=== PATIENT | male | born 1955 | race Two or more races ===

== ENCOUNTER 2019-10-21 07:43 | Inpatient (IN) | payer MEDICAID ==
[~2019-10-21] VITALS: Ht 152.4 cm; Wt 64.5 kg
[2019-10-21 10:08] LABS: Basophils # (auto) 0 10 ^3/uL (0-0.2); Basophils % (auto) 0.1 % (0.0-2.0); Eosinophils # (auto) 0 10 ^3/uL (0-0.8); Hematocrit 45.4 % (41.0-53.0); Hemoglobin 16.1 g/dL (13.5-17.5); Lymphocytes # (auto) 1.1 10 ^3/uL (0.4-5.4); Lymphocytes % (auto) 7.6 % (10.0-50.0); Mean Corpuscular Hgb Conc. 35.4 g/dL (32.0-36.0); Mean Corpuscular Volume 93.4 fL (80.0-100.0); Monocytes # (auto) 0.4 10 ^3/uL (0-1.3); Neutrophils # (auto) 12.4 10 ^3/uL (1.6-8.6); Neutrophils % (auto) 89.3 % (37.0-80.0); Platelet Count (auto) 199 10^3/uL (140-450); Red Blood Cells 4.86 10^6/uL (4.5-5.90); Red Cell Distribution Width 12.9 % (11.8-14.3); White Blood Cell 13.9 10^3/uL (4.4-10.8)
[2019-10-21] MEDS ORDERED: ZINC SULFATE 220mg CAP or TAB PO ONE (10:30)
[2019-10-21] MEDS ORDERED: DexAMETHasone SOD PHOS 10MG/1ML VIAL INJ IV ONE (10:30)
[2019-10-21] MEDS ORDERED: CHOLECALCIFEROL (VITD3) 2,000 UNIT CAP PO ONE (10:30)
[2019-10-21] MEDS ORDERED: cefTRIAXone 1GM/50ML D5W 50 ML IV ONE (10:30)
[2019-10-21] MEDS ORDERED: DOXYCYCLINE 100MG/250ML 250 ML IV ONE (10:30)
[2019-10-21] MEDS ORDERED: ASCORBIC ACID 500 MG TAB PO ONE (10:30)
[2019-10-21 10:37] LABS: Anion Gap 8 (5-15); Blood Urea Nitrogen 11 mg/dL (7-18); Calcium 9.1 mg/dL (8.5-10.1); Carbon Dioxide 25 mmol/L (21-32); Chloride 99 mmol/L (98-107); Glucose 175 mg/dL (74-106); Potassium 3.6 mmol/L (3.5-5.1); Sodium 132 mmol/L (136-145)
[2019-10-21 10:49] LABS: Alanine Aminotransferase 130 U/L (16-61); Alkaline Phosphatase 79 U/L (45-117); Aspartate Aminotransferase 143 U/L (15-37); BUN/Creatinine Ratio 11.7; GFR African American 105 mL/min; GFR Non-African American 86 mL/min; Total Protein 8.4 g/dL (6.4-8.2)
[2019-10-21 11:10] LABS: INR 1.07 (0.9-1.15)
[2019-10-21 11:13] LABS: Magnesium 2.3 mg/dL (1.6-2.6)
[2019-10-21] MEDS ORDERED: SODIUM CHLORIDE 0.9% 1,000 ML IV SCH (13:50)
[2019-10-21] MEDS ORDERED: ACETAMINOPHEN 500 MG TAB PO PRN ×2 (14:00)
[2019-10-21] MEDS ORDERED: NITROGLYCERIN 0.4 MG SL TAB SL PRN (14:00)
[2019-10-21] MEDS ORDERED: DEXTROSE (50%) 50ML SYRG IV PRN (14:00)
[2019-10-21] MEDS ORDERED: traMADol HCL 50 MG TAB PO PRN (14:00)
[2019-10-21] MEDS ORDERED: LACTULOSE 20Gm/30ML SOLN PO PRN (14:00)
[2019-10-21] MEDS: ALBUTEROL SULF HFA 90MCG INH 200DOSE IN SCH (14:00)
[2019-10-21] MEDS: CLINDAMYCIN 600MG IV 50 ML IV SCH ×2 (14:00→22:01)
[2019-10-21] MEDS ORDERED: MORPHINE SULF INJ 2 MG/ML SYRINGE 1ML IV PRN (14:00)
[2019-10-21] MEDS ORDERED: PROMETHAZINE HCL 25 MG/ML 1ML IV PRN (14:00)
[2019-10-21 14:36] VITALS: BP 122/70
[2019-10-21] MEDS ORDERED: LOSA-39 PO (15:24)
[2019-10-21] MEDS ORDERED: TAMS0.4C36 PO (15:24)
[2019-10-21] MEDS ORDERED: AMLO5TAB15 PO (15:24)
[2019-10-21] MEDS ORDERED: GABA300C10 PO (15:24)
[2019-10-21 15:50] VITALS: BP 122/67
[2019-10-21 16:39] VITALS: BP 122/67
[2019-10-21] MEDS: ACCU-CHEK COMFORT CURVE STRIP VI SCH ×2 (16:40→21:47)
[2019-10-21] MEDS: InsuLIN REG 1unit/0.01ml Soln (100units/ml) SC SCH ×2 (16:45→21:48)
[2019-10-21 22:09] VITALS: BP 129/70
[2019-10-22 05:09] VITALS: BP 130/72
[2019-10-22] MEDS: ACCU-CHEK COMFORT CURVE STRIP VI SCH ×4 (05:50→23:26)
[2019-10-22] MEDS: InsuLIN REG 1unit/0.01ml Soln (100units/ml) SC SCH ×4 (05:51→23:27)
[2019-10-22] MEDS: CLINDAMYCIN 600MG IV 50 ML IV SCH (05:54)
[2019-10-22] MEDS: ALBUTEROL SULF HFA 90MCG INH 200DOSE IN SCH ×3 (06:47→22:07)
[2019-10-22 06:53] LABS: Potassium 3.7 mmol/L (3.5-5.1)
[2019-10-22 07:01] LABS: Albumin 2.5 g/dL (3.4-5.0); BUN/Creatinine Ratio 18.4; Bilirubin, Total 0.5 mg/dL (0.2-1.0); Calcium 8.8 mg/dL (8.5-10.1); Total Protein 7.4 g/dL (6.4-8.2)
[2019-10-22 07:07] LABS: Basophils # (auto) 0 10 ^3/uL (0-0.2); Basophils % (auto) 0.1 % (0.0-2.0); Eosinophils # (auto) 0 10 ^3/uL (0-0.8); Hematocrit 43.9 % (41.0-53.0); Hemoglobin 15.4 g/dL (13.5-17.5); Lymphocytes # (auto) 0.7 10 ^3/uL (0.4-5.4); Mean Corpuscular Hemoglobin 32.5 pg (28.0-32.0); Mean Corpuscular Hgb Conc. 35.2 g/dL (32.0-36.0); Mean Corpuscular Volume 92.4 fL (80.0-100.0); Monocytes # (auto) 0.5 10 ^3/uL (0-1.3); Monocytes % (auto) 2.9 % (0.0-12.0); Neutrophils # (auto) 16.9 10 ^3/uL (1.6-8.6); Nucleated Red Blood Cells % 0.1 %; Platelet Count (auto) 235 10^3/uL (140-450); Red Blood Cells 4.75 10^6/uL (4.5-5.90); Red Cell Distribution Width 12.6 % (11.8-14.3); White Blood Cell 18.1 10^3/uL (4.4-10.8)
[2019-10-22 09:00] VITALS: BP 114/63
[2019-10-22] MEDS ORDERED: ENOXAPARIN SOD 40 MG/0.4 ML SYRINGE SC SCH (10:00)
[2019-10-22] MEDS: CHOLECALCIFEROL (VITD3) 2,000 UNIT CAP PO SCH (10:20)
[2019-10-22] MEDS: levoFLOXacin 500MG 100 ML IV SCH (10:20)
[2019-10-22] MEDS: DexAMETHasone SOD PHOS 10MG/1ML VIAL INJ IV SCH (10:20)
[2019-10-22] MEDS: ZINC SULFATE 220mg CAP or TAB PO SCH (10:20)
[2019-10-22] MEDS: ASCORBIC ACID 1,000 MG TAB PO SCH (10:20)
[2019-10-22] MEDS ORDERED: DEXTROSE (50%) 50ML SYRG IV PRN (10:45)
[2019-10-22] MEDS ORDERED: VANCOMYCIN 1GM/250ML 250 ML IV ONE (12:45)
[2019-10-22] MEDS ORDERED: VANCOMYCIN PER PHARMACY 0 MG IV SCH (12:45)
[2019-10-22 13:00] VITALS: BP_SYST 130; BP_SYST 141; BP_DIAS 67; BP_DIAS 74
[2019-10-22 17:00] VITALS: BP 130/67
[2019-10-22] MEDS: FAMOTIDINE 20 MG TAB PO SCH (21:42)
[2019-10-22] MEDS: TEMAZEPAM 15 MG CAP PO PRN (21:42)
[2019-10-22] MEDS: ENOXAPARIN SOD 60 MG/0.6 ML SYRINGE SC SCH (21:43)
[2019-10-22 22:00] VITALS: BP 131/70
[2019-10-23] MEDS: VANCOMYCIN 750mg/250ml 250 ML IV SCH ×2 (01:46→14:30)
[2019-10-23] MEDS: ACCU-CHEK COMFORT CURVE STRIP VI SCH ×4 (05:29→23:28)
[2019-10-23] MEDS: InsuLIN REG 1unit/0.01ml Soln (100units/ml) SC SCH ×4 (05:29→23:26)
[2019-10-23 05:49] VITALS: BP 135/69
[2019-10-23] MEDS: ALBUTEROL SULF HFA 90MCG INH 200DOSE IN SCH ×3 (06:19→21:31)
[2019-10-23 06:38] LABS: Basophils # (auto) 0 10 ^3/uL (0-0.2); Basophils % (auto) 0.1 % (0.0-2.0); Eosinophils # (auto) 0 10 ^3/uL (0-0.8); Hematocrit 45.4 % (41.0-53.0); Hemoglobin 15.5 g/dL (13.5-17.5); Lymphocytes # (auto) 1.5 10 ^3/uL (0.4-5.4); Lymphocytes % (auto) 6.9 % (10.0-50.0); Mean Corpuscular Hemoglobin 31.8 pg (28.0-32.0); Mean Corpuscular Hgb Conc. 34.2 g/dL (32.0-36.0); Monocytes # (auto) 1.3 10 ^3/uL (0-1.3); Monocytes % (auto) 5.8 % (0.0-12.0); Neutrophils # (auto) 19.5 10 ^3/uL (1.6-8.6); Neutrophils % (auto) 87.2 % (37.0-80.0); Nucleated Red Blood Cells % 0.1 %; Platelet Count (auto) 327 10^3/uL (140-450); Red Blood Cells 4.88 10^6/uL (4.5-5.90); Red Cell Distribution Width 12.7 % (11.8-14.3); White Blood Cell 22.3 10^3/uL (4.4-10.8)
[2019-10-23 07:00] LABS: Potassium 3.4 mmol/L (3.5-5.1)
[2019-10-23 07:11] LABS: Albumin 2.7 g/dL (3.4-5.0); BUN/Creatinine Ratio 17.9; Bilirubin, Total 0.5 mg/dL (0.2-1.0); CRP High Sensitivity 7.09 mg/dL (< 0.3); Total Protein 7.9 g/dL (6.4-8.2)
[2019-10-23 09:00] VITALS: BP 125/70
[2019-10-23] MEDS: DexAMETHasone SOD PHOS 10MG/1ML VIAL INJ IV SCH (09:57)
[2019-10-23] MEDS: FAMOTIDINE 20 MG TAB PO SCH ×2 (09:58→22:13)
[2019-10-23] MEDS: ZINC SULFATE 220mg CAP or TAB PO SCH (09:58)
[2019-10-23] MEDS: ASCORBIC ACID 1,000 MG TAB PO SCH (09:58)
[2019-10-23] MEDS: levoFLOXacin 500MG 100 ML IV SCH (09:58)
[2019-10-23] MEDS: CHOLECALCIFEROL (VITD3) 2,000 UNIT CAP PO SCH (09:58)
[2019-10-23] MEDS: ENOXAPARIN SOD 60 MG/0.6 ML SYRINGE SC SCH ×2 (09:59→22:13)
[2019-10-23 13:00] VITALS: BP 130/65
[2019-10-23 17:27] VITALS: BP 123/75
[2019-10-23 22:00] VITALS: BP 134/80
[2019-10-23] MEDS: TEMAZEPAM 15 MG CAP PO PRN (23:29)
[2019-10-24] MEDS: VANCOMYCIN 750mg/250ml 250 ML IV SCH ×3 (02:29→17:16)
[2019-10-24 05:00] VITALS: BP 136/74
[2019-10-24] MEDS: ALBUTEROL SULF HFA 90MCG INH 200DOSE IN SCH ×3 (06:22→22:16)
[2019-10-24 06:42] LABS: Basophils # (auto) 0 10 ^3/uL (0-0.2); Basophils % (auto) 0.2 % (0.0-2.0); Eosinophils # (auto) 0 10 ^3/uL (0-0.8); Lymphocytes # (auto) 1.2 10 ^3/uL (0.4-5.4); Lymphocytes % (auto) 8.6 % (10.0-50.0); Mean Corpuscular Hgb Conc. 34.1 g/dL (32.0-36.0); Mean Corpuscular Volume 93.8 fL (80.0-100.0); Monocytes # (auto) 0.7 10 ^3/uL (0-1.3); Monocytes % (auto) 4.7 % (0.0-12.0); Neutrophils # (auto) 12.5 10 ^3/uL (1.6-8.6); Neutrophils % (auto) 86.5 % (37.0-80.0); Platelet Count (auto) 357 10^3/uL (140-450); Red Blood Cells 5.02 10^6/uL (4.5-5.90); Red Cell Distribution Width 12.9 % (11.8-14.3); White Blood Cell 14.4 10^3/uL (4.4-10.8)
[2019-10-24] MEDS: ACCU-CHEK COMFORT CURVE STRIP VI SCH ×4 (06:46→23:28)
[2019-10-24] MEDS: InsuLIN REG 1unit/0.01ml Soln (100units/ml) SC SCH ×4 (06:48→23:36)
[2019-10-24 09:00] VITALS: BP 133/70
[2019-10-24 10:45] VITALS: BP 133/70
[2019-10-24] MEDS ORDERED: guaiFENesin-DM 100/10mg/5ml SYR PO PRN (11:00)
[2019-10-24] MEDS: FAMOTIDINE 20 MG TAB PO SCH ×2 (11:01→23:27)
[2019-10-24] MEDS: DexAMETHasone SOD PHOS 10MG/1ML VIAL INJ IV SCH (11:01)
[2019-10-24] MEDS: ENOXAPARIN SOD 60 MG/0.6 ML SYRINGE SC SCH ×2 (11:02→23:27)
[2019-10-24] MEDS: CHOLECALCIFEROL (VITD3) 2,000 UNIT CAP PO SCH (11:02)
[2019-10-24] MEDS: ZINC SULFATE 220mg CAP or TAB PO SCH (11:02)
[2019-10-24] MEDS: ASCORBIC ACID 1,000 MG TAB PO SCH (11:02)
[2019-10-24] MEDS: levoFLOXacin 500MG 100 ML IV SCH (12:40)
[2019-10-24 13:00] VITALS: BP 150/74
[2019-10-24] MEDS: THIAMINE HCL 100 MG TAB PO SCH ×2 (16:41→23:27)
[2019-10-24 17:00] VITALS: BP 142/80
[2019-10-24 22:00] VITALS: BP 149/80
[2019-10-24] MEDS: TEMAZEPAM 15 MG CAP PO PRN (23:28)
[2019-10-25] MEDS: VANCOMYCIN 750mg/250ml 250 ML IV SCH ×2 (02:24→09:54)
[2019-10-25 05:00] VITALS: BP 146/80
[2019-10-25 05:56] LABS: Basophils # (auto) 0 10 ^3/uL (0-0.2); Basophils % (auto) 0.2 % (0.0-2.0); Eosinophils # (auto) 0 10 ^3/uL (0-0.8); Eosinophils % (auto) 0.2 % (0.0-7.0); Hematocrit 41.4 % (41.0-53.0); Hemoglobin 14.1 g/dL (13.5-17.5); Lymphocytes # (auto) 1.4 10 ^3/uL (0.4-5.4); Lymphocytes % (auto) 14.7 % (10.0-50.0); Mean Corpuscular Volume 94.1 fL (80.0-100.0); Monocytes # (auto) 0.7 10 ^3/uL (0-1.3); Monocytes % (auto) 7.1 % (0.0-12.0); Neutrophils # (auto) 7.3 10 ^3/uL (1.6-8.6); Neutrophils % (auto) 77.8 % (37.0-80.0); Platelet Count (auto) 316 10^3/uL (140-450); White Blood Cell 9.4 10^3/uL (4.4-10.8)
[2019-10-25 06:18] LABS: Potassium 3.6 mmol/L (3.5-5.1)
[2019-10-25] MEDS: ALBUTEROL SULF HFA 90MCG INH 200DOSE IN SCH ×3 (06:31→22:09)
[2019-10-25 06:33] LABS: BUN/Creatinine Ratio 23.7; CRP High Sensitivity 2.37 mg/dL (< 0.3); Calcium 8.3 mg/dL (8.5-10.1)
[2019-10-25] MEDS: ACCU-CHEK COMFORT CURVE STRIP VI SCH ×3 (06:45→18:07)
[2019-10-25] MEDS: InsuLIN REG 1unit/0.01ml Soln (100units/ml) SC SCH ×3 (06:53→18:07)
[2019-10-25 09:00] VITALS: BP 138/80
[2019-10-25] MEDS: DexAMETHasone SOD PHOS 10MG/1ML VIAL INJ IV SCH (09:54)
[2019-10-25] MEDS: THIAMINE HCL 100 MG TAB PO SCH ×2 (09:54→20:40)
[2019-10-25] MEDS: ASCORBIC ACID 1,000 MG TAB PO SCH (09:55)
[2019-10-25] MEDS: CHOLECALCIFEROL (VITD3) 2,000 UNIT CAP PO SCH (09:55)
[2019-10-25] MEDS: FAMOTIDINE 20 MG TAB PO SCH ×2 (09:55→20:40)
[2019-10-25] MEDS: ZINC SULFATE 220mg CAP or TAB PO SCH (09:55)
[2019-10-25] MEDS: ENOXAPARIN SOD 60 MG/0.6 ML SYRINGE SC SCH ×2 (09:56→20:40)
[2019-10-25] MEDS: levoFLOXacin 500MG 100 ML IV SCH (11:15)
[2019-10-25 13:00] VITALS: BP 143/80
[2019-10-25] MEDS ORDERED: ALBUAER3 IN (16:19)
[2019-10-25] MEDS ORDERED: PRED20TA2 PO (16:19)
[2019-10-25] MEDS ORDERED: FAMO-12 PO (16:19)
[2019-10-25] MEDS ORDERED: DOXY-346 PO (16:19)
[2019-10-25 17:00] VITALS: BP 114/76
[2019-10-25] MEDS: VANCOMYCIN 1GM/250ML 250 ML IV SCH (18:06)
[2019-10-25 22:00] VITALS: BP 127/72
[2019-10-26] MEDS: InsuLIN REG 1unit/0.01ml Soln (100units/ml) SC SCH ×3 (00:46→11:19)
[2019-10-26] MEDS: ACCU-CHEK COMFORT CURVE STRIP VI SCH ×3 (00:46→11:18)
[2019-10-26] MEDS: TEMAZEPAM 15 MG CAP PO PRN (02:00)
[2019-10-26] MEDS: VANCOMYCIN 1GM/250ML 250 ML IV SCH ×2 (02:07→09:33)
[2019-10-26 04:41] VITALS: BP 115/70
[2019-10-26] MEDS: ALBUTEROL SULF HFA 90MCG INH 200DOSE IN SCH ×2 (06:20→14:20)
[2019-10-26 09:12] VITALS: BP 121/77
[2019-10-26] MEDS: FAMOTIDINE 20 MG TAB PO SCH (09:34)
[2019-10-26] MEDS: ZINC SULFATE 220mg CAP or TAB PO SCH (09:34)
[2019-10-26] MEDS: DexAMETHasone SOD PHOS 10MG/1ML VIAL INJ IV SCH (09:34)
[2019-10-26] MEDS: CHOLECALCIFEROL (VITD3) 2,000 UNIT CAP PO SCH (09:34)
[2019-10-26] MEDS: ASCORBIC ACID 1,000 MG TAB PO SCH (09:34)
[2019-10-26] MEDS: THIAMINE HCL 100 MG TAB PO SCH (09:34)
[2019-10-26] MEDS: ENOXAPARIN SOD 60 MG/0.6 ML SYRINGE SC SCH (09:35)
[2019-10-26] MEDS: levoFLOXacin 500MG 100 ML IV SCH (11:11)
[2019-10-26 12:53] VITALS: BP 131/79
== END 2019-10-26 15:45 | disposition home or self-care (01) | DRG 137 ==
LOC: ER 07:43 → TELE 07:44 → TELE-EAST 14:55
PROVIDERS: ADMIT Internal Medicine; ATTEND Hospitalist
DX: U07.1 COVID-19 (principal); J96.01 Acute respiratory failure with hypoxia; J12.89 Other viral pneumonia; E66.9 Obesity, unspecified; E11.9 Type 2 diabetes mellitus without complications; I10 Essential (primary) hypertension; D72.829 Elevated white blood cell count, unspecified; B95.7 Other staphylococcus as the cause of diseases classified elsewhere; R78.81 Bacteremia; Z82.49 Family history of ischemic heart disease and other diseases of the circulatory system; Z83.3 Family history of diabetes mellitus; Z68.29 Body mass index [BMI] 29.0-29.9, adult; F41.9 Anxiety disorder, unspecified
CPT/HCPCS: 36415; 36600; 71045; 80048; 80053; 80202; 82728; 82805; 82962; 83036; 83605; 83615; 83735; 83880; 84484; 85025; 85379; 85610; 85730; 86141; 87040; 87077; 87186; 94640; G0378; J0696; J1100; J1815; J1956; J3490

== ENCOUNTER → 2022-06-26 | Outpatient (CLI) | payer MEDICAID ==
[~2022-06-26] VITALS: Ht 154.9 cm; Wt 65.8 kg
[~2022-06-26] MED LIST: ADENOSINE 55 MG in GIVE UN-DILUTED 0 ML IV ONE; ADENOSINE 90 MG/30 ML INJ IV ONE; ALBUAER3 IN; AMLO-489 PO; DOXY-346 PO; FAMO-12 PO; GABA300C10 PO; LOSA-39 PO; PRED20TA2 PO; TAMS0.4C36 PO
== END | disposition home or self-care (01) ==
LOC: Rad HDHVI 14:12
PROVIDERS: ATTEND Internal Medicine Cardiovascular Disease
DX: I20.0 Unstable angina (principal); I10 Essential (primary) hypertension; E78.00 Pure hypercholesterolemia, unspecified; E11.40 Type 2 diabetes mellitus with diabetic neuropathy, unspecified; E11.21 Type 2 diabetes mellitus with diabetic nephropathy; J44.9 Chronic obstructive pulmonary disease, unspecified; I99.9 Unspecified disorder of circulatory system; Z82.49 Family history of ischemic heart disease and other diseases of the circulatory system
CPT/HCPCS: 78452; 93005; 96374; 96375; A9500; J0153

== ENCOUNTER → 2022-06-28 | Outpatient (CLI) | payer MEDICAID ==
[~2022-06-28] MED LIST changes: -ADENOSINE 55 MG in GIVE UN-DILUTED 0 ML IV ONE; -ADENOSINE 90 MG/30 ML INJ IV ONE
== END | disposition home or self-care (01) ==
LOC: Rad HDHVI 10:02
PROVIDERS: ATTEND Internal Medicine Cardiovascular Disease
DX: I10 Essential (primary) hypertension (principal)
CPT/HCPCS: 93306

== ENCOUNTER 2023-07-23 09:34 | Emergency (ER) | payer MEDICAID ==
[~2023-07-23] VITALS: Ht 175.3 cm; Wt 62.8 kg
[~2023-07-23 09:34] MED LIST changes: -AMLO-489 PO; +AMLO1TAB22 PO; +GABA-1250 PO; -GABA300C10 PO; -LOSA-39 PO; +LOSA-535 PO
[2023-07-23] MEDS ORDERED: BENZ100C97 PO (11:29)
[2023-07-23] MEDS ORDERED: LORA10CA PO (11:29)
[2023-07-23 12:44] VITALS: BP 186/81; PULSE 78; RESP 18; TEMP 98; O2SAT 99
== END 2023-07-23 12:50 | disposition home or self-care (01) ==
LOC: ER 09:34
DX: J39.8 Other specified diseases of upper respiratory tract (principal); F41.9 Anxiety disorder, unspecified; E11.9 Type 2 diabetes mellitus without complications; I10 Essential (primary) hypertension
CPT/HCPCS: 71046

== ENCOUNTER 2023-10-08 11:51 | Inpatient (IN) | payer MEDICAID ==
[~2023-10-08] VITALS: Ht 147.3 cm; Wt 61.0 kg
[~2023-10-08 11:51] MED LIST changes: +BENZ100C97 PO; +LORA10CA PO
[2023-10-08] MEDS ORDERED: SUCRALFATE 1 GM TAB PO ONE (12:30)
[2023-10-08] MEDS ORDERED: PANTOPRAZOLE 40 MG TAB PO ONE (12:30)
[2023-10-08 12:32] LABS: Basophils # (auto) 0.1 10 ^3/uL (0-0.2); Basophils % (auto) 0.8 % (0.0-2.0); Eosinophils % (auto) 11.7 % (0.0-7.0); Hematocrit 45.1 % (41.0-53.0); Lymphocytes % (auto) 34.3 % (10.0-50.0); Mean Corpuscular Hgb Conc. 35.3 g/dL (32.0-36.0); Mean Corpuscular Volume 93.3 fL (80.0-100.0); Monocytes # (auto) 0.8 10 ^3/uL (0-1.3); Neutrophils # (auto) 3.8 10 ^3/uL (1.6-8.6); Neutrophils % (auto) 44.2 % (37.0-80.0); Red Blood Cells 4.84 10^6/uL (4.5-5.90); Red Cell Distribution Width 13.3 % (11.8-14.3); White Blood Cell 8.7 10^3/uL (4.4-10.8)
[2023-10-08 12:48] LABS: Alanine Aminotransferase 60 U/L (7-40); Albumin 4.7 g/dL (3.2-4.8); Alkaline Phosphatase 122 U/L (46-116); Anion Gap 6 (5-15); Aspartate Aminotransferase 23 U/L (13-40); BUN/Creatinine Ratio 10.5 (10.0-20.0); Blood Urea Nitrogen 9 mg/dL (9-23); Calcium 10.1 mg/dL (8.7-10.4); Carbon Dioxide 27 mmol/L (20-30); Chloride 102 mmol/L (98-107); Glucose 318 mg/dL (74-106); Potassium 4.1 mmol/L (3.5-5.1); Sodium 135 mmol/L (136-145)
[2023-10-08 12:49] LABS: Bilirubin, Total 0.6 mg/dL (0.2-1.0); Total Protein 7.7 g/dL (5.7-8.2)
[2023-10-08] MEDS: NITROGLYCERIN 0.4 MG SL TAB SL ONE (13:43)
[2023-10-08] MEDS: SODIUM CHLORIDE 0.9% 500 ML IV ONE (13:46)
[2023-10-08] MEDS: ASPirin 325 MG TAB PO ONE (13:55)
[2023-10-08] MEDS ORDERED: NITROGLYCERIN 0.4 MG SL TAB SL PRN (14:15)
[2023-10-08] MEDS ORDERED: MORPHINE SULFATE INJ 2 MG/ml SYRG IV PRN ×2 (14:15)
[2023-10-08] MEDS ORDERED: ONDANSETRON HCL 4 MG/2 ML VIAL IV PRN (14:15)
[2023-10-08] MEDS ORDERED: DEXTROSE (50%) 50ML SYRG IV PRN (14:15)
[2023-10-08] MEDS ORDERED: ALBUTEROL SULF 2.5 MG/0.5ML(0.5%) NEB SOLN NEB PRN (14:30)
[2023-10-08] MEDS ORDERED: cloNIDine HCL 0.1 MG TAB PO PRN (14:30)
[2023-10-08] MEDS ORDERED: IPRATROPIUM BROM 0.5 MG/2.5ML INH SOL NEB PRN (14:30)
[2023-10-08] MEDS: LOSARTAN POTASSIUM 50 MG TAB PO ONE (14:52)
[2023-10-08] MEDS: FUROSEMIDE 20 MG/2 ML VIAL IV ONE (15:04)
[2023-10-08] MEDS: InsuLIN REG 1unit/0.01ml Soln (100units/ml) SC SCH ×2 (17:09→21:47)
[2023-10-08] MEDS: ACCU-CHEK COMFORT CURVE STRIP VI SCH (17:11)
[2023-10-08 18:47] VITALS: O2SAT 96
[2023-10-08 19:10] VITALS: BP 131/83; PULSE 81; RESP 14; TEMP 98.1; O2SAT 96
[2023-10-08 20:28] VITALS: BP 142/96; PULSE 68; RESP 17; TEMP 98.2; O2SAT 96
[2023-10-08 20:32] VITALS: PULSE 97; RESP 18; O2SAT 94
[2023-10-08] MEDS ORDERED: METF-372 PO (20:50)
[2023-10-08 21:24] LABS: Urine Bacteria None Seen /hpf (None Seen)
[2023-10-08 21:31] LABS: Urine Blood Negative /uL (Negative); Urine Clarity Clear (Clear); Urine Color Light-Yellow (Yellow); Urine Protein, UAD Negative (Negative); Urine Specific Gravity 1.007 (1.001-1.035); Urine Urobilinogen Normal (Negative); Urine WBC 1 /hpf (0 - 3)
[2023-10-08 21:39] LABS: Amphetamine Screen, Urine Neg (NEGATIVE); Barbiturate Scree,Urine Neg (NEGATIVE); Benzodiazephine Screen, Urine Neg (NEGATIVE); Cocaine Screen, Urine Neg (NEGATIVE); Opiate Scree,Urine Neg (NEGATIVE)
[2023-10-08 21:40] LABS: Cannabinoid Screen, Urine Neg (NEGATIVE); Phencyclidine Screen, Urine Neg (NEGATIVE)
[2023-10-08] MEDS: ATORVASTATIN 20 MG TAB PO SCH (21:43)
[2023-10-08] MEDS: SODIUM CHLOR 0.9% PF (SALINE LOCK) 10ML VIAL/SYR IV SCH (21:48)
[2023-10-08] MEDS: HYDROcodone-ACET 5/325MG TAB PO PRN (23:37)
[2023-10-09] VITALS (7 sets, daily range): BP systolic 122–146; BP diastolic 71–91; PULSE 74–108; RESP 16–18; TEMP 97.6–98.9; O2SAT 94–97
[2023-10-09 06:41] LABS: Alanine Aminotransferase 55 U/L (7-40); Albumin 4.2 g/dL (3.2-4.8); Alkaline Phosphatase 97 U/L (46-116); Anion Gap 10 (5-15); Aspartate Aminotransferase 29 U/L (13-40); BUN/Creatinine Ratio 12.3 (10.0-20.0); Bilirubin, Total 0.6 mg/dL (0.2-1.0); Blood Urea Nitrogen 10 mg/dL (9-23); Calcium 9.4 mg/dL (8.7-10.4); Carbon Dioxide 24 mmol/L (20-30); Chloride 102 mmol/L (98-107); Cholesterol 127 mg/dL (< 200); Glucose 240 mg/dL (74-106); HDL Cholesterol 35 mg/dL (40-59); LDL Cholesterol 72 mg/dL (< 100); Potassium 3.6 mmol/L (3.5-5.1); Sodium 136 mmol/L (136-145); Total Protein 6.8 g/dL (5.7-8.2); Triglycerides 224 mg/dL (< 150)
[2023-10-09 07:02] LABS: Lipase 35 U/L (12-53)
[2023-10-09] MEDS: LOSARTAN POTASSIUM 50 MG TAB PO SCH (09:18)
[2023-10-09] MEDS: ASPirin 81 mg TAB PO SCH (09:18)
[2023-10-09] MEDS: FUROSEMIDE 20 MG/2 ML VIAL IV SCH (09:19)
[2023-10-09] MEDS: POTASSIUM CHL 20 Meq TABLET PO ONE (13:09)
[2023-10-09] MEDS: AZITHROMYCIN 250 MG TAB PO ONE (13:09)
[2023-10-09] MEDS: EMPAGLIFLOZIN 10 MG TAB PO SCH (13:09)
[2023-10-09] MEDS: hydroCHLOROthiazide 25 MG TAB PO ONE (13:10)
[2023-10-09] MEDS ORDERED: AZIT-43 PO (15:15)
[2023-10-09] MEDS ORDERED: EMPA1TAB3 PO (15:15)
[2023-10-09] MEDS ORDERED: ASPI-325 PO (15:15)
[2023-10-09] MEDS ORDERED: LOSA-535 PO (15:15)
[2023-10-09] MEDS ORDERED: METF-372 PO (15:15)
[2023-10-09] MEDS ORDERED: ATOR40TA52 PO (15:15)
[2023-10-09] MEDS ORDERED: HYDR25TA5 PO (15:15)
[2023-10-09] MEDS ORDERED: ALBUAER3 IN (15:15)
[2023-10-09] MEDS ORDERED: INSU70IN3 SC (15:15)
[2023-10-09] MEDS ORDERED: TAMS0.4C36 PO (15:15)
[2023-10-10] MEDS ORDERED: hydroCHLOROthiazide 25 MG TAB PO SCH (10:00)
[2023-10-10] MEDS ORDERED: AZITHROMYCIN 250 MG TAB PO SCH (10:00)
== END 2023-10-09 17:52 | disposition home or self-care (01) | DRG 142 ==
LOC: ER 11:51 → TELE 14:16 → TELE-WESTW 20:28
PROVIDERS: ADMIT Internal Medicine; ATTEND Internal Medicine
DX: J84.114 Acute interstitial pneumonitis (principal); I50.31 Acute diastolic (congestive) heart failure; I11.0 Hypertensive heart disease with heart failure; J44.0 Chronic obstructive pulmonary disease with (acute) lower respiratory infection; I16.0 Hypertensive urgency; E11.9 Type 2 diabetes mellitus without complications; K21.9 Gastro-esophageal reflux disease without esophagitis; F41.9 Anxiety disorder, unspecified; E78.5 Hyperlipidemia, unspecified; Z82.49 Family history of ischemic heart disease and other diseases of the circulatory system; Z87.891 Personal history of nicotine dependence; Z90.49 Acquired absence of other specified parts of digestive tract; Z79.84 Long term (current) use of oral hypoglycemic drugs
CPT/HCPCS: 36415; 71045; 71250; 80053; 80061; 80307; 81001; 82306; 82962; 83036; 83690; 83880; 84443; 84484; 85025; 85379; 86431; 93005; 93306; 96361; 96374; G0378; J1815

== ENCOUNTER 2024-01-08 14:39 | Inpatient (IN) | payer MEDICAID ==
[~2024-01-08] VITALS: Ht 152.4 cm; Wt 113.5 kg
[~2024-01-08 14:39] MED LIST changes: -AMLO1TAB22 PO; +ASPI-325 PO; +ATOR40TA52 PO; +AZIT-43 PO; -BENZ100C97 PO; -DOXY-346 PO; +EMPA1TAB3 PO; -FAMO-12 PO; -GABA-1250 PO; +HYDR25TA5 PO; +INSU70IN3 SC; -LORA10CA PO; +METF-372 PO; -PRED20TA2 PO; -TAMS0.4C36 PO; +TAMS0.4C39 PO
[2024-01-08 15:05] LABS: Basophils # (auto) 0 10 ^3/uL (0-0.2); Basophils % (auto) 0.2 % (0.0-2.0); Eosinophils # (auto) 0 10 ^3/uL (0-0.8); Eosinophils % (auto) 0.1 % (0.0-7.0); Hematocrit 48.6 % (41.0-53.0); Hemoglobin 16.8 g/dL (13.5-17.5); Lymphocytes # (auto) 1.3 10 ^3/uL (0.4-5.4); Mean Corpuscular Hemoglobin 32.7 pg (28.0-32.0); Mean Corpuscular Hgb Conc. 34.5 g/dL (32.0-36.0); Mean Corpuscular Volume 94.9 fL (80.0-100.0); Monocytes # (auto) 0.5 10 ^3/uL (0-1.3); Monocytes % (auto) 3.3 % (0.0-12.0); Neutrophils # (auto) 12.3 10 ^3/uL (1.6-8.6); Neutrophils % (auto) 87.4 % (37.0-80.0); Nucleated Red Blood Cells % 0.2 %; Platelet Count (auto) 234 10^3/uL (140-450); Red Blood Cells 5.12 10^6/uL (4.5-5.90); White Blood Cell 14.1 10^3/uL (4.4-10.8)
[2024-01-08 15:14] LABS: Chloride 105 mmol/L (98-107); Sodium 138 mmol/L (136-145)
[2024-01-08 15:15] LABS: Anion Gap 14 (5-15); Carbon Dioxide 19 mmol/L (20-31)
[2024-01-08 15:16] LABS: Calcium 10.3 mg/dL (8.7-10.4)
[2024-01-08 15:20] LABS: Glucose 357 mg/dL (74-106)
[2024-01-08 15:21] LABS: BUN/Creatinine Ratio 12.7 (10.0-20.0); Blood Urea Nitrogen 14 mg/dL (9-23)
--- NOTE | 2024-01-08 15:37 | DVH ---
EXAM: XY CHEST PORTABLE TECHNIQUE: Single frontal chest radiograph CLINICAL HISTORY: SOB COMPARISON: XY CHEST PORTABLE on DOS: 10/08/23, CHEST XRAY 1 VIEW on DOS: 10/23/19, CHEST PORTABLE on DO S: 10/22/19 Findings/Impression: Frontal chest radiograph demonstrates no acute osseous or superficial soft tissue abnormalities. The trachea is midline. The cardiac silhouette and mediastinum are within normal limits. No pneumothorax, pleural effusions, or consolidations.
--- NOTE | 2024-01-08 15:46 | ED.PDOC ---
History of Present Illness HPI Comments 68 y.o male presents to the ED for a chief complaint of phlegm sputum secondary to throat pain and back pain that started 4 days ago. Patient reports moderate amount of phlegm sputum with no blood or vomiting noted, Patient complains of new onset generalized weakness as well. No chest pain, SOB, fever or chills reported at this time. Patient has a medical history of HTN and DM. Chief Complaint: Sore Throat Time Seen by MD: 15:14 Primary Care Provider: GIOVANNA Reviewed Notes: Nurses Notes, Medications, Allergies Allergies: Coded Allergies: NO KNOWN ALLERGIES (Unverified , 05/18/12) Home Meds Active Scripts Insulin NPH Isophane & Reg (Hu (Novolin 70/30 (70-30) 100 Unit/ml) 1 Inj Inj, 20 INJ SC BIDWM for 30 Days, #30 INJ 1 Refill Prov:ALYSSA ANAND MD 10/09/23 Hctz (Hydrochlorothiazide) 25 Mg Tab, 12.5 MG PO DAILY for 30 Days, #30 TAB Prov:ALYSSA ANAND MD 10/09/23 Empagliflozin (Jardiance) 25 Mg Tab, 25 MG PO QAM for 30 Days, #30 TAB Prov:ALYSSA ANAND MD 10/09/23 Azithromycin (Azithromycin) 250 Mg Tab, 250 MG PO DAILY for 4 Days, #4 TAB Prov:ALYSSA ANAND MD 10/09/23 Atorvastatin Calcium (ATORVASTATIN CALCIUM) 40 Mg Tab, 1 TAB PO HS, #30 TAB 0 Refills Prov:ALYSSA ANAND MD 10/09/23 Aspirin (Aspirin Low Dose) 81 Mg Tab, 81 MG PO DAILY for 30 Days, #30 TAB Prov:ALYSAS ANAND MD 10/09/23 Metformin Hydrochloride (Metformin Hcl) 1,000 Mg Tab, 1000 MG PO DAILY for 30 Days, #30 TAB Prov:ALYSSA ANAND MD 10/09/23 Albuterol Sulfate (VENTOLIN MDI) 90 Mcg Ih, 90 MCG IN TID for 30 Days, #30 INH Prov:ALYSSA ANAND MD 10/09/23 Tamsulosin Hcl (Tamsulosin Hcl) 0.4 Mg Cap, 0.4 MG PO QPM for 30 Days, #90 MG Prov:ALYSSA ANAND MD 10/09/23 Losartan Potassium (Losartan Potassium) 100 Mg Tab, 100 MG PO DAILY for 30 Days, #90 MG Prov:ALYSSA ANAND MD 10/09/23 Information Source: Patient Mode of Arrival: Ambulatory Severity: Moderate Timing: Days (4) Duration: Since onset Past Medical History PAST MEDICAL HISTORY: Anxiety, DM, HTN Surgical History: Denies all surgeries Family History Family History: Reviewed,noncontributory to illness, No family hx of Cancer, No family hx of DM, No family hx of Heart olivia, No family hx of HTN, No family hx ofKidney olivia, No family hx of Liver olivia, No family hx of Lung olivia, No family hx of Stroke Social History Smoker: Non-Smoker Alcohol: Denies ETOH Use Drugs: Denies Drug Use Lives In: Home Constitutional: reports: weakness; denies: chills, diaphoresis, fatigue, fever, malaise, sweats, others EENTM: denies: blurred vision, double vision, ear bleeding, ear discharge, ear drainage, ear pain, ear ringing, eye pain, eye redness, hearing loss, mouth pain, mouth swelling, nasal discharge, nose bleeding, nose congestion, nose pain, photophobia, tearing, throat pain, throat swelling, voice changes, others Respiratory: denies: cough, hemoptysis, orthopnea, SOB at rest, shortness of breath, SOB with excertion, stridor, wheezing, others Cardiovascular: denies: chest pain, dizzy spells, diaphoresis, Dyspnea on exertion, edema, irregular heart beat, left arm pain, lightheadedness, palpitations, PND, syncope, others Gastrointestinal: denies: abdomen distended, abdominal pain, blood streaked bowels, constipated, diarrhea, dysphagia, difficulty swallowing, hematemesis, melena, nausea, poor appetite, poor fluid intake, rectal bleeding, rectal pain, vomiting, others Genitourinary: denies: burning, dysuria, flank pain, frequency, hematuria, incontinence, penile discharge, penile sore, pain, testicle pain, testicle swelling, urgency, others Neurological: reports: dizziness, headache; denies: fainting, left sided numbness, left sided weakness, numbness, paresthesia, pre-existing deficit, right sided numbness, right sided weakness, seizure, speech problems, tingling, tremors, weakness, others Musculoskeletal: denies: back pain, gout, joint pain, joint swelling, muscle pain, muscle stiffness, neck pain, others Integumetry: denies: bruises, change in color, change in hair/nails, dryness, laceration, lesions, lumps, rash, wounds, others Allergic/Immunocompromised: denies: Difficulty Healing, Frequent Infections, Hives, Itching, others Hematologic/Lymphatic: denies: anemia, blood clots, easy bleeding, easy bruising, swollen glands, others Endocrine: denies: excessive hunger, excessive sweating, excessive thirst, excessive urination, flushing, intolerance to cold, intolerance to heat, unexplained weight gain, unexplained weight loss, others Psychiatric: denies: anxiety, bipolar disorder, depression, hopeless, panic disorder, schizophrenia, sleepless, suicidal, others All Other Systems: Reviewed and Negative Physical Exam General Appearance: Moderate Distress HEENT: Normal ENT Inspection, Pharynx Normal, TMs Normal Neck: Full Range of Motion, Non-Tender, Normal, Normal Inspection Respiratory: Other (Coarse breath sounds) Cardiovascular: No Edema, No JVD, No Murmur, No Gallop, Normal Peripheral Pulses, Regular Rate/Rhythm Breast Exam: Deferred Gastrointestinal: No Organomegaly, Non Tender, No Pulsatile Mass, Normal Bowel Sounds, Soft Genitalia: Deferred Pelvic: Deferred Rectal: Deferred Extremities: No calf tenderness, Normal capillary refill, Normal inspection, Normal range of motion, Non-tender, No pedal edema Musculoskeletal : Apperance: Normal Neurologic: Alert, funeral workers II-XII nml as Tested, No Motor Deficits, Normal Affect, Normal Mood, No Sensory Deficits Cerebellar Function: Normal Reflexes: Normal Skin: Dry, Normal Color, Warm Peripheral Pulses: 3+ Radial (R), 3+ Radial (L) Lymphatic: No Adenopathy Was a procedure done? Was a procedure done?: No Differential Dx Considerations may include: viral syndrome, strep throat, URI, dehydration X-Ray, Labs, Meds, VS Vital Signs Date Time Temp Pulse Resp B/P (MAP) Pulse Ox O2 Delivery O2 Flow Rate FiO2 01/08/24 15:12 98.2 100 16 148/84 (105) 97 Lab Test 01/08/24 15:46 01/08/24 15:03 01/08/24 15:01 01/08/24 14:59 Range/Units Troponin I High Sensitivity Pending Urine Color Pending Urine Clarity Pending Urine pH Pending Urine Specific [place] Pending Urine Protein Pending Urine Ketones Pending Urine Blood Pending Urine Nitrite Pending Urine Bilirubin Pending Urine Urobilinogen Pending Urine Leukocyte Esterase Pending Urine RBC Pending Urine WBC Pending Urine Squamous Epithelial Cells Pending Urine Bacteria Pending Urine Glucose Pending POC Glucose 320 H 315 H 70-106 mg/dl Test 01/08/24 14:45 Range/Units White Blood Count 14.1 H 4.4-10.8 10^3/uL Red Blood Count 5.12 4.5-5.90 10^6/uL Hemoglobin 16.8 13.5-17.5 g/dL Hematocrit 48.6 41.0-53.0 % Mean Corpuscular Volume 94.9 80.0-100.0 fL Mean Corpuscular Hemoglobin 32.7 H 28.0-32.0 pg Mean Corpuscular Hemoglobin Concent 34.5 32.0-36.0 g/dL Red Cell Distribution Width 13.0 11.8-14.3 % Platelet Count 234 140-450 10^3/uL Mean Platelet Volume 10.6 6.9-10.8 fL Neutrophils (%) (Auto) 87.4 H 37.0-80.0 % Lymphocytes (%) (Auto) 9.0 L 10.0-50.0 % Monocytes (%) (Auto) 3.3 0.0-12.0 % Eosinophils (%) (Auto) 0.1 0.0-7.0 % Basophils (%) (Auto) 0.2 0.0-2.0 % Neutrophils # (Auto) 12.3 H 1.6-8.6 10 ^3/uL Lymphocytes # (Auto) 1.3 0.4-5.4 10 ^3/uL Monocytes # (Auto) 0.5 0-1.3 10 ^3/uL Eosinophils # (Auto) 0 0-0.8 10 ^3/uL Basophils # (Auto) 0 0-0.2 10 ^3/uL Nucleated Red Blood Cells 0.2 % Sodium Level 138 136-145 mmol/L Potassium Level 4.0 3.5-5.1 mmol/L Chloride Level 105 98-107 mmol/L Carbon Dioxide Level 19 L 20-31 mmol/L Anion Gap 14 5-15 Blood Urea Nitrogen 14 9-23 mg/dL Creatinine 1.10 0.700-1.30 mg/dL Glomerular Filtration Rate Calc 74 >90 mL/min BUN/Creatinine Ratio 12.7 10.0-20.0 Serum Glucose 357 H 74-106 mg/dL Calcium Level 10.3 8.7-10.4 mg/dL Troponin I High Sensitivity < 3 L </=54 ng/L B-Type Natriuretic Peptide 25.86 0-100 pg/mL Patient alert. Complaining of increasing phlegm with shortness of breath. Cardiac marker within normal limits. BNP within normal limits. WBC elevated pain Possible pneumonia. Establish intravenous access. Chest x-ray reviewed shows early inflammation. Was given Rocephin. Was given azithromycin. Explained to the patient. X-Ray, Labs, Meds, VS Comment EXAM: XY CHEST PORTABLE TECHNIQUE: Single frontal chest radiograph CLINICAL HISTORY: SOB COMPARISON: XY CHEST PORTABLE on DOS: 10/08/23, CHEST XRAY 1 VIEW on DOS: 10/23/19, CHEST PORTABLE on DOS: 10/22/19 Findings/Impression: Frontal chest radiograph demonstrates no acute osseous or superficial soft tissue abnormalities. The trachea is midline. The cardiac silhouette and mediastinum are within normal limits. No pneumothorax, pleural effusions, or consolidations. Time of 1ST Reevaluation: 15:43 Reevaluation 1ST: Unchanged Patient Education/Counseling: Diagnosis, Treatment, Prognosis Family Education/Counseling: Diagnosis, Treatment, Prognosis Departure 1 Departure Time of Disposition: 16:16 Impression: Primary Impression: Pneumonia Qualified Codes: J18.9 - Pneumonia, unspecified organism Disposition: ADMITTED INPATIENT Admit to: Med Surg Condition: Guarded Critical Care Note Critical Care Time?: No Stability Stability form required: No I personally scribed for SOFYA JONES MD ([email or web address]) on 01/08/24 at 15:46. Electronically submitted by Kya Murillo ([facility]). I personally scribed for SOFYA JONES MD ([email or web address]) on 01/08/24 at 16:25. Electronically submitted by Kya Murillo ([facility]). SOFYA JONES MD Jan 08, 2024 15:46
[2024-01-08 16:02] LABS: Urine Bacteria None Seen /hpf (None Seen)
[2024-01-08 16:51] LABS: Urine Blood Negative /uL (Negative); Urine Clarity Clear (Clear); Urine Color Light-Yellow (Yellow); Urine Protein, UAD TRACE (Negative); Urine Specific Gravity 1.034 (1.001-1.035); Urine Urobilinogen Normal (Negative); Urine WBC <1 /hpf (0 - 3)
[2024-01-08] MEDS: cefTRIAXone 1GM/50ML D5W 50 ML IV ONE (17:10)
[2024-01-08 17:14] VITALS: PULSE 105; RESP 16; O2SAT 98
[2024-01-08] MEDS: AZITHROMYCIN 500MG/ 250ML 250 ML IV ONE (17:24)
[2024-01-08] MEDS ORDERED: ONDANSETRON HCL 4 MG/2 ML VIAL IV PRN (19:00)
[2024-01-08] MEDS ORDERED: DEXTROSE (50%) 50ML SYRG IV PRN (19:00)
[2024-01-08] MEDS ORDERED: ACETAMINOPHEN 325 MG TAB PO PRN (19:00)
[2024-01-08] MEDS ORDERED: guaiFENesin-DM 100/10mg/5ml SYR PO PRN (19:15)
[2024-01-08] MEDS ORDERED: THROAT LOZENGES(CEPASTAT) MT PRN (19:15)
[2024-01-08 19:21] VITALS: BP 151/93; PULSE 105; RESP 18; O2SAT 98
--- NOTE | 2024-01-08 19:35 | DVHHP2 ---
History of Present Illness Reason for Visit: Cough with phlegm History of Present Illness 68-year-old male presented to the ED with a chief complaint of sputum, mucus, throat pain, back pain with generalized weakness. No blood in sputum noted. Per patient phlegm is yellow, no chest pain, shortness of breath, fever or chills reported. No sick contacts reported. COVID and flu a and B pending. Chest x-ray shows no acute findings. The patient is afebrile, however patient is tachycardic, hypertensive, blood sugars in the 300 range, WBCs 14.1, absolute neutrophils 12.3,. Patient denies headache, dizziness, diaphoresis, shortness of breath, abdominal pain, no nausea, vomiting, fever, or chills endorsed by the patient. Patient was admitted for further evaluation medical management. Past Medical History Hypertension, diabetes, anxiety Past Surgical History Patient denies Family History Reviewed noncontributory to the management of this case Smoke: No ALCOHOL: none Drugs: None Lives: with Family Review of Systems Constitutional: Yes: Malaise; No: Fever, Chills, Sweats, Weakness, Other Eyes: No: Pain, Vision change, Conjunctivae inflammation, Eyelid inflammation, Other, Redness ENT: No: Ear pain, Ear discharge, Nose pain, Nose discharge, Nose congestion, Mouth pain, Mouth swelling, Throat pain, Throat swelling, Other Respiratory: Cough, Sputum; No: Dry, Shortness of breath, SOB with excertion, Wheezing, Hemoptysis, Pleuritic Pain, Wheezing, Other Cardiovascular: No: Chest Pain, Palpitations, Orthopnea, Paroxysmal Noc. Dyspnea, Edema, Lt Headedness, Other Gastrointestinal: No: Nausea, Vomiting, Abdominal Pain, Diarrhea, Constipation, Melena, Hematochezia, Other Genitourinary: No Dysuria, No Frequency, No Incontinence, No Hematuria, No Retention, No Other Musculoskeletal: No: other, neck pain, shoulder pain, arm pain, back pain, hand pain, leg pain, foot pain Skin: No: Rash, Lesions, Jaundice, Bruising, Other Neurological: No: Weakness, Numbness, Incoordination, Change in speech, Confusion, Seizures, Other Allergies: Coded Allergies: NO KNOWN ALLERGIES (Unverified , 05/18/12) Medications Current Medications Medications Dose Ordered Sig/Lauren Route Start Time Stop Time Status Last Admin Dose Admin Acetaminophen 650 mg Q6HP PRN PO 01/08/24 19:00 UNV Ondansetron HCl 4 mg Q4HP PRN IV 01/08/24 19:00 UNV Azithromycin 250 ml @ 125 mls/hr DAILY IV 01/09/24 10:00 UNV Ceftriaxone Sodium 50 ml @ 100 mls/hr DAILY@09 IV 01/09/24 09:00 UNV Exam Vital Signs Vital Signs Date Time Temp Pulse Resp B/P (MAP) Pulse Ox O2 Delivery O2 Flow Rate FiO2 01/08/24 17:14 105 16 98 Room Air* 0 21 01/08/24 17:14 97.9 151/93 (112) 97.9 General Appearance: Alert, Oriented X3, Cooperative, No acute distress HEENT: Atraumatic, PERRLA, EOMI, Mucous membr. moist/pink Respiratory: Clear to auscultation, Normal air movement Cardiovascular: Regular rate, Normal S1, Normal S2, No murmurs Abdominal: Normal bowel sounds, Soft, No tenderness, No hepatospenomegaly Extremities: No clubbing, No cyanosis, No edema, Normal pulses, No tenderness/swelling Skin: No rashes, No breakdown Neuro: Normal gait, Normal speech, Strength at 5/5 X4 ext, Normal tone, Sensation intact, Cranial nerves 3-12 NL, Reflexes 2+ Psych/Mental Status: Mental status NL, Mood NL Labs/Xrays labs, imaging and ED notes reviewed Labs Test 01/08/24 15:46 01/08/24 15:03 01/08/24 15:01 01/08/24 14:45 Range/Units Troponin I High Sensitivity < 3 L </=54 ng/L Urine Color Light-yellow Yellow Urine Clarity Clear Clear Urine pH 5.0 5.0-9.0 Urine Specific [place] 1.034 1.001-1.035 Urine Protein Trace H Negative Urine Ketones Negative Negative Urine Blood Negative Negative /uL Urine Nitrite Negative Negative Urine Bilirubin Negative Negative Urine Urobilinogen Normal Negative mg/dL Urine Leukocyte Esterase Negative Negative /uL Urine RBC 1 0 - 3 /hpf Urine WBC <1 0 - 3 /hpf Urine Squamous Epithelial Cells None seen <5 /hpf Urine Bacteria None seen None Seen /hpf Urine Glucose 4+ H Normal mg/dL POC Glucose 320 H 70-106 mg/dl White Blood Count 14.1 H 4.4-10.8 10^3/uL Red Blood Count 5.12 4.5-5.90 10^6/uL Hemoglobin 16.8 13.5-17.5 g/dL Hematocrit 48.6 41.0-53.0 % Mean Corpuscular Volume 94.9 80.0-100.0 fL Mean Corpuscular Hemoglobin 32.7 H 28.0-32.0 pg Mean Corpuscular Hemoglobin Concent 34.5 32.0-36.0 g/dL Red Cell Distribution Width 13.0 11.8-14.3 % Platelet Count 234 140-450 10^3/uL Mean Platelet Volume 10.6 6.9-10.8 fL Neutrophils (%) (Auto) 87.4 H 37.0-80.0 % Lymphocytes (%) (Auto) 9.0 L 10.0-50.0 % Monocytes (%) (Auto) 3.3 0.0-12.0 % Eosinophils (%) (Auto) 0.1 0.0-7.0 % Basophils (%) (Auto) 0.2 0.0-2.0 % Neutrophils # (Auto) 12.3 H 1.6-8.6 10 ^3/uL Lymphocytes # (Auto) 1.3 0.4-5.4 10 ^3/uL Monocytes # (Auto) 0.5 0-1.3 10 ^3/uL Eosinophils # (Auto) 0 0-0.8 10 ^3/uL Basophils # (Auto) 0 0-0.2 10 ^3/uL Nucleated Red Blood Cells 0.2 % Sodium Level 138 136-145 mmol/L Potassium Level 4.0 3.5-5.1 mmol/L Chloride Level 105 98-107 mmol/L Carbon Dioxide Level 19 L 20-31 mmol/L Anion Gap 14 5-15 Blood Urea Nitrogen 14 9-23 mg/dL Creatinine 1.10 0.700-1.30 mg/dL Glomerular Filtration Rate Calc 74 >90 mL/min BUN/Creatinine Ratio 12.7 10.0-20.0 Serum Glucose 357 H 74-106 mg/dL Calcium Level 10.3 8.7-10.4 mg/dL B-Type Natriuretic Peptide 25.86 0-100 pg/mL Assessment/Plan Assessment/Plan Rule out pneumonia Admit to medical/surgical Chest x-ray shows no acute process Started on prophylactic antibiotics due to patient's white blood count, tachycardia and hypertension Supplemental oxygen p.r.n. Encourage incentive spirometry Bronchitis Robitussin p.r.n. cough Encourage Fluids Uncontrolled diabetes mellitus type 2 Accu-Cheks a.c. HS Moderate insulin sliding scale coverage FEN/PPX No GI or VTE prophylaxis indicated Consistent carb diet Plan discussed with: Patient My Orders Orders - LY SAGASTUME PROJECT COORDINATOR RN Procedure Category Date Status Time Admit ADMIT 01/08/24 Transmitted 19:00 Code Status CODE 01/08/24 Transmitted 19:00 Vital Signs FLOR 01/08/24 In Process 19:00 Review Orders With FLOR 01/08/24 In Process Adm. 19:00 Up Ad Cheri FLOR 01/08/24 In Process 19:00 Consistent DIET 01/09/24 Transmitted Carb(Ccho)Diabetes Breakfast Acetaminophen Tablet PHA 01/08/24 Logged (Tylenol Tablet) 19:00 Notify Of Changes FLOR 01/08/24 In Process From Base 19:00 Advance Directive FLOR 01/08/24 In Process 19:00 Basic Metabolic Panel LAB 01/09/24 Verified 04:00 Complete Blood Count LAB 01/09/24 Verified 04:00 Patient Condition ORDERS 01/08/24 Transmitted 19:00 Allergies FLOR 01/08/24 In Process 19:00 Ondansetron Hcl PHA 01/08/24 Logged (Zofran) 19:00 Glucose Blood PHA 01/08/24 Transmitted (Accu-Chek Comfort 22:00 Bedtime Insulin Scale PHA 01/08/24 Transmitted 22:00 Moderate Insulin Ss PHA 01/09/24 Transmitted 07:00 Dextrose 50% Syringe PHA 01/08/24 Transmitted 19:00 Albuterol Medneb PHA 01/08/24 Transmitted (Ventolin Medneb) 22:00 Ipratropium Medneb PHA 01/08/24 Transmitted (Atrovent Medneb) 22:00 Melatonin (Melatonin) PHA 01/08/24 Transmitted 19:00 Covid19 Antigen Toshia LAB 01/08/24 Transmitted Rapid Influenza A&B LAB 01/08/24 Logged 19:00 Azithromycin 500mg/ PHA 01/09/24 Logged 250ml (Zithromax 50 10:00 Ceftriaxone 1gm/50ml PHA 01/09/24 Logged D5w (Rocephin) 09:00 Date of Service: Jan 08, 2024 Billing Provider: LY SAGASTUME Common Visit Codes: [id number] INP/OBS CARE (HIGH) LY SAGASTUME Jan 08, 2024 19:35
[2024-01-08 21:52] VITALS: PULSE 99; RESP 17; O2SAT 99
[2024-01-08] MEDS: ALBUTEROL SULF 2.5 MG/0.5ML(0.5%) NEB SOLN NEB SCH (21:54)
[2024-01-08] MEDS: IPRATROPIUM BROM 0.5 MG/2.5ML INH SOL NEB SCH (21:54)
[2024-01-08 21:58] VITALS: PULSE 86; RESP 18; O2SAT 100
[2024-01-08] MEDS: InsuLIN REG 1unit/0.01ml Soln (100units/ml) SC SCH (22:00)
[2024-01-08] MEDS: ACCU-CHEK COMFORT CURVE STRIP VI SCH (22:18)
[2024-01-08] MEDS: ATORVASTATIN 20 MG TAB PO SCH (22:23)
[2024-01-08 23:02] LABS: COVID19 ANTIGEN SOFIA FIA NEGATIVE (NEGATIVE); Rapid Influenza A Negative (Negative); Rapid Influenza B Negative (Negative)
[2024-01-09] VITALS (19 sets, daily range): BP systolic 119–140; BP diastolic 61–77; PULSE 76–126; RESP 16–20; TEMP 96.9–98.4; O2SAT 91–100
[2024-01-09] MEDS: InsuLIN REG 1unit/0.01ml Soln (100units/ml) SC SCH (06:46)
[2024-01-09 06:54] LABS: Basophils # (auto) 0.1 10 ^3/uL (0-0.2); Basophils % (auto) 0.7 % (0.0-2.0); Eosinophils % (auto) 7.7 % (0.0-7.0); Hematocrit 46.4 % (41.0-53.0); Hemoglobin 16.3 g/dL (13.5-17.5); Lymphocytes # (auto) 3.3 10 ^3/uL (0.4-5.4); Lymphocytes % (auto) 26.4 % (10.0-50.0); Mean Corpuscular Hemoglobin 33.3 pg (28.0-32.0); Monocytes # (auto) 0.9 10 ^3/uL (0-1.3); Monocytes % (auto) 7.6 % (0.0-12.0); Neutrophils # (auto) 7.2 10 ^3/uL (1.6-8.6); Neutrophils % (auto) 57.6 % (37.0-80.0); Nucleated Red Blood Cells % 0.1 %; Platelet Count (auto) 205 10^3/uL (140-450); Red Blood Cells 4.88 10^6/uL (4.5-5.90); Red Cell Distribution Width 12.8 % (11.8-14.3); White Blood Cell 12.6 10^3/uL (4.4-10.8)
[2024-01-09 07:05] LABS: Anion Gap 11 (5-15); Carbon Dioxide 23 mmol/L (20-31); Chloride 106 mmol/L (98-107); Potassium 3.3 mmol/L (3.5-5.1); Sodium 140 mmol/L (136-145)
[2024-01-09 07:11] LABS: BUN/Creatinine Ratio 14.6 (10.0-20.0); Blood Urea Nitrogen 15 mg/dL (9-23)
[2024-01-09 07:13] LABS: Glucose 236 mg/dL (74-106)
--- NOTE | 2024-01-09 09:35 | DVHPNRES ---
Progress Note Date Seen: Jan 09, 2024 Resident Creating Document: YUMIKO JALLOH RESIDENT Medical Necessity Reason Pt with a Central, PICC or Fol: No Subjective Review of Systems Patient is 68 years old male with past medical history not limited to diabetes mellitus type 2, hypertension, anxiety, BPH, ? COPD complaint of cough for last 4 days. As per patient patient has been coughing for last 4 days with yellowish sputum, occasionally black, patient also endorsed some shortness of breath and sore throat for the same duration. Patient denied any chest pain, palpitation, constipation, diarrhea, dysuria, headache or dizziness. Patient was recently hospitalized in September with the same complaint and was diagnosed with pneumonitis. Lab workup revealed leukocytosis. Previous LVEF- 55%. CT angiogram revealed-No pulmonary embolism. No acute thoracic finding. Low lung volumes with patchy ground glass opacity likely represent subsegmental atelectasis or interstitial disease. PMH-diabetes mellitus type 2, hypertension, anxiety, BPH, ? COPD PSH- cholecystectomy Allergy-NKDA Personal History/ Social History- denies smoking, alcoholism or drug abuse Patient was seen today at the bedside. Patient coughing Cardiovascular- deny acute chest pain or shortness of breath or cough or palpitation Respiratory- denies cough or short of breath or wheezing Gastrointestinal- denies any rectal bleeding, nausea or vomiting Musculoskeletal-denies acute joint swelling or tenderness or redness Neurological- denies acute dysarthria, dysphagia, change in vision Psychiatry- denies depression or SI or HI Skin- denies acute rash or purpura Patient was seen today for clinical evaluation. Labs and chart reviewed. Patient complained of cough with yellowish sputum. Patient breathing well in room air. CT angiogram revealed-No pulmonary embolism. No acute thoracic finding. Low lung volumes with patchy ground glass opacity likely represent subsegmental atelectasis or interstitial disease. Objective vital signs Vital Sign Date Time Temp Pulse Resp B/P (MAP) Pulse Ox O2 Delivery O2 Flow Rate FiO2 01/09/24 08:49 96.9 88 17 140/74 (96) 100 96.9 01/09/24 07:22 Room Air 0.0 01/09/24 07:22 21 Total Intake and Output 01/08/24 01/08/24 01/09/24 15:00 23:00 07:00 Intake Total 300 ml 0 ml Balance 300 ml 0 ml medications Current Medications Medications Dose Ordered Sig/Lauren Route Start Time Stop Time Status Last Admin Dose Admin Acetaminophen 650 mg Q6HP PRN PO 01/08/24 19:00 Ondansetron HCl 4 mg Q4HP PRN IV 01/08/24 19:00 Diagnostic Test (Pha) 1 strip ACHS 01/08/24 22:00 01/09/24 07:00 1 STRIP Insulin Human Regular HS SC 01/08/24 22:00 Insulin Human Regular AC SC 01/09/24 07:00 01/09/24 06:46 9 UNITS Dextrose 50 ml UD PRN IV 01/08/24 19:00 Albuterol 2.5 mg Q4HR NEB 01/08/24 22:00 01/09/24 07:22 2.5 MG Ipratropium Tiger 0.5 mg Q4HR NEB 01/08/24 22:00 01/09/24 07:22 0.5 MG Melatonin 5 mg HS PRN PO 01/08/24 19:00 Azithromycin 250 ml @ 125 mls/hr DAILY IV 01/09/24 10:00 Ceftriaxone Sodium 50 ml @ 100 mls/hr DAILY@09 IV 01/09/24 09:00 Guaifenesin/ Dextromethorphan 10 ml Q4HP PRN PO 01/08/24 19:15 Throat Lozenges 1 alesia Q2HP PRN MT 01/08/24 19:15 Aspirin 81 mg DAILY PO 01/09/24 10:00 Hydrochlorothiazide 12.5 mg DAILY PO 01/09/24 10:00 Atorvastatin Calcium 40 mg HS PO 01/08/24 22:00 01/08/24 22:23 40 MG Empaglifozin 10 mg DAILY PO 01/09/24 10:00 Losartan Potassium 100 mg DAILY PO 01/09/24 10:00 Examination General examination- awake, alert, oriented, cooperative HEENT- PEERLA, no acute nasal discharge Cardiovascular- S1-S2 audible, rate and rhythm regular, no murmur Respiratory- CTAB, no wheeze or rhonchi Gastrointestinal-nontender, bowel sound+. Nondistended Musculoskeletal-no acute joint swelling or tenderness or redness# Lower extremity- no leg edema Neurological- cranial nerves intact, no acute dysarthria or dysphagia Psychiatry- denies depression or SI or HI Skin- no acute rash or purpura laboratory and microbiology Laboratory Tests 01/09/24 05:37 Test 01/09/24 05:37 Range/Units Serum Glucose 236 #H 74-106 mg/dL Problem List/Assessment/Plan Problem List/Assessment/Plan #Acute Cough with yellow sputum pneumonia or bronchitis/pulmonary embolism -pulmonary embolism ruled out -CT angio revealed No pulmonary embolism. No acute thoracic finding. Low lung volumes with patchy ground glass opacity likely represent subsegmental atelectasis or interstitial disease. -continue ceftriaxone 1 g IV daily Continue azithromycin 500 mg daily #Suspected acute pneumonitis or bronchitis -pulmonary embolism ruled out -CT angio revealed No pulmonary embolism. No acute thoracic finding. Low lung volumes with patchy ground glass opacity likely represent subsegmental atelectasis or interstitial disease. -continue ceftriaxone 1 g IV daily Continue azithromycin 500 mg daily #Sore throat likely due to pharyngitis -continue with the current management #Hypokalemia potassium 3.3, replenished -asymptomatic -monitor BMP # Hypertension -continue losartan 100 mg daily -continue hydrochlorothiazide 12.5 mg p.o. daily #Hiabetes mellitus type 2 -continue insulin sliding scale #Hyperlipidemia -continue atorvastatin 40 mg p.o. q.h.s. # Anxiety -continue monitoring # BPH -continue Tamsulosin 0.4 mg p.o. q.h.s. Echo on 10/09/2023 revealed-Normal left ventricular systolic function estimated ejection fraction 55%. There is a grade diastolic dysfunction. Goals of care/advance care planning; FULL CODE; discussed with the patient PUD prophylaxis: Pantoprazole 40 mg q.d. DVT prophylaxis: Patient ambulating Plan discussed with Dr. Mackenzie, nursing staff, patient Total time spent on patient evaluation, chart review, assessment and plan, discussion discussion >20 minutes Plan discussed with: Patient Plan discussed with: Patient, Spouse, Other (RN) Date of Service: Jan 09, 2024 Billing Provider: MARJ MACKENZIE MD Common Visit Codes: [id number] INP/OBS CARE(HIGH) YUMIKO JALLOH RESIDENT Jan 09, 2024 09:35 MARJ MACKENZIE MD Jan 09, 2024 22:23
[2024-01-09] MEDS: cefTRIAXone 1GM/50ML D5W 50 ML IV SCH (09:39)
[2024-01-09] MEDS: AZITHROMYCIN 500MG/ 250ML 250 ML IV SCH (09:39)
[2024-01-09] MEDS: LOSARTAN POTASSIUM 50 MG TAB PO SCH (09:40)
[2024-01-09] MEDS: ASPirin-EC 81 mg tab PO SCH (09:40)
[2024-01-09] MEDS: POTASSIUM CHL 20 Meq TABLET PO STA (09:41)
[2024-01-09] MEDS: hydroCHLOROthiazide 25 MG TAB PO SCH (09:42)
[2024-01-09] MEDS ORDERED: EMPAGLIFLOZIN 10 MG TAB PO SCH (10:00)
--- NOTE | 2024-01-09 12:20 | DVH ---
CTA Chest with intravenous contrast INDICATION: R/O PE and overview of lung parenchyma COMPARISON: None TECHNIQUE: Multidetector spiral CTA of the chest was performed of the chest with intravenous contrast . PULMONARY ANGIOGRAPHY PROTOCOL was utilized using a bolus-tracking technique centered on the main p ulmonary artery. Axial, coronal and sagittal multiplanar and MIP reformats were performed. Radiation dose : Chest: CTDI volume is 41.78 mGy. Dose-length product is 583.22 mGy*cm The dose indicators for CT are the volume computed Tomography (CT) dose Index (CTDIvol) and the dose Length product (DLP), and are measured in units of mGy and mGy-cm, respectively. These indicators are not patient dose, but values generated from the CT scanner acquisition factors. The report includes radiation exposure data for exposures received during this examination. Findings: Pulmonary artery: No pulmonary embolism Lower neck: Normal thyroid. Lungs: Low lung volumes with patchy ground glass opacity in both lungs. Heart/Vascular Structures: Normal heart size. No pericardial effusion. Lymph Nodes: No adenopathy Pleura: No pleural effusion or significant pneumothorax. Musculoskeletal: No acute osseous abnormality. Soft tissues: Normal. Upper abdomen: Limited portions of the upper abdomen are unremarkable. IMPRESSION: 1. No pulmonary embolism. 2. No acute thoracic finding. Low lung volumes with patchy ground glass opacity likely represent subs egmental atelectasis or interstitial disease. HS:Y
[2024-01-09] MEDS: IOHEXOL 350 MG/ML 100ML IJ ONE (15:52)
[2024-01-09] MEDS: TAMSULOSIN HYDROCHLORIDE 0.4 MG CAP PO SCH (17:08)
[2024-01-09] MEDS: MELATONIN 5 MG TAB PO PRN (21:30)
[2024-01-10] VITALS (22 sets, daily range): BP systolic 107–121; BP diastolic 68–79; PULSE 78–117; RESP 15–20; TEMP 97.5–98.2; O2SAT 91–99
[2024-01-10] MEDS: PANTOPRAZOLE 40 MG TAB PO SCH (05:46)
[2024-01-10 06:13] LABS: Basophils # (auto) 0.1 10 ^3/uL (0-0.2); Basophils % (auto) 0.9 % (0.0-2.0); Eosinophils # (auto) 1.4 10 ^3/uL (0-0.8); Eosinophils % (auto) 12.4 % (0.0-7.0); Hematocrit 44.5 % (41.0-53.0); Hemoglobin 15.8 g/dL (13.5-17.5); Lymphocytes # (auto) 3.3 10 ^3/uL (0.4-5.4); Lymphocytes % (auto) 29.3 % (10.0-50.0); Mean Corpuscular Hemoglobin 33.3 pg (28.0-32.0); Mean Corpuscular Hgb Conc. 35.4 g/dL (32.0-36.0); Mean Corpuscular Volume 94.1 fL (80.0-100.0); Monocytes # (auto) 0.9 10 ^3/uL (0-1.3); Monocytes % (auto) 7.9 % (0.0-12.0); Neutrophils # (auto) 5.5 10 ^3/uL (1.6-8.6); Neutrophils % (auto) 49.5 % (37.0-80.0); Nucleated Red Blood Cells % 0.4 %; Platelet Count (auto) 190 10^3/uL (140-450); Red Blood Cells 4.73 10^6/uL (4.5-5.90); Red Cell Distribution Width 13.1 % (11.8-14.3); White Blood Cell 11.2 10^3/uL (4.4-10.8)
[2024-01-10 06:22] LABS: Anion Gap 8 (5-15); Carbon Dioxide 25 mmol/L (20-31); Chloride 105 mmol/L (98-107); Potassium 3.5 mmol/L (3.5-5.1); Sodium 138 mmol/L (136-145)
[2024-01-10 06:24] LABS: Calcium 9.8 mg/dL (8.7-10.4)
[2024-01-10 06:28] LABS: Glucose 233 mg/dL (74-106)
[2024-01-10 06:29] LABS: BUN/Creatinine Ratio 17.3 (10.0-20.0); Blood Urea Nitrogen 17 mg/dL (9-23)
[2024-01-10] MEDS ORDERED: guaiFENesin-DM 100/10mg/5ml SYR PO PRN (09:45)
[2024-01-10] MEDS: SODIUM CHLORIDE 0.9% 1,000 ML IV SCH (14:15)
--- NOTE | 2024-01-10 14:16 | DVHPNRES ---
Progress Note Date Seen: Jan 10, 2024 Resident Creating Document: DEBRA STEPHENSON RESIDENT Has the PT tested + for MRSA If YES, has PT been informed?: No Medical Necessity Reason Pt with a Central, PICC or Fol: No Subjective Review of Systems Patient is 68 years old male with past medical history not limited to diabetes mellitus type 2, hypertension, anxiety, BPH, ? COPD complaint of cough for last 4 days. As per patient patient has been coughing for last 4 days with yellowish sputum, occasionally black, patient also endorsed some shortness of breath and sore throat for the same duration. Patient denied any chest pain, palpitation, constipation, diarrhea, dysuria, headache or dizziness. Patient was recently hospitalized in September with the same complaint and was diagnosed with pneumonitis. Lab workup revealed leukocytosis. Previous LVEF- 55%. CT angiogram revealed-No pulmonary embolism. No acute thoracic finding. Low lung volumes with patchy ground glass opacity likely represent subsegmental atelectasis or interstitial disease. Patient seen and examined at bedside. Patient still reports chronic cough and sputum production that he is unable to clear from his throat. Patient also reported throat soreness, upon physical examination throat looks mildly erythematous without any evidence of exudates at this time. The patient also still reports back pain that seems not to be muscular and is kind of pleuritic related to some positioning at bed. CT angio of the chest was performed yesterday which ruled out pulmonary embolism and show patchy ground-glass opacities consistent with possible interstitial pulmonary lung disease. The patient also reported episodes of diarrhea overnight with mild epigastric pain. We will continue IV ceftriaxone azithromycin. We will continue guaifenesin dextromethorphan for cough and reevaluate the patient tomorrow. If diarrhea subsides then we will DC the patient. ROS Constitutional: Denies weight loss, fever and chills. HEENT: Denies changes in vision and hearing. Respiratory: Denies shortness of breath. Reports cough with sputum production unable to be cleared up. Cardiovascular: Denies chest discomfort or palpitations GI: Reports mild epigastric discomfort associated with diarrhea. Denies nausea, vomiting. : Denies dysuria and urinary frequency. Musculoskeletal: Denies myalgias and joint pain Skin: Denies rash and pruritus. Neurological: Denies dizziness, headache, vision or hearing problems Objective vital signs Vital Sign Date Time Temp Pulse Resp B/P (MAP) Pulse Ox O2 Delivery O2 Flow Rate FiO2 01/10/24 13:00 97.7 85 16 120/68 (85) 94 97.7 01/10/24 10:29 Room Air* 0 21 Total Intake and Output 01/09/24 01/09/24 01/10/24 14:59 22:59 06:59 Intake Total 300 ml 300 ml 400 ml Output Total 600 ml Balance 300 ml 300 ml -200 ml medications Current Medications Medications Dose Ordered Sig/Lauren Route Start Time Stop Time Status Last Admin Dose Admin Acetaminophen 650 mg Q6HP PRN PO 01/08/24 19:00 Ondansetron HCl 4 mg Q4HP PRN IV 01/08/24 19:00 Diagnostic Test (Pha) 1 strip ACHS 01/08/24 22:00 01/10/24 11:30 1 STRIP Insulin Human Regular HS SC 01/08/24 22:00 01/09/24 21:29 4 UNITS Insulin Human Regular AC SC 01/09/24 07:00 01/10/24 12:51 9 UNITS Dextrose 50 ml UD PRN IV 01/08/24 19:00 Albuterol 2.5 mg Q4HR NEB 01/08/24 22:00 01/10/24 10:27 2.5 MG Ipratropium [place] 0.5 mg Q4HR NEB 01/08/24 22:00 01/10/24 10:27 0.5 MG Melatonin 5 mg HS PRN PO 01/08/24 19:00 01/09/24 21:30 5 MG Azithromycin 250 ml @ 125 mls/hr DAILY IV 01/09/24 10:00 01/10/24 11:13 125 MLS/HR Ceftriaxone Sodium 50 ml @ 100 mls/hr DAILY@09 IV 01/09/24 09:00 01/10/24 10:10 100 MLS/HR Throat Lozenges 1 alesia Q2HP PRN MT 01/08/24 19:15 Aspirin 81 mg DAILY PO 01/09/24 10:00 01/10/24 10:11 81 MG Hydrochlorothiazide 12.5 mg DAILY PO 01/09/24 10:00 01/10/24 10:12 12.5 MG Atorvastatin Calcium 40 mg HS PO 01/08/24 22:00 01/09/24 21:25 40 MG Losartan Potassium 100 mg DAILY PO 01/09/24 10:00 01/10/24 10:24 100 MG Tamsulosin HCl 0.4 mg QPM PO 01/09/24 18:00 01/09/24 17:08 0.4 MG Pantoprazole Sodium 40 mg DAILY@0600 PO 01/10/24 06:00 01/10/24 05:46 40 MG Guaifenesin/ Dextromethorphan 10 ml BID PRN PO 01/10/24 09:45 Examination Physical Examination General: Patient alert and oriented in person, place and time. Patient following commands. HEENT: Normocephalic, atraumatic, moist mucous membranes Respiratory/pulmonary: Clear lungs bilaterally, no associated crackles or wheezes. Cardiovascular: Normal heart sounds S1 and S2 with no associated murmurs Abdomen: Abdomen nondistended, there is mild abd pain at the epigastric region. no palpable masses. Extremities: There is no peripheral edema present at the lower extremities. Peripheral Pulses: 3+ Radial (R). 3+ Radial (L). 3+ Dorsalis pedis (R). 3+ Dorsalis pedis(L) Skin: No rashes or pruritus, there is no sacral edema present at this time. Neurological: Intact cranial nerves with no focal neurologic deficits laboratory and microbiology Laboratory Tests 01/10/24 05:20 Test 01/10/24 05:20 Range/Units Serum Glucose 233 H 74-106 mg/dL Microbiology Date/Time Source Procedure Growth Status 01/09/24 09:37 Sputum Gram Stain Pending Resulted 01/09/24 09:37 Sputum Respiratory Culture - Preliminary Resulted Problem List/Assessment/Plan Problem List/Assessment/Plan Assessment/Plan Acute respiratory failure likely due to pneumonia and chronic bronchitis Ruled out pulmonary embolism -CT angio revealed No pulmonary embolism. No acute thoracic finding. Low lung volumes with patchy ground glass opacity likely represent subsegmental atelectasis or interstitial disease. -continue ceftriaxone 1 g IV daily -Continue azithromycin 500 mg daily -Start guaifenesin dextromethorphan BID Suspected acute pneumonitis or bronchitis -pulmonary embolism ruled out -CT angio revealed No pulmonary embolism. No acute thoracic finding. Low lung volumes with patchy ground glass opacity likely represent subsegmental atelectasis or interstitial disease. -continue ceftriaxone 1 g IV daily -Continue azithromycin 500 mg daily Sore throat likely due to pharyngitis -Mild throat erythema without evidence of exudates/bact infection -continue with the current management Acute diarrhea -Patient reported 3 episodes of watery diarrhea overnight, likely abs induced -Will start fluids at low dose 60cc/hr Hypokalemia -potassium today was 3.5 -asymptomatic -monitor BMP Primary Hypertension -continue losartan 100 mg daily -continue hydrochlorothiazide 12.5 mg p.o. daily Diabetes mellitus type 2 -continue insulin sliding scale -Monitor BG Hyperlipidemia -continue atorvastatin 40 mg p.o. q.h.s. Anxiety -continue monitoring BPH -continue Tamsulosin 0.4 mg p.o. q.h.s. Echo on 10/09/2023 revealed-Normal left ventricular systolic function estimated ejection fraction 55%. There is a grade diastolic dysfunction. PUD prophylaxis: Pantoprazole 40 mg q.d. DVT prophylaxis: Patient ambulating Goals of care discussed with the patient, son and at bedside for >23min, FULL CODE Plan discussed with Dr. Mackenzie Plan discussed with: Patient, Spouse, Son My Orders My Orders Orders - DEBRA STEPHENSON Procedure Category Date Status Time Guaifenesin-Dextromet PHA 01/10/24 In Process Liquid (Robitussin 09:45 Date of Service: Jan 10, 2024 Billing Provider: MARJ MACKENZIE MD Common Visit Codes: [id number] INP/OBS CARE(HIGH) DEBRA STEPHENSON RESIDENT Jan 10, 2024 14:16 MARJ MACKENZIE MD Jan 10, 2024 21:52
[2024-01-10] MEDS ORDERED: LOPERAMIDE HCL 2 MG CAP/TAB PO PRN (20:00)
[2024-01-10] MEDS: LOPERAMIDE HCL 2 MG CAP/TAB PO ONE (20:00)
[2024-01-11] VITALS (16 sets, daily range): BP systolic 106–116; BP diastolic 59–80; PULSE 85–108; RESP 17–20; TEMP 97.5–97.8; O2SAT 91–99
[2024-01-11 07:57] LABS: Anion Gap 9 (5-15); Carbon Dioxide 24 mmol/L (20-31); Chloride 105 mmol/L (98-107); Potassium 3.5 mmol/L (3.5-5.1); Sodium 138 mmol/L (136-145)
[2024-01-11 07:58] LABS: Calcium 9.7 mg/dL (8.7-10.4)
[2024-01-11 08:00] LABS: Basophils # (auto) 0.1 10 ^3/uL (0-0.2); Basophils % (auto) 0.5 % (0.0-2.0); Eosinophils # (auto) 1.5 10 ^3/uL (0-0.8); Eosinophils % (auto) 13.6 % (0.0-7.0); Hematocrit 45.3 % (41.0-53.0); Hemoglobin 15.8 g/dL (13.5-17.5); Lymphocytes # (auto) 2.7 10 ^3/uL (0.4-5.4); Lymphocytes % (auto) 25.4 % (10.0-50.0); Mean Corpuscular Hemoglobin 33.3 pg (28.0-32.0); Mean Corpuscular Hgb Conc. 34.8 g/dL (32.0-36.0); Mean Corpuscular Volume 95.4 fL (80.0-100.0); Monocytes # (auto) 0.8 10 ^3/uL (0-1.3); Monocytes % (auto) 7.6 % (0.0-12.0); Neutrophils # (auto) 5.7 10 ^3/uL (1.6-8.6); Neutrophils % (auto) 52.9 % (37.0-80.0); Nucleated Red Blood Cells % 0.1 %; Platelet Count (auto) 191 10^3/uL (140-450); Red Blood Cells 4.74 10^6/uL (4.5-5.90); Red Cell Distribution Width 13.3 % (11.8-14.3); White Blood Cell 10.7 10^3/uL (4.4-10.8)
[2024-01-11 08:03] LABS: BUN/Creatinine Ratio 15.4 (10.0-20.0); Blood Urea Nitrogen 14 mg/dL (9-23); Glucose 205 mg/dL (74-106)
--- NOTE | 2024-01-11 12:07 | DVHDSRES ---
Discharge Summary Date of Admission Resident Creating Document: DEBRA STEPHENSON RESIDENT Jan 08, 2024 at 19:07 Date of Discharge: Jan 11, 2024 Admitting Diagnosis Cough with yellowish sputum Labs/Diagnostic Data: Laboratory Results Test 01/11/24 06:43 01/11/24 06:08 01/09/24 05:37 01/08/24 21:57 POC Glucose 196 mg/dl (70-106) White Blood Count 10.7 10^3/uL (4.4-10.8) Red Blood Count 4.74 10^6/uL (4.5-5.90) Hemoglobin 15.8 g/dL (13.5-17.5) Hematocrit 45.3 % (41.0-53.0) Mean Corpuscular Volume 95.4 fL (80.0-100.0) Mean Corpuscular Hemoglobin 33.3 pg (28.0-32.0) Mean Corpuscular Hemoglobin Concent 34.8 g/dL (32.0-36.0) Red Cell Distribution Width 13.3 % (11.8-14.3) Platelet Count 191 10^3/uL (140-450) Mean Platelet Volume 10.7 fL (6.9-10.8) Neutrophils (%) (Auto) 52.9 % (37.0-80.0) Lymphocytes (%) (Auto) 25.4 % (10.0-50.0) Monocytes (%) (Auto) 7.6 % (0.0-12.0) Eosinophils (%) (Auto) 13.6 % (0.0-7.0) Basophils (%) (Auto) 0.5 % (0.0-2.0) Neutrophils # (Auto) 5.7 10 ^3/uL (1.6-8.6) Lymphocytes # (Auto) 2.7 10 ^3/uL (0.4-5.4) Monocytes # (Auto) 0.8 10 ^3/uL (0-1.3) Eosinophils # (Auto) 1.5 10 ^3/uL (0-0.8) Basophils # (Auto) 0.1 10 ^3/uL (0-0.2) Nucleated Red Blood Cells 0.1 % Sodium Level 138 mmol/L (136-145) Potassium Level 3.5 mmol/L (3.5-5.1) Chloride Level 105 mmol/L (98-107) Carbon Dioxide Level 24 mmol/L (20-31) Anion Gap 9 (5-15) Blood Urea Nitrogen 14 mg/dL (9-23) Creatinine 0.91 mg/dL (0.700-1.30) Glomerular Filtration Rate Calc 93 mL/min (>90) BUN/Creatinine Ratio 15.4 (10.0-20.0) Serum Glucose 205 mg/dL (74-106) Calcium Level 9.7 mg/dL (8.7-10.4) Hemoglobin A1c 9.9 % A1C (<5.7) Thyroid Stimulating Hormone (TSH) 2.06 uIU/mL (0.55-4.78) Influenza Type A Antigen Negative (Negative) Influenza Type B Antigen Negative (Negative) SARS-CoV-2 Antigen (Rapid) Negative (NEGATIVE) Test 01/08/24 15:46 01/08/24 15:03 01/08/24 14:45 Troponin I High Sensitivity < 3 ng/L (</=54) Urine Color Light-yellow (Yellow) Urine Clarity Clear (Clear) Urine pH 5.0 (5.0-9.0) Urine Specific [place] 1.034 (1.001-1.035) Urine Protein Trace (Negative) Urine Ketones Negative (Negative) Urine Blood Negative /uL (Negative) Urine Nitrite Negative (Negative) Urine Bilirubin Negative (Negative) Urine Urobilinogen Normal mg/dL (Negative) Urine Leukocyte Esterase Negative /uL (Negative) Urine RBC 1 /hpf (0 - 3) Urine WBC <1 /hpf (0 - 3) Urine Squamous Epithelial Cells None seen /hpf (<5) Urine Bacteria None seen /hpf (None Seen) Urine Glucose 4+ mg/dL (Normal) B-Type Natriuretic Peptide 25.86 pg/mL (0-100) Other Laboratory Tests 01/11/24 06:08 Brief Hx & Hospital Course: Patient is 68 years old male with past medical history not limited to diabetes mellitus type 2, hypertension, anxiety, BPH, ? COPD complaint of cough for last 4 days. As per patient patient has been coughing for last 4 days with yellowish sputum, occasionally black, patient also endorsed some shortness of breath and sore throat for the same duration. Patient denied any chest pain, palpitation, constipation, diarrhea, dysuria, headache or dizziness. Patient was recently hospitalized in September with the same complaint and was diagnosed with pneumonitis. Lab workup revealed leukocytosis. Previous LVEF- 55%. CT angiogram revealed-No pulmonary embolism. No acute thoracic finding. Low lung volumes with patchy ground glass opacity likely represent subsegmental atelectasis or interstitial disease. Hospital course During hospitalization patient was treated with IV antibiotic for suspected acute bronchitis/pneumonia. Patient also complained of diarrhea yesterday which improved. Sputum culture was negative for significant growth. Patient is clinically feeling better, no acute short of breath. Patient is being discharged home in hemodynamically stable condition. Patient was prescribed Augmentin 875 mg p.o. b.i.d. for 3 more days. Patient's med was sent electronically to the designated pharmacy. Patient was advised to follow up with the PCP in 1 week. PMH-diabetes mellitus type 2, hypertension, anxiety, BPH, ? COPD PSH- cholecystectomy Allergy-NKDA Personal History/ Social History- denies smoking, alcoholism or drug abuse Patient was seen today at the bedside. Patient coughing Cardiovascular- deny acute chest pain or shortness of breath or cough or palpitation Respiratory- denies cough or short of breath or wheezing Gastrointestinal- denies any rectal bleeding, nausea or vomiting Musculoskeletal-denies acute joint swelling or tenderness or redness Neurological- denies acute dysarthria, dysphagia, change in vision Psychiatry- denies depression or SI or HI Skin- denies acute rash or purpura General examination- awake, alert, oriented, cooperative HEENT- PEERLA, no acute nasal discharge Cardiovascular- S1-S2 audible, rate and rhythm regular, no murmur Respiratory- CTAB, no wheeze or rhonchi Gastrointestinal-nontender, bowel sound+. Nondistended Musculoskeletal-no acute joint swelling or tenderness or redness# Lower extremity- no leg edema Neurological- cranial nerves intact, no acute dysarthria or dysphagia Psychiatry- denies depression or SI or HI Skin- no acute rash or purpura Condition at Discharge: Stable Final Diagnosis/Problems List Acute respiratory failure likely due to pneumonia and chronic bronchitis acute pneumonitis or bronchitis Sore throat likely due to pharyngitis Acute diarrhea Hypokalemia Hypertension Diabetes mellitus type 2 Hyperlipidemia Anxiety BPH Discharge Disposition: Home Discharge Instruct/Medications Diet: Consistent carbohydrate, Cardiac 2g Na,low cholest Activity: No Restrictions, As Tolerated Follow Up/Referral: Please follow up with the PCP in 1 week Medications: Augmentin 1 875 tab b.i.d. for 3 days Discharge Statement: "Patient was advised to return to the ER or call 911 if any headaches, dizziness, shortness of breath, chest pain, abdominal pain, bleeding, fevers, or worsening of medical condition. Patient was counseled about treatment plan, medications, possible side effects, patientverbalized understanding. All questions were answered to the best of my ability. This discharge took greater then 30 minutes in planning, reviewing documentation, counseling the patient, and discussing with other team members." ASSESSMENT ASSESSMENT Assessment Acute respiratory failure likely due to pneumonia and chronic bronchitis acute pneumonitis or bronchitis Sore throat likely due to pharyngitis Acute diarrhea Hypokalemia Hypertension Diabetes mellitus type 2 Hyperlipidemia Anxiety BPH YUMIKO JALLOH RESIDENT Jan 11, 2024 12:07
[2024-01-11] MEDS ORDERED: AUG875T PO (12:38)
== END 2024-01-11 15:50 | disposition home or self-care (01) | DRG 720 ==
LOC: ER 14:39 → OVERFLOW 19:07 → CENTRAL 01-09 03:10
PROVIDERS: ADMIT Internal Medicine; ATTEND Internal Medicine
DX: A41.9 Sepsis, unspecified organism (principal); J96.00 Acute respiratory failure, unspecified whether with hypoxia or hypercapnia; J15.69 Pneumonia due to other Gram-negative bacteria; J15.9 Unspecified bacterial pneumonia; J02.9 Acute pharyngitis, unspecified; I10 Essential (primary) hypertension; F41.9 Anxiety disorder, unspecified; Z20.822 Contact with and (suspected) exposure to COVID-19; E11.9 Type 2 diabetes mellitus without complications; N40.0 Benign prostatic hyperplasia without lower urinary tract symptoms; E87.6 Hypokalemia; E78.5 Hyperlipidemia, unspecified; J42 Unspecified chronic bronchitis; J98.4 Other disorders of lung; Z90.49 Acquired absence of other specified parts of digestive tract; J20.9 Acute bronchitis, unspecified
CPT/HCPCS: 36415; 71045; 71275; 80048; 81001; 82962; 83036; 83880; 84443; 84484; 85025; 87070; 87205; 87426; 87804; 94640; 96365; 96368; G0378; J1815

== ENCOUNTER 2024-02-02 11:30 | Emergency (ER) | payer MEDICAID ==
[~2024-02-02] VITALS: Ht 170.2 cm; Wt 63.0 kg
[~2024-02-02 11:30] MED LIST changes: +AUG875T PO; -AZIT-43 PO
[2024-02-02 13:46] VITALS: PULSE 112; RESP 17; TEMP 98.7; O2SAT 100
[2024-02-02] MEDS ORDERED: PROM1SOL4 PO (13:47)
[2024-02-02] MEDS ORDERED: GUAI600T78 PO (13:47)
--- NOTE | 2024-02-02 13:47 | ED.PDOC ---
SOB-HPI HPI Comments Patient is 68 years old male with past medical history not limited to diabetes mellitus type 2, hypertension, anxiety, BPH, COPD presents for non productive cough Reports he was recently diagnosed with PNA Was rx benzonate with no improvement Patient denied any chest pain, palpitation, constipation, diarrhea, dysuria, headache or dizziness. Patient was recently hospitalized Chief Complaint: Cough Time Seen by MD: 13:09 Primary Care Provider: none Reviewed notes: Nurses Notes, Medications, Allergies Information Source: Patient Mode of Arrival: Ambulatory Past Medical History PAST MEDICAL HISTORY: Anxiety, DM, HTN Surgical History: Denies all surgeries Family History Family History: Reviewed,noncontributory to illness, No family hx of Cancer, No family hx of DM, No family hx of Heart olivia, No family hx of HTN, No family hx ofKidney olivia, No family hx of Liver olivia, No family hx of Lung olivia, No family hx of Stroke Social History Smoker: Non-Smoker Alcohol: Denies ETOH Use Drugs: Denies Drug Use Lives In: Home All Other Systems: Reviewed and Negative (Per HPI) Physical Exam General Appearance: No Apparent Distress, Normal HEENT: Normal ENT Inspection, Pharynx Normal, TMs Normal Neck: Full Range of Motion, Non-Tender, Normal, Normal Inspection Respiratory: Chest Non-Tender, Lungs Clear, No Accessory Muscle Use, No Respiratory Distress, Normal Breath Sounds Cardiovascular: No Edema, No JVD, No Murmur, No Gallop, Normal Peripheral Pulses, Regular Rate/Rhythm Breast Exam: Deferred Gastrointestinal: No Organomegaly, Non Tender, No Pulsatile Mass, Normal Bowel Sounds, Soft Genitalia: Deferred Pelvic: Deferred Rectal: Deferred Extremities: No calf tenderness, Normal capillary refill, Normal inspection, Normal range of motion, Non-tender, No pedal edema Musculoskeletal : Apperance: Normal Neurologic: Alert, travel manager II-XII nml as Tested, No Motor Deficits, Normal Affect, Normal Mood, No Sensory Deficits Cerebellar Function: Normal Reflexes: Normal Skin: Dry, Normal Color, Warm Lymphatic: No Adenopathy Was a procedure done? Was a procedure done?: No Differential Dx Differential Diagnosis: Bronchitis X-Ray, Labs, Meds, VS Vital Signs Date Time Temp Pulse Resp B/P (MAP) Pulse Ox O2 Delivery O2 Flow Rate FiO2 02/02/24 14:01 99 17 154/86 (108) 96 02/02/24 13:46 112 17 100 Room Air* 0 21 02/02/24 13:46 98.7 112 17 176/97 (123) 100 98.7 02/02/24 11:49 98.7 112 17 176/97 (123) 100 X-Ray, Labs, Meds, VS Comment History and physical consistent of URI Take medication as prescribed No concerns for pneumonia at this time. Discussed that cough can linger up to 6 weeks after viral URI ED precautions if cough does not alleviate or if cough worsens Supportive care and return precautions discussed Counseled viral infection and explained that antibiotics would not be helpful in resolving the illness sooner. Recommended vitamin C, rest, handwashing, and symptomatic care. Expect 2-week course with possibly of cough lingering up to 6 weeks. Nonpharmacological remedies for fluids has been recommended as well Follow-up with PCP in 2 to 3 days Patient verbalized understanding and agreed to treatment plan Vital signs stable, afebrile, no acute distress noted Patient ambulatory with strong steady gait Advised to return precautions for any new or worsening symptoms, return to ER immediately for re-evaluation Patient is aware that the purpose of this visit was for an acute medical emergency requiring emergent stabilization. Chronic conditions, including malignancies have not been ruled out. Patient is instructed to follow up with PCP as directed and discharge instructions for continued care and workup. If unable to arrange follow-up, patient is to return to the emergency department for reassessment. Patient (parent or legal guardian if applicable) was given verbal and written discharge instructions and acknowledges understanding. Time of 1ST Reevaluation: 13:30 Reevaluation 1ST: Improved Patient Education/Counseling: Diagnosis, Treatment Family Education/Counseling: Diagnosis, Treatment Departure 1 Departure Time of Disposition: 13:46 Impression: Primary Impression: Bronchitis Disposition: 01 HOME / SELF CARE / HOMELESS Condition: Stable e-Prescriptions Guaifenesin (Mucinex) 600 Mg Tab 1 TAB PO BID for 7 Days, #14 TAB 0 Refills Prov: CHRISTEL JAMESON ROPE RIDER 02/02/24 Promethazine-Dm (Promethazine Dm 6.25-15 mg/5Ml) 1 Bushra Bushra 5 ML PO TIDPRN PRN for 10 Days, #150 ML 0 Refills Prov: CHRISTEL JAMESON NP 02/02/24 Discharged With: Self Critical Care Note Critical Care Time?: No Stability Stability form required: No Heart Score Heart Score: Heart Score Response (Comments) Value History N/A 0 EKG N/A 0 Age N/A 0 Risk Factors N/A 0 Troponin N/A 0 Total 0 CHRISTEL JAMESON NP Feb 02, 2024 13:47
[2024-02-02 14:01] VITALS: BP 154/86; PULSE 99; RESP 17; O2SAT 96
== END 2024-02-02 14:06 | disposition home or self-care (01) ==
LOC: ER 11:30
DX: J40 Bronchitis, not specified as acute or chronic (principal); I10 Essential (primary) hypertension; E11.9 Type 2 diabetes mellitus without complications; J44.9 Chronic obstructive pulmonary disease, unspecified

== ENCOUNTER → 2024-12-17 | Outpatient (CLI) | payer MEDICAID ==
[~2024-12-17] MED LIST changes: +GUAI600T78 PO; +PROM1SOL4 PO
[2024-12-17 07:04] LABS: Hematocrit 45.2 % (41.0-53.0); Hemoglobin 16.0 g/dL (13.5-17.5); Mean Corpuscular Hemoglobin 33.2 pg (28.0-32.0); Mean Corpuscular Volume 93.9 fL (80.0-100.0); Nucleated Red Blood Cells % 0.1 %
[2024-12-17 07:20] LABS: Albumin 4.5 g/dL (3.2-4.8); Alkaline Phosphatase 87 U/L (46-116); Anion Gap 9 (5-15); BUN/Creatinine Ratio 10.1 (10.0-20.0); Blood Urea Nitrogen 10 mg/dL (9-23); Calcium 9.3 mg/dL (8.7-10.4); Carbon Dioxide 29 mmol/L (20-31); Chloride 107 mmol/L (98-107); Potassium 4.6 mmol/L (3.5-5.1); Sodium 145 mmol/L (136-145); Total Protein 7.6 g/dL (5.7-8.2); Triglycerides 123 mg/dL (< 150)
[2024-12-17 07:21] LABS: Bilirubin, Total 0.7 mg/dL (0.2-1.0); Cholesterol 135 mg/dL (< 200); HDL Cholesterol 49 mg/dL (40-59)
[2024-12-17 07:22] LABS: Alanine Aminotransferase 55 U/L (7-40); Glucose 140 mg/dL (74-106)
== END | disposition home or self-care (01) ==
LOC: LAB 06:22
PROVIDERS: ATTEND Internal Medicine
DX: E55.9 Vitamin D deficiency, unspecified (principal); Z79.899 Other long term (current) drug therapy
CPT/HCPCS: 36415; 80053; 80061; 82306; 83036; 85025

== ENCOUNTER → 2024-12-22 | Outpatient (CLI) | payer MEDICAID ==
[2024-12-22 16:53] LABS: Urine Protein, UAD Negative (Negative)
== END | disposition home or self-care (01) ==
LOC: LAB 14:37
PROVIDERS: ATTEND Internal Medicine
DX: N39.0 Urinary tract infection, site not specified (principal)
CPT/HCPCS: 81001

== ENCOUNTER 2025-02-23 14:37 | Inpatient (IN) | payer MEDICAID ==
[~2025-02-23] VITALS: Ht 152.4 cm; Wt 62.5 kg
--- NOTE | 2025-02-23 15:15 | ED.PDOC ---
GI ASSESSMENT HPI Comments 69 year old male with PMHx HTN, DM, HLD, asthma presents to the ED with a chief complaint of abdominal pain onset 2 weeks. Patient states he has been experiencing diffused abdominal pain, nausea, vomiting, constipation, back pain, abdominal distension and poor appetite. When pain began 2 weeks ago, pain was 8/10, currently 2/10. Denies hematemesis, dizziness, fever, chills, dysuria, hematuria, chest pain, shortness of breath, numbness/tingling. No other symptoms or modifying factors present at this time. Chief Complaint: Abdominal Pain Time Seen by MD: 15:05 Primary Care Provider: none Reviewed Notes: Nurses Notes, Medications, Allergies Allergies: Coded Allergies: NO KNOWN ALLERGIES (Unverified , 05/18/12) Home Meds Active Scripts Guaifenesin (Mucinex) 600 Mg Tab, 1 TAB PO BID for 7 Days, #14 TAB 0 Refills Prov:CHRISTEL JAMESON [employer] 02/02/24 Promethazine-Dm (Promethazine Dm 6.25-15 mg/5Ml) 1 Bushra Bushra, 5 ML PO TIDPRN PRN f or 10 Days, #150 ML 0 Refills Prov:CHRISTEL JAMESON NP 02/02/24 Amoxicillin & Pot Clavulanate (AUGMENTIN TABLET) 875 Mg Tb, 875 MG PO BID, #14 TAB Prov:MARJ MABRY MD 01/11/24 Insulin NPH Isophane & Reg (Hu (Novolin 70/30 (70-30) 100 Unit/ml) 1 Inj Inj, 20 INJ SC BIDWM for 30 Days, #30 INJ 1 Refill Prov:ALYSSA ANAND MD 10/09/23 Hctz (Hydrochlorothiazide) 25 Mg Tab, 12.5 MG PO DAILY for 30 Days, #30 TAB Prov:ALYSSA ANAND MD 10/09/23 Empagliflozin (Jardiance) 25 Mg Tab, 25 MG PO QAM for 30 Days, #30 TAB Prov:ALYSSA ANAND MD 10/09/23 Atorvastatin Calcium (ATORVASTATIN CALCIUM) 40 Mg Tab, 1 TAB PO HS, #30 TAB 0 Refills Prov:ALYSSA ANAND MD 10/09/23 Aspirin (Aspirin Low Dose) 81 Mg Tab, 81 MG PO DAILY for 30 Days, #30 TAB Prov:ALYSSA ANAND MD 10/09/23 Metformin Hydrochloride (Metformin Hcl) 1,000 Mg Tab, 1000 MG PO DAILY for 30 Days, #30 TAB Prov:ALYSSA ANAND MD 10/09/23 Albuterol Sulfate (VENTOLIN MDI) 90 Mcg Ih, 90 MCG IN TID for 30 Days, #30 INH Prov:ALYSSA ANAND MD 10/09/23 Tamsulosin Hcl (Tamsulosin Hcl) 0.4 Mg Cap, 0.4 MG PO QPM for 30 Days, #90 MG Prov:ALYSSA ANAND MD 10/09/23 Losartan Potassium (Losartan Potassium) 100 Mg Tab, 100 MG PO DAILY for 30 Days, #90 MG Prov:ALYSSA ANAND MD 10/09/23 Information Source: Patient, Spouse Mode of Arrival: Ambulatory Timing: Weeks Duration: Since onset Prehospital treatment: None Quality: Sharp Severity: Moderate Recent: None Recent Hx of: None Pain Location: Diffuse Modifying Factors: Nothing Associated sign and symptoms: Nausea, Vomiting, Constipation, Abdominal Pain Past Medical History PAST MEDICAL HISTORY: Anxiety, Asthma, DM, High Lipids, HTN Surgical History: Cholecystectomy Family History Family History: Family hx of heart olivia Social History Smoker: Non-Smoker Alcohol: Denies ETOH Use Drugs: Denies Drug Use Lives In: Home Constitutional: denies: chills, diaphoresis, fatigue, fever, malaise, sweats, weakness, others EENTM: denies: blurred vision, double vision, ear bleeding, ear discharge, ear drainage, ear pain, ear ringing, eye pain, eye redness, hearing loss, mouth pain, mouth swelling, nasal discharge, nose bleeding, nose congestion, nose pain, photophobia, tearing, throat pain, throat swelling, voice changes, others Respiratory: denies: cough, hemoptysis, orthopnea, SOB at rest, shortness of breath, SOB with excertion, stridor, wheezing, others Cardiovascular: denies: chest pain, dizzy spells, diaphoresis, Dyspnea on exertion, edema, irregular heart beat, left arm pain, lightheadedness, palpitations, PND, syncope, others Gastrointestinal: reports: abdominal pain, constipated, nausea, poor appetite, vomiting; denies: abdomen distended, blood streaked bowels, diarrhea, dysphagia, difficulty swallowing, hematemesis, melena, poor fluid intake, rectal bleeding, rectal pain, others Genitourinary: denies: burning, dysuria, flank pain, frequency, hematuria, incontinence, penile discharge, penile sore, pain, testicle pain, testicle swelling, urgency, others Neurological: denies: dizziness, fainting, headache, left sided numbness, left sided weakness, numbness, paresthesia, pre-existing deficit, right sided numbness, right sided weakness, seizure, speech problems, tingling, tremors, weakness, others Musculoskeletal: reports: back pain; denies: gout, joint pain, joint swelling, muscle pain, muscle stiffness, neck pain, others Integumetry: denies: bruises, change in color, change in hair/nails, dryness, laceration, lesions, lumps, rash, wounds, others Allergic/Immunocompromised: denies: Difficulty Healing, Frequent Infections, Hives, Itching, others Hematologic/Lymphatic: denies: anemia, blood clots, easy bleeding, easy bruising, swollen glands, others Endocrine: denies: excessive hunger, excessive sweating, excessive thirst, excessive urination, flushing, intolerance to cold, intolerance to heat, unexplained weight gain, unexplained weight loss, others Psychiatric: denies: anxiety, bipolar disorder, depression, hopeless, panic disorder, schizophrenia, sleepless, suicidal, others All Other Systems: Reviewed and Negative Physical Exam General Appearance: Moderate Distress HEENT: Normal ENT Inspection, Pharynx Normal, TMs Normal Neck: Full Range of Motion, Non-Tender, Normal, Normal Inspection Respiratory: Chest Non-Tender, Lungs Clear, No Accessory Muscle Use, No Respiratory Distress, Normal Breath Sounds Cardiovascular: No Edema, No JVD, No Murmur, No Gallop, Normal Peripheral Pulses, Regular Rate/Rhythm Breast Exam: Deferred Gastrointestinal: Distended, LLQ, No Organomegaly, No Pulsatile Mass, Normal Bowel Sounds, RLQ, Tenderness Genitalia: Deferred Pelvic: Deferred Rectal: Deferred Extremities: No calf tenderness, Normal capillary refill, Normal inspection, Normal range of motion, Non-tender, No pedal edema Musculoskeletal : Apperance: Normal Neurologic: Alert, steam conditioner filling II-XII nml as Tested, No Motor Deficits, Normal Affect, Normal Mood, No Sensory Deficits Cerebellar Function: Normal Reflexes: Normal Skin: Dry, Normal Color, Warm Lymphatic: No Adenopathy Was a procedure done? Was a procedure done?: No GI differential Dx Differential Diagnosis: Appendicitis, Gastritis/PUD, Gastroenteritis, Pancreatitis, UTI, Electrolyte Imbalance, Food Poisoning X-Ray, Labs, Meds, VS Vital Signs Date Time Temp Pulse Resp B/P (MAP) Pulse Ox O2 Delivery O2 Flow Rate FiO2 02/23/25 14:40 98.0 68 15 198/104 97 98.0 Lab Test 02/23/25 15:38 Range/Units White Blood Count 7.7 4.4-10.8 10^3/uL Red Blood Count 4.88 4.5-5.90 10^6/uL Hemoglobin 16.0 13.5-17.5 g/dL Hematocrit 45.5 41.0-53.0 % Mean Corpuscular Volume 93.3 80.0-100.0 fL Mean Corpuscular Hemoglobin 32.8 H 28.0-32.0 pg Mean Corpuscular Hemoglobin Concent 35.1 32.0-36.0 g/dL Red Cell Distribution Width 13.3 11.8-14.3 % Platelet Count 198 140-450 10^3/uL Mean Platelet Volume 10.0 6.9-10.8 fL Neutrophils (%) (Auto) 49.1 37.0-80.0 % Lymphocytes (%) (Auto) 39.0 10.0-50.0 % Monocytes (%) (Auto) 6.8 0.0-12.0 % Eosinophils (%) (Auto) 4.4 0.0-7.0 % Basophils (%) (Auto) 0.7 0.0-2.0 % Neutrophils # (Auto) 3.8 1.6-8.6 10 ^3/uL Lymphocytes # (Auto) 3.0 0.4-5.4 10 ^3/uL Monocytes # (Auto) 0.5 0-1.3 10 ^3/uL Eosinophils # (Auto) 0.3 0-0.8 10 ^3/uL Basophils # (Auto) 0.1 0-0.2 10 ^3/uL Nucleated Red Blood Cells 0.1 % Sodium Level 140 136-145 mmol/L Potassium Level 4.1 3.5-5.1 mmol/L Chloride Level 103 98-107 mmol/L Carbon Dioxide Level 29 20-31 mmol/L Anion Gap 8 5-15 Blood Urea Nitrogen 7 L 9-23 mg/dL Creatinine 0.81 0.700-1.30 mg/dL Glomerular Filtration Rate Calc 97 >90 mL/min BUN/Creatinine Ratio 8.6 L 10.0-20.0 Serum Glucose 188 H 74-106 mg/dL Calcium Level 9.2 8.7-10.4 mg/dL Total Bilirubin 0.7 0.2-1.0 mg/dL Aspartate Amino Transferase (AST) 23 13-40 U/L Alanine Aminotransferase (ALT) 54 H 7-40 U/L Alkaline Phosphatase 81 46-116 U/L Total Protein 7.5 5.7-8.2 g/dL Albumin 4.4 3.2-4.8 g/dL Lipase 39 12-53 U/L IMPRESSION: Prominent/dilated appendix measuring up to 11 mm. No significant wall thickening or surrounding inflammatory changes are noted. While this could be within normal limits for the patient, given the dilatation, early acute appendicitis is not completely excluded. Recommend clinical correlation. Hep-Lock was established. The patient is being given normal saline as a bolus The patient was given Zosyn IV piggyback The lipase is within normal limits The chemistry panel in the CBC is within normal limits At this time, the patient is being admitted to the hospitalist Images Reviewed?: Images reviewed and evaluated by me Time of 1ST Reevaluation: 15:35 Reevaluation 1ST: Unchanged Patient Education/Counseling: Diagnosis, Treatment, Prognosis Family Education/Counseling: Diagnosis, Treatment, Prognosis SEPSIS Sepsis Screen Date sepsis recognized/suspect: Feb 23, 2025 Time Sepsis recognized/suspect: 1443 Recent Procedure: No On Antibiotic Therapy: No Respiratory Rate >20: No Heart Rate >90: No Temp<36 C (96.8 F) or >38.3 C: No SBP <90 or MAP <65 mmHG: No New Acute Mental Status Change: No Is the patient on CPAP, BIPAP,: No Physician Orders Urinalysis (02/23/25 15:14) Ct Ab Pel Wo Con-No Oral Or Iv (02/23/25 15:14) Heplock Iv (02/23/25 15:14) Piperacillin-Tazob 3.375gm (Zosyn 3.375g (02/23/25 17:00) Vital Signs Date Time Temp Pulse Resp B/P (MAP) Pulse Ox O2 Delivery O2 Flow Rate FiO2 02/23/25 14:40 98.0 68 15 198/104 97 98.0 Laboratory Tests Test 02/23/25 15:38 White Blood Count 7.7 10^3/uL (4.4-10.8) Departure 1 Departure Time of Disposition: 17:06 Impression: Primary Impression: Intractable abdominal pain Additional Impression: Acute appendicitis Qualified Codes: K35.30 - Acute appendicitis with localized peritonitis, without perforation or gangrene Disposition: ADMITTED INPATIENT Admit to: Med Surg Condition: Fair Critical Care Note Critical Care Time?: No Stability Stability form required: Yes Unstable for transfer: ED Physician Assesment (Clinical assesment) Heart Score Heart Score: Heart Score Response (Comments) Value History N/A 0 EKG N/A 0 Age N/A 0 Risk Factors N/A 0 Troponin N/A 0 Total 0 I personally scribed for DARLENE HILL MD ([email or web address]) on 02/23/25 at 15:15. Electronically submitted by Maddie Carter ([email or web address]). I personally scribed for DARLENE HILL MD ([email or web address]) on 02/23/25 at 16:53. Electronically submitted by Mdadie Carter ([email or web address]). DARLENE HILL MD Feb 23, 2025 15:15
[2025-02-23 15:59] LABS: Hematocrit 45.5 % (41.0-53.0); Hemoglobin 16.0 g/dL (13.5-17.5); Mean Corpuscular Hemoglobin 32.8 pg (28.0-32.0); Mean Corpuscular Volume 93.3 fL (80.0-100.0); Nucleated Red Blood Cells % 0.1 %
[2025-02-23 16:04] LABS: Albumin 4.4 g/dL (3.2-4.8); Alkaline Phosphatase 81 U/L (46-116); Anion Gap 8 (5-15); BUN/Creatinine Ratio 8.6 (10.0-20.0); Bilirubin, Total 0.7 mg/dL (0.2-1.0); Calcium 9.2 mg/dL (8.7-10.4); Carbon Dioxide 29 mmol/L (20-31); Chloride 103 mmol/L (98-107); Lipase 39 U/L (12-53); Potassium 4.1 mmol/L (3.5-5.1); Sodium 140 mmol/L (136-145); Total Protein 7.5 g/dL (5.7-8.2)
[2025-02-23 16:06] LABS: Alanine Aminotransferase 54 U/L (7-40); Blood Urea Nitrogen 7 mg/dL (9-23); Glucose 188 mg/dL (74-106)
--- NOTE | 2025-02-23 16:37 | DVH ---
EXAM: CT CT AB PEL WO CON-NO ORAL OR IV HISTORY: pain Comparison Study: None Exam Date: 02/23/2025 03:59 PM Radiation Dose Information: CT Dose: CTDI volume is 6.49 mGy. Dose-length product is 345.7 mGy*cm TECHNIQUE: Multidetector CT of the abdomen and pelvis was performed. Imaging was performed without IV contrast. Axial, coronal and sagittal multiplanar reformats were obtained from the axial data set by the technologist. FINDINGS: Lack of intravenous contrast compromises evaluation of perfusion and for isodense lesions. Lower chest: Bibasilar atelectasis/scarring. Liver: Unremarkable Biliary system: Surgically absent gallbladder Spleen: Unremarkable Pancreas: Unremarkable. Adrenals: Unremarkable. Kidneys and ureters: No hydronephrosis Bowel: No obstruction. Prominent/dilated appendix measuring up to 11 mm. No significant wall thickening or surrounding inflammatory changes are noted. Bladder: Unremarkable Reproductive organs: Prostatomegaly. Lymph nodes: Unremarkable. Peritoneum: Unremarkable Vessels: Patency not evaluated on this noncontrast study. Bones and soft tissue: No aggressive osseous lesion. Grade 1 anterolisthesis of L5 on S1 with bilateral pars defect. IMPRESSION: Prominent/dilated appendix measuring up to 11 mm. No significant wall thickening or surrounding inflammatory changes are noted. While this could be within normal limits for the patient, given the dilatation, early acute appendicitis is not completely excluded. Recommend clinical correlation.
[2025-02-23] MEDS ORDERED: PIPERACILLIN-TAZOB 3.375GM 100 ML IV ONE (17:00)
[2025-02-23] MEDS ORDERED: DEXTROSE (50%) 50ML SYRG IV PRN (19:15)
[2025-02-23] MEDS ORDERED: ONDANSETRON HCL 4 MG/2 ML VIAL IV PRN (19:15)
[2025-02-23] MEDS: SODIUM CHLORIDE 0.9% 1,000 ML IV ONE (19:15)
[2025-02-23] MEDS: PANTOPRAZOLE 40 MG/10 ML VIAL INJ IV ONE (19:15)
[2025-02-23 19:43] LABS: INR 1.0 (0.9-1.15); Partial Thromboplastin Time 27.3 SEC (24.5-34.5); Prothrombin Time 10.6 sec (9.3-11.8)
--- NOTE | 2025-02-23 20:10 | DVH ---
CHEST RADIOGRAPH INDICATION: preop TECHNIQUE: Single frontal view of the chest was obtained COMPARISON: XY CHEST PORTABLE on DOS: 01/08/24, XY CHEST PORTABLE on DOS: 10/08/23, CHEST XRAY 1 VIEW on DOS: 10/23/19 FINDINGS: Lines and Tubes: None Lungs: No focal consolidation. Pleura: No effusion. No pneumothorax. Cardiomediastinal contours: Unremarkable Bones: No acute osseous abnormality. IMPRESSION: 1. No acute cardiopulmonary disease.
[2025-02-23] MEDS: PIPERACILLIN-TAZOB 3.375GM 100 ML IV ONE (20:15)
[2025-02-23 20:23] LABS: Urine Protein, UAD Negative (Negative)
[2025-02-24] VITALS (8 sets, daily range): BP systolic 140–157; BP diastolic 72–93; PULSE 68–85; RESP 16–20; TEMP 97.5–98.8; O2SAT 95–97
--- NOTE | 2025-02-24 00:45 | DVHHP2 ---
History of Present Illness Reason for Visit: Abdominal pain History of Present Illness 69-year-old male presents for evaluation of abdominal pain. Patient reports onset of pain two weeks ago. He states over the past two days the pain has been diffuse more constant with associated nausea and vomiting. No fever or chills. No other acute complaints. Past Medical History Diabetes mellitus, hypertension, dyslipidemia, asthma Past Surgical History Cholecystectomy Family History Heart disease Smoke: No ALCOHOL: none Drugs: None Lives: with Family Review of Systems Review of Systems Review of systems are currently negative otherwise addressed in HPI. Allergies: Coded Allergies: NO KNOWN ALLERGIES (Unverified , 05/18/12) Medications Current Medications Medications Dose Ordered Sig/Lauren Route Start Time Stop Time Status Last Admin Dose Admin Piperacillin Sod/ Tazobactam Sod 100 ml @ 25 mls/hr Q8HR IV 02/24/25 06:00 Pantoprazole Sodium 40 mg DAILY IV 02/24/25 10:00 Diagnostic Test (Pha) 1 strip Q6HR 02/24/25 00:00 Insulin Human Regular Q6HR SC 02/24/25 00:00 Dextrose 50 ml UD PRN IV 02/23/25 19:15 Ondansetron HCl 4 mg Q4HP PRN IV 02/23/25 19:15 Morphine Sulfate 2 mg Q4HPRN PRN IV 02/23/25 19:15 Exam Vital Signs Vital Signs Date Time Temp Pulse Resp B/P (MAP) Pulse Ox O2 Delivery O2 Flow Rate FiO2 02/23/25 14:40 98.0 68 15 198/104 97 98.0 Exam Gen: 69-year-old male in mild distress Skin: Warm, dry, normal color and texture, no rash. HEENT: Normocephalic atraumatic, mucous membranes moist and pink. Neck: Cervical and supraclavicular nodes normal without enlargement, trachea is midline, thyroid gland is normal without masses. Pulmonary: Clear to auscultation and percussion bilaterally. Cardiac: Regular rate and rhythm. No murmur Abdomen: Soft, diffuse tenderness, nondistended, bowel sounds present all 4 quadrants, no guarding, no rigidity, no organomegaly. Extremities: No cyanosis, clubbing, no edema Neuro: Cranial nerves II through XII grossly intact, normal affect and speech, no focal motor deficits. Labs/Xrays ORDERING PHYSICIAN: EMILIA GORDON PROCEDURE(s): CXR1 - CHEST XRAY 1 VIEW REASON: preop ORDER NUMBER(s): [id number], ACCESSION NUMBER(s): [id number] CHEST RADIOGRAPH INDICATION: preop TECHNIQUE: Single frontal view of the chest was obtained COMPARISON: XY CHEST PORTABLE on DOS: 01/08/24, XY CHEST PORTABLE on DOS: 10/08/23, CHEST XRAY 1 VIEW on DOS: 10/23/19 FINDINGS: Lines and Tubes: None Lungs: No focal consolidation. Pleura: No effusion. No pneumothorax. Cardiomediastinal contours: Unremarkable Bones: No acute osseous abnormality. IMPRESSION: 1. No acute cardiopulmonary disease. RING PHYSICIAN: DARLENE HILL MD PROCEDURE(s): ABPL - CT AB PEL WO CON-NO ORAL OR IV REASON: pain ORDER NUMBER(s): [id number], ACCESSION NUMBER(s): [id number] EXAM: CT CT AB PEL WO CON-NO ORAL OR IV HISTORY: pain Comparison Study: None Exam Date: 02/23/2025 03:59 PM Radiation Dose Information: CT Dose: CTDI volume is 6.49 mGy. Dose-length product is 345.7 mGy*cm TECHNIQUE: Multidetector CT of the abdomen and pelvis was performed. Imaging was performed without IV contrast. Axial, coronal and sagittal multiplanar reformats were obtained from the axial data set by the technologist. FINDINGS: Lack of intravenous contrast compromises evaluation of perfusion and for isodense lesions. Lower chest: Bibasilar atelectasis/scarring. Liver: Unremarkable Biliary system: Surgically absent gallbladder Spleen: Unremarkable Pancreas: Unremarkable. Adrenals: Unremarkable. Kidneys and ureters: No hydronephrosis Bowel: No obstruction. Prominent/dilated appendix measuring up to 11 mm. No significant wall thickening or surrounding inflammatory changes are noted. Bladder: Unremarkable Reproductive organs: Prostatomegaly. Lymph nodes: Unremarkable. Peritoneum: Unremarkable Vessels: Patency not evaluated on this noncontrast study. Bones and soft tissue: No aggressive osseous lesion. Grade 1 anterolisthesis of L5 on S1 with bilateral pars defect. IMPRESSION: Prominent/dilated appendix measuring up to 11 mm. No significant wall thickening or surrounding inflammatory changes are noted. While this could be within normal limits for the patient, given the dilatation, early acute appendicitis is not completely excluded. Recommend clinical correlation. Labs Test 02/23/25 20:03 02/23/25 15:38 Range/Units Urine Color Light-yellow Yellow Urine Clarity Clear Clear Urine pH 5.5 5.0-9.0 Urine Specific [place] 1.011 1.001-1.035 Urine Protein Negative Negative Urine Ketones Negative Negative Urine Blood Negative Negative /uL Urine Nitrite Negative Negative Urine Bilirubin Negative Negative Urine Urobilinogen Normal Negative mg/dL Urine Leukocyte Esterase Negative Negative /uL Urine RBC 1 0 - 3 /hpf Urine Microscopic WBC < 1 0-3 /HPF Urine Squamous Epithelial Cells None seen <5 /hpf Urine Bacteria None seen None Seen /hpf Urine Mucus Few None Seen Urine Glucose Normal Normal mg/dL White Blood Count 7.7 4.4-10.8 10^3/uL Red Blood Count 4.88 4.5-5.90 10^6/uL Hemoglobin 16.0 13.5-17.5 g/dL Hematocrit 45.5 41.0-53.0 % Mean Corpuscular Volume 93.3 80.0-100.0 fL Mean Corpuscular Hemoglobin 32.8 H 28.0-32.0 pg Mean Corpuscular Hemoglobin Concent 35.1 32.0-36.0 g/dL Red Cell Distribution Width 13.3 11.8-14.3 % Platelet Count 198 140-450 10^3/uL Mean Platelet Volume 10.0 6.9-10.8 fL Neutrophils (%) (Auto) 49.1 37.0-80.0 % Lymphocytes (%) (Auto) 39.0 10.0-50.0 % Monocytes (%) (Auto) 6.8 0.0-12.0 % Eosinophils (%) (Auto) 4.4 0.0-7.0 % Basophils (%) (Auto) 0.7 0.0-2.0 % Neutrophils # (Auto) 3.8 1.6-8.6 10 ^3/uL Lymphocytes # (Auto) 3.0 0.4-5.4 10 ^3/uL Monocytes # (Auto) 0.5 0-1.3 10 ^3/uL Eosinophils # (Auto) 0.3 0-0.8 10 ^3/uL Basophils # (Auto) 0.1 0-0.2 10 ^3/uL Nucleated Red Blood Cells 0.1 % Prothrombin Time 10.6 9.3-11.8 sec Prothrombin Time INR 1.00 0.9-1.15 Activated Partial Thromboplast Time 27.3 24.5-34.5 SEC Sodium Level 140 136-145 mmol/L Potassium Level 4.1 3.5-5.1 mmol/L Chloride Level 103 98-107 mmol/L Carbon Dioxide Level 29 20-31 mmol/L Anion Gap 8 5-15 Blood Urea Nitrogen 7 L 9-23 mg/dL Creatinine 0.81 0.700-1.30 mg/dL Glomerular Filtration Rate Calc 97 >90 mL/min BUN/Creatinine Ratio 8.6 L 10.0-20.0 Serum Glucose 188 H 74-106 mg/dL Calcium Level 9.2 8.7-10.4 mg/dL Total Bilirubin 0.7 0.2-1.0 mg/dL Aspartate Amino Transferase (AST) 23 13-40 U/L Alanine Aminotransferase (ALT) 54 H 7-40 U/L Alkaline Phosphatase 81 46-116 U/L Total Protein 7.5 5.7-8.2 g/dL Albumin 4.4 3.2-4.8 g/dL Lipase 39 12-53 U/L SEPSIS Sepsis Screen Date sepsis recognized/suspect: Feb 23, 2025 Time Sepsis recognized/suspect: 1443 Recent Procedure: No On Antibiotic Therapy: No Respiratory Rate >20: No Heart Rate >90: No Temp<36 C (96.8 F) or >38.3 C: No SBP <90 or MAP <65 mmHG: No New Acute Mental Status Change: No Is the patient on CPAP, BIPAP,: No Physician Orders * Surgical Consult (02/23/25 ) Admit (02/23/25 19:08) Sodium Chloride 0.9% (02/23/25 19:15) Pantoprazole (Protonix) (02/24/25 10:00) Chest Xray 1 View (02/23/25 19:12) Glucose Blood (Accu-Chek Comfort Curve T (02/24/25 00:00) Insulin R (Human) (Insulin R) (02/24/25 00:00) Dextrose 50% Syringe (02/23/25 19:15) Ondansetron Hcl (Zofran) (02/23/25 19:15) Complete Blood Count (02/24/25 04:00) Npo (Nothing By Mouth) Diet (02/24/25 Breakfast) Condition: Stable (02/23/25 19:12) Bedrest With Bathroom Privileg (02/23/25 19:12) Basic Metabolic Panel (02/24/25 04:00) Morphine Sulfate Injection (02/23/25 19:15) Piperacillin-Tazob 3.375gm (Zosyn 3.375g (02/24/25 06:00) Laboratory Tests Test 02/23/25 15:38 White Blood Count 7.7 10^3/uL (4.4-10.8) Assessment/Plan Assessment/Plan Assessment Acute abdominal pain Rule out acute appendicitis Plan Admit the patient to [facility] to the hospitalist Surgical consult Zosyn NPO Pain management Maintenance IV fluids Continue treatment per orders Plan discussed with: Patient My Orders Orders - EMILIA GORDON Procedure Category Date Status Time Admit ADMIT 02/23/25 Transmitted 19:08 Sodium Chloride 0.9% PHA 02/23/25 In Process 19:15 Pantoprazole PHA 02/24/25 In Process (Protonix) 10:00 Chest Xray 1 View XY 02/23/25 Resulted 19:12 Glucose Blood PHA 02/24/25 In Process (Accu-Chek Comfort 00:00 Insulin R (Human) PHA 02/24/25 In Process (Insulin R) 00:00 Dextrose 50% Syringe PHA 02/23/25 In Process 19:15 Ondansetron Hcl PHA 02/23/25 In Process (Zofran) 19:15 Complete Blood Count LAB 02/24/25 Logged 04:00 Npo (Nothing By DIET 02/24/25 Transmitted Mouth) Diet Breakfast Condition: Stable FLOR 02/23/25 In Process 19:12 Bedrest With Bathroom FLOR 02/23/25 In Process Privileg 19:12 Basic Metabolic Panel LAB 02/24/25 Logged 04:00 Morphine Sulfate PHA 02/23/25 In Process Injection 19:15 Piperacillin-Tazob PHA 02/24/25 In Process 3.375gm (Zosyn 3.375g 06:00 Date of Service: Feb 23, 2025 Billing Provider: EMILIA GORDON Common Visit Codes: [id number] INP/OBS CARE (HIGH) EMILIA GORDON Feb 24, 2025 00:45
[2025-02-24] MEDS: ACCU-CHEK COMFORT CURVE STRIP VI SCH (02:03)
[2025-02-24] MEDS: InsuLIN REG 1unit/0.01ml Soln (100units/ml) SC SCH (02:25)
[2025-02-24] MEDS: PIPERACILLIN-TAZOB 3.375GM 100 ML IV SCH (06:58)
[2025-02-24 07:08] LABS: Chloride 103 mmol/L (98-107); Potassium 3.9 mmol/L (3.5-5.1); Sodium 142 mmol/L (136-145)
[2025-02-24 07:09] LABS: Anion Gap 8 (5-15); Calcium 9.2 mg/dL (8.7-10.4); Carbon Dioxide 31 mmol/L (20-31)
[2025-02-24 07:11] LABS: Hematocrit 44.8 % (41.0-53.0); Hemoglobin 15.9 g/dL (13.5-17.5); Mean Corpuscular Hemoglobin 32.9 pg (28.0-32.0); Mean Corpuscular Volume 92.8 fL (80.0-100.0); Nucleated Red Blood Cells % 0.1 %
[2025-02-24 07:14] LABS: BUN/Creatinine Ratio 13.0 (10.0-20.0); Blood Urea Nitrogen 10 mg/dL (9-23)
[2025-02-24 07:15] LABS: Glucose 141 mg/dL (74-106)
[2025-02-24] MEDS: PANTOPRAZOLE 40 MG/10 ML VIAL INJ IV SCH (09:17)
--- NOTE | 2025-02-24 11:53 | DVHINCON2 ---
Date of service: Feb 24, 2025 Family History: Cardiac disorder Mother Allergies: Coded Allergies: NO KNOWN ALLERGIES (Unverified , 05/18/12) Home Meds Active Scripts Guaifenesin (Mucinex) 600 Mg Tab, 1 TAB PO BID for 7 Days, #14 TAB 0 Refills Prov:CHRISTEL JAMESON DATA PROCESSING OPERATOR 02/02/24 Promethazine-Dm (Promethazine Dm 6.25-15 mg/5Ml) 1 Bushra Bushra, 5 ML PO TIDPRN PRN for 10 Days, #150 ML 0 Refills Prov:CHRISTEL JAMESON DATA PROCESSING OPERATOR 02/02/24 Amoxicillin & Pot Clavulanate (AUGMENTIN TABLET) 875 Mg Tb, 875 MG PO BID, #14 TAB Prov:MARJ MABRY MD 01/11/24 Insulin NPH Isophane & Reg (Hu (Novolin 70/30 (70-30) 100 Unit/ml) 1 Inj Inj, 20 INJ SC BIDWM for 30 Days, #30 INJ 1 Refill Prov:ALYSSA ANAND MD 10/09/23 Hctz (Hydrochlorothiazide) 25 Mg Tab, 12.5 MG PO DAILY for 30 Days, #30 TAB Prov:ALYSSA ANAND MD 10/09/23 Empagliflozin (Jardiance) 25 Mg Tab, 25 MG PO QAM for 30 Days, #30 TAB Prov:ALYSSA ANAND MD 10/09/23 Atorvastatin Calcium (ATORVASTATIN CALCIUM) 40 Mg Tab, 1 TAB PO HS, #30 TAB 0 Refills Prov:ALYSSA ANAND MD 10/09/23 Aspirin (Aspirin Low Dose) 81 Mg Tab, 81 MG PO DAILY for 30 Days, #30 TAB Prov:ALYSSA ANAND MD 10/09/23 Metformin Hydrochloride (Metformin Hcl) 1,000 Mg Tab, 1000 MG PO DAILY for 30 Days, #30 TAB Prov:ALYSSA ANAND MD 10/09/23 Albuterol Sulfate (VENTOLIN MDI) 90 Mcg Ih, 90 MCG IN TID for 30 Days, #30 INH Prov:ALYSSA ANAND MD 10/09/23 Tamsulosin Hcl (Tamsulosin Hcl) 0.4 Mg Cap, 0.4 MG PO QPM for 30 Days, #90 MG Prov:ALYSSA ANAND MD 10/09/23 Losartan Potassium (Losartan Potassium) 100 Mg Tab, 100 MG PO DAILY for 30 Days, #90 MG Prov:ALYSSA ANAND MD 10/09/23 Current Medications Current Medications Medications (Trade) Dose Ordered Sig/Lauren Route PRN Reason Start Time Stop Time Status Last Admin Piperacillin Sod/ Tazobactam Sod 100 ml @ 25 mls/hr Q8HR IV 02/24/25 06:00 02/24/25 06:58 Pantoprazole Sodium (Protonix) 40 mg DAILY IV 02/24/25 10:00 02/24/25 09:17 Diagnostic Test (Pha) (Accu-Chek Comfort Curve T) 1 strip Q6HR 02/24/25 00:00 02/24/25 06:00 Insulin Human Regular (InsuLIN R) Q6HR SC 02/24/25 00:00 02/24/25 07:00 Dextrose 50 ml UD PRN IV Blood Sugar LESS THAN 60 02/23/25 19:15 Ondansetron HCl (Zofran) 4 mg Q4HP PRN IV NAUSEA / VOMITING 02/23/25 19:15 Morphine Sulfate 2 mg Q4HPRN PRN IV SEVERE PAIN (7-10 PAIN SCALE) 02/23/25 19:15 Vital Signs Vital Signs Date Time Temp Pulse Resp B/P (MAP) Pulse Ox O2 Delivery O2 Flow Rate FiO2 02/24/25 08:40 97.5 68 16 142/81 (101) 97 97.5 02/24/25 04:06 Room Air* 0 21 Labs/Diagnostic Data Labs Test 02/24/25 06:25 02/24/25 06:04 02/23/25 20:03 02/23/25 15:38 Range/Units POC Glucose 163 H 70-106 mg/dl White Blood Count 8.7 4.4-10.8 10^3/uL Red Blood Count 4.82 4.5-5.90 10^6/uL Hemoglobin 15.9 13.5-17.5 g/dL Hematocrit 44.8 41.0-53.0 % Mean Corpuscular Volume 92.8 80.0-100.0 fL Mean Corpuscular Hemoglobin 32.9 H 28.0-32.0 pg Mean Corpuscular Hemoglobin Concent 35.5 32.0-36.0 g/dL Red Cell Distribution Width 13.4 11.8-14.3 % Platelet Count 192 140-450 10^3/uL Mean Platelet Volume 10.0 6.9-10.8 fL Neutrophils (%) (Auto) 41.9 37.0-80.0 % Lymphocytes (%) (Auto) 43.7 10.0-50.0 % Monocytes (%) (Auto) 7.7 0.0-12.0 % Eosinophils (%) (Auto) 6.2 0.0-7.0 % Basophils (%) (Auto) 0.5 0.0-2.0 % Neutrophils # (Auto) 3.7 1.6-8.6 10 ^3/uL Lymphocytes # (Auto) 3.8 0.4-5.4 10 ^3/uL Monocytes # (Auto) 0.7 0-1.3 10 ^3/uL Eosinophils # (Auto) 0.5 0-0.8 10 ^3/uL Basophils # (Auto) 0 0-0.2 10 ^3/uL Nucleated Red Blood Cells 0.1 % Sodium Level 142 136-145 mmol/L Potassium Level 3.9 3.5-5.1 mmol/L Chloride Level 103 98-107 mmol/L Carbon Dioxide Level 31 20-31 mmol/L Anion Gap 8 5-15 Blood Urea Nitrogen 10 9-23 mg/dL Creatinine 0.77 0.700-1.30 mg/dL Glomerular Filtration Rate Calc 98 >90 mL/min BUN/Creatinine Ratio 13.0 10.0-20.0 Serum Glucose 141 H 74-106 mg/dL Calcium Level 9.2 8.7-10.4 mg/dL Urine Color Light-yellow Yellow Urine Clarity Clear Clear Urine pH 5.5 5.0-9.0 Urine Specific [place] 1.011 1.001-1.035 Urine Protein Negative Negative Urine Ketones Negative Negative Urine Blood Negative Negative /uL Urine Nitrite Negative Negative Urine Bilirubin Negative Negative Urine Urobilinogen Normal Negative mg/dL Urine Leukocyte Esterase Negative Negative /uL Urine RBC 1 0 - 3 /hpf Urine Microscopic WBC < 1 0-3 /HPF Urine Squamous Epithelial Cells None seen <5 /hpf Urine Bacteria None seen None Seen /hpf Urine Mucus Few None Seen Urine Glucose Normal Normal mg/dL Prothrombin Time 10.6 9.3-11.8 sec Prothrombin Time INR 1.00 0.9-1.15 Activated Partial Thromboplast Time 27.3 24.5-34.5 SEC Total Bilirubin 0.7 0.2-1.0 mg/dL Aspartate Amino Transferase (AST) 23 13-40 U/L Alanine Aminotransferase (ALT) 54 H 7-40 U/L Alkaline Phosphatase 81 46-116 U/L Total Protein 7.5 5.7-8.2 g/dL Albumin 4.4 3.2-4.8 g/dL Lipase 39 12-53 U/L Assessment 69 y/o male with two week history of abdominal pain,pain on passage of flatus and difficult bowel movements, also accompanied by nausea vomiting and epistaxis after bouts of vomiting. Despite of two weeks history his white count is normal. and has normal neutrophil count, this is not entirely consistent with the presumptive diagnosis of possible appendicitis. his abdomen is distended and with guarding in all four quadrants, there is tendermness to palpation in right lower quadrant but no evidence of peritoneal irritation, I will request GI consult and repeat the CT scan with contrast. No indication for emergency surgical intervention.also his bladder is very distended will insert feliciano. Plan discussed with: Patient DEBRA VELAZCO MD Feb 24, 2025 11:53
--- NOTE | 2025-02-24 13:32 | DVHPN2 ---
Subjective having some mild pain Reviewed: H&P Changes from previous H/P or p: No Changes Objective Vitals Vital Signs Date Time Temp Pulse Resp B/P (MAP) Pulse Ox O2 Delivery O2 Flow Rate FiO2 02/24/25 13:00 97.6 72 16 155/86 (109) 96 97.6 02/24/25 08:00 Room Air* 0 21 Intake/Output Intake and Output 02/24/25 07:00 Intake Total 0 ml Balance 0 ml Intake Oral 0 ml # Voids 2 General Appearance: Alert, Oriented X3 HEENT: Atraumatic Cardiovascular: Regular rate, Normal S1, Normal S2 Abdomen: Normal bowel sounds Medications Current Medications Medications Dose Ordered Sig/Lauren Route Start Time Stop Time Status Last Admin Dose Admin Piperacillin Sod/ Tazobactam Sod 100 ml @ 25 mls/hr Q8HR IV 02/24/25 06:00 02/24/25 06:58 25 MLS/HR Pantoprazole Sodium 40 mg DAILY IV 02/24/25 10:00 02/24/25 09:17 40 MG Diagnostic Test (Pha) 1 strip Q6HR 02/24/25 00:00 02/24/25 12:39 1 STRIP Insulin Human Regular Q6HR SC 02/24/25 00:00 02/24/25 12:39 3 UNITS Dextrose 50 ml UD PRN IV 02/23/25 19:15 Ondansetron HCl 4 mg Q4HP PRN IV 02/23/25 19:15 Morphine Sulfate 2 mg Q4HPRN PRN IV 02/23/25 19:15 Laboratory Results Laboratory Tests 02/24/25 06:04 Chemistry Test 02/23/25 15:38 02/24/25 06:04 Albumin 4.4 g/dL (3.2-4.8) Calcium Level 9.2 mg/dL (8.7-10.4) 9.2 mg/dL (8.7-10.4) Total Protein 7.5 g/dL (5.7-8.2) Coagulation Test 02/23/25 15:38 Prothrombin Time 10.6 sec (9.3-11.8) Prothrombin Time INR 1.00 (0.9-1.15) Activated Partial Thromboplast Time 27.3 SEC (24.5-34.5) Lipid panel Test 02/23/25 15:38 Lipase 39 U/L (12-53) LFT Test 02/23/25 15:38 Alanine Aminotransferase (ALT) 54 U/L (7-40) H Alkaline Phosphatase 81 U/L (46-116) Aspartate Amino Transferase (AST) 23 U/L (13-40) Total Bilirubin 0.7 mg/dL (0.2-1.0) Urinalysis Test 02/23/25 20:03 Urine Color Light-yellow (Yellow) Urine Clarity Clear (Clear) Urine pH 5.5 (5.0-9.0) Urine Specific [place] 1.011 (1.001-1.035) Urine Protein Negative (Negative) Urine Ketones Negative (Negative) Urine Blood Negative /uL (Negative) Urine Nitrite Negative (Negative) Urine Bilirubin Negative (Negative) Urine Urobilinogen Normal mg/dL (Negative) Urine Leukocyte Esterase Negative /uL (Negative) Urine RBC 1 /hpf (0 - 3) Urine Microscopic WBC < 1 /HPF (0-3) Urine Squamous Epithelial Cells None seen /hpf (<5) Urine Bacteria None seen /hpf (None Seen) Urine Mucus Few (None Seen) Urine Glucose Normal mg/dL (Normal) Assessment/Plan Assessment/Plan Acute abdominal pain Rule out acute appendicitis Continue IV abx NPO Surgery consulted for possible appendicitis Plan discussed with: Patient Date of Service: Feb 24, 2025 Billing Provider: FELICITY DU MD Common Visit Codes: [id number] INP/OBS CARE(HIGH) FELICITY DU MD Feb 24, 2025 13:32
--- NOTE | 2025-02-24 14:57 | DVH ---
CLINICAL INFORMATION: Nausea,vomiting,pain,urinary retention. TECHNIQUE: Axial CT images of the abdomen and pelvis were obtained after the uneventful administration of 100 mL Omnipaque 300 IV contrast. The patient also ingested 1 L of oral Omnipaque contrast prior to the examination. Coronal and sagittal reformatted images were obtained, reviewed, and stored. All CT scans at this medical facility are performed using dose modulation techniques as appropriate to a performed exam including the following: Automated exposure control was utilized; adjustment of the MA and/or KV according to patient size; and use of iterative reconstruction technique. CTDIvol = 6.38 mGy DLP = 372.52 mGy-cm COMPARISON: None FINDINGS: Lung bases: Respiratory motion artifact limits evaluation. Ground-glass opacities in the lung bases, possibly infectious or inflammatory in nature. Liver: Hepatic steatosis. Biliary: Gallbladder appears to be surgically absent, although no surgical clips are seen. Common bile duct measures up to 8 mm in diameter, mildly dilated, although may be seen after cholecystectomy due to reservoir effect. Spleen: Unremarkable. Pancreas: Unremarkable. No inflammatory changes, ductal dilatation, or mass identified. Adrenal glands: Unremarkable. No mass. Kidneys: No hydronephrosis. Small bilateral renal cysts. Aorta/Vascular: No aneurysm or significant calcification. Lymph Nodes: No mass or lymphadenopathy. Bowel/mesentery: No small bowel obstruction. No free air or free fluid. Appendix is dilated up to 1.5 cm in diameter. No periappendiceal stranding or fluid is seen. There is contrast extending into the lumen of the appendix. Pelvic organs: Enlarged prostate with impression on the bladder base. Bladder: Day catheter extends into the bladder. Moderate circumferential thickening of the bladder wall. There is a small amount of gas within the bladder, likely due to Day catheter placement. Abdominal wall: No mass or hernia. Bones: No acute fracture or focal intraosseous lesion. Grade 1 anterolisthesis of L5 on S1 with chronic bilateral pars defects at L5. IMPRESSION: 1. Dilated appendix again noted, not significantly changed in size compared to the prior exam when measured at a similar location. There is no periappendiceal stranding, fluid, or other signs of inflammation to confirm acute appendicitis. There is contrast within the lumen of the appendix. Can not completely exclude appendicitis in the appropriate clinical setting given the abnormal diameter of the appendix. Correlate with clinical findings. 2. Hepatic steatosis. 3. Mildly dilated common bile duct, may be seen after cholecystectomy due to reservoir effect. 4. Ground-glass opacities in the lung bases. May be partly due to respiratory motion artifact. Can not exclude infectious or inflammatory etiology. Correlate with clinical findings. 5. Circumferential thickening of the bladder wall. Correlate clinically to exclude cystitis. 6. Additional nonacute findings as described above.
[2025-02-24] MEDS: OMNIPAQUE 12mg/ml 500ml ORAL SOLUTION PO ONE (15:42)
[2025-02-25] VITALS (9 sets, daily range): BP systolic 131–166; BP diastolic 40–100; PULSE 80–119; RESP 17–21; TEMP 36.6; O2SAT 93–95
[2025-02-25] MEDS ORDERED: INSUINJ37 SC (00:13)
[2025-02-25] MEDS ORDERED: PANT40TA2 PO (00:13)
[2025-02-25] MEDS ORDERED: SITA100T7 PO (00:13)
[2025-02-25] MEDS: MORPHINE SULFATE 4 MG/ML SYR/VIAL IV PRN (10:09)
--- NOTE | 2025-02-25 14:11 | DVHINCON2 ---
GI Consult Consult Note GI consult note Date of Consultation: 02/25/2025 Chief Complaint: Two week history of abdominal pain, nausea and vomiting Referring Physician: Dr. Gann H&P: 69-year-old Persian-speaking male, Agustina ARELLANO translating, admitted with complains of abdominal pain, which is generalized but mostly in the lower abdomen and has been worsening. Last bowel movement four days ago, patient usually has history of constipation. Denies melena or red blood in stool. Patient had one episode of red blood in stool about two months ago none since. Patient also complains of nausea and vomiting two days ago none now, and also had a nosebleed at that time. Patient admits to feeling feverish No EGD or colonoscopy in past Past Medical History: Diabetes mellitus, hypertension, dyslipidemia, asthma Past Surgical History: Cholecystectomy Social History: NO smoking, drinking ETOH and use of illegal drugs. Family History: Noncontributory Review of Systems: Constitutional: no fever, chill, weight loss HEENT: no eye pain, no hearing loss, no oral lesion, no scleral icterus Heart: no chest pain, no chest pressure Lung: no cough, no dyspnea with exertion Abdomen: see HPI Physical exam: General: NAD, AAOX3 Chest: lung cerrato clear to auscultation Heart: RRR, no murmur Abdomen: Minimal-distended,+ suprapubic tenderness to palpation, +BS Labs: Labs Test 02/25/25 13:24 02/24/25 06:04 02/23/25 20:03 02/23/25 15:38 Range/Units POC Glucose 144 H 70-106 mg/dl White Blood Count 8.7 4.4-10.8 10^3/uL Red Blood Count 4.82 4.5-5.90 10^6/uL Hemoglobin 15.9 13.5-17.5 g/dL Hematocrit 44.8 41.0-53.0 % Mean Corpuscular Volume 92.8 80.0-100.0 fL Mean Corpuscular Hemoglobin 32.9 H 28.0-32.0 pg Mean Corpuscular Hemoglobin Concent 35.5 32.0-36.0 g/dL Red Cell Distribution Width 13.4 11.8-14.3 % Platelet Count 192 140-450 10^3/uL Mean Platelet Volume 10.0 6.9-10.8 fL Neutrophils (%) (Auto) 41.9 37.0-80.0 % Lymphocytes (%) (Auto) 43.7 10.0-50.0 % Monocytes (%) (Auto) 7.7 0.0-12.0 % Eosinophils (%) (Auto) 6.2 0.0-7.0 % Basophils (%) (Auto) 0.5 0.0-2.0 % Neutrophils # (Auto) 3.7 1.6-8.6 10 ^3/uL Lymphocytes # (Auto) 3.8 0.4-5.4 10 ^3/uL Monocytes # (Auto) 0.7 0-1.3 10 ^3/uL Eosinophils # (Auto) 0.5 0-0.8 10 ^3/uL Basophils # (Auto) 0 0-0.2 10 ^3/uL Nucleated Red Blood Cells 0.1 % Sodium Level 142 136-145 mmol/L Potassium Level 3.9 3.5-5.1 mmol/L Chloride Level 103 98-107 mmol/L Carbon Dioxide Level 31 20-31 mmol/L Anion Gap 8 5-15 Blood Urea Nitrogen 10 9-23 mg/dL Creatinine 0.77 0.700-1.30 mg/dL Glomerular Filtration Rate Calc 98 >90 mL/min BUN/Creatinine Ratio 13.0 10.0-20.0 Serum Glucose 141 H 74-106 mg/dL Calcium Level 9.2 8.7-10.4 mg/dL Urine Color Light-yellow Yellow Urine Clarity Clear Clear Urine pH 5.5 5.0-9.0 Urine Specific [place] 1.011 1.001-1.035 Urine Protein Negative Negative Urine Ketones Negative Negative Urine Blood Negative Negative /uL Urine Nitrite Negative Negative Urine Bilirubin Negative Negative Urine Urobilinogen Normal Negative mg/dL Urine Leukocyte Esterase Negative Negative /uL Urine RBC 1 0 - 3 /hpf Urine Microscopic WBC < 1 0-3 /HPF Urine Squamous Epithelial Cells None seen <5 /hpf Urine Bacteria None seen None Seen /hpf Urine Mucus Few None Seen Urine Glucose Normal Normal mg/dL Prothrombin Time 10.6 9.3-11.8 sec Prothrombin Time INR 1.00 0.9-1.15 Activated Partial Thromboplast Time 27.3 24.5-34.5 SEC Total Bilirubin 0.7 0.2-1.0 mg/dL Aspartate Amino Transferase (AST) 23 13-40 U/L Alanine Aminotransferase (ALT) 54 H 7-40 U/L Alkaline Phosphatase 81 46-116 U/L Total Protein 7.5 5.7-8.2 g/dL Albumin 4.4 3.2-4.8 g/dL Lipase 39 12-53 U/L Imaging: CT abdomen pelvis IMPRESSION: Prominent/dilated appendix measuring up to 11 mm. No significant wall thick ening or surrounding inflammatory changes are noted. While this could be within normal limits for the patient, given the dilatation, early acute appendicitis is not completely excluded. Recommend clinical correlation. CT abdomen pelvis with p.o. and IV contrast IMPRESSION: 1. Dilated appendix again noted, not significantly changed in size compared to the prior exam when measured at a similar location. There is no periappendiceal stranding, fluid, or other signs of inflammation to confirm acute appendicitis. There is contrast within the lumen of the appendix. Can not completely exclude appendicitis in the appropriate clinical setting given the abnormal diameter of the appendix. Correlate with clinical findings. 2. Hepatic steatosis. 3. Mildly dilated common bile duct, may be seen after cholecystectomy due to reservoir effect. 4. Ground-glass opacities in the lung bases. May be partly due to respiratory motion artifact. Can not exclude infectious or inflammatory etiology. Correlate with clinical findings. 5. Circumferential thickening of the bladder wall. Correlate clinically to exclude cystitis. 6. Additional nonacute findings as described above. Assessment: Abdominal pain Cystitis Hepatic steatosis Plan: Discussed with Dr. Paiz Urine culture IV antibiotics Ice chips advance to clear liquid diet if tolerated Monitor labs We will continue to follow patient Plan discussed with patient and RN Thank you for this consult Date of Service: Feb 25, 2025 Billing Provider: AYO MITCHELL Common Visit Codes: CONSULT ONLY Consultation Codes: [id number] CONSULT <60MIN AYO MITCHELL Feb 25, 2025 14:11
[2025-02-25] MEDS ORDERED: DOCUSATE SOD 100 MG CAP PO PRN (14:15)
[2025-02-25] MEDS ORDERED: CIPR500T4 PO (15:27)
--- NOTE | 2025-02-25 19:45 | DVHPN2 ---
Subjective He is wanting to go home Reviewed: H&P Changes from previous H/P or p: No Changes Objective Vitals Vital Signs Date Time Temp Pulse Resp B/P (MAP) Pulse Ox O2 Delivery O2 Flow Rate FiO2 02/25/25 17:15 36.6 80 19 95 02/25/25 17:00 166/100 (122) 02/25/25 08:00 Room Air* 0 21 Intake/Output Intake and Output 02/25/25 05:00 Intake Total 100 ml Output Total 1050 ml Balance -950 ml Intake Oral 0 ml IV Total 100 ml Output Urine Total 1050 ml General Appearance: Alert, Oriented X3 HEENT: Atraumatic Cardiovascular: Regular rate, Normal S1, Normal S2 Abdomen: Normal bowel sounds Medications Current Medications Medications Dose Ordered Sig/Lauren Route Start Time Stop Time Status Last Admin Dose Admin Piperacillin Sod/ Tazobactam Sod 100 ml @ 25 mls/hr Q8HR IV 02/24/25 06:00 02/25/25 13:52 25 MLS/HR Pantoprazole Sodium 40 mg DAILY IV 02/24/25 10:00 02/25/25 10:08 40 MG Diagnostic Test (Pha) 1 strip Q6HR 02/24/25 00:00 02/25/25 12:00 1 STRIP Insulin Human Regular Q6HR SC 02/24/25 00:00 02/25/25 05:51 2 UNITS Dextrose 50 ml UD PRN IV 02/23/25 19:15 Ondansetron HCl 4 mg Q4HP PRN IV 02/23/25 19:15 Morphine Sulfate 2 mg Q4HPRN PRN IV 02/23/25 19:15 02/25/25 10:09 2 MG Docusate Sodium 100 mg BIDPRN PRN PO 02/25/25 14:15 Laboratory Results Laboratory Tests 02/24/25 06:04 Urinalysis Test 02/23/25 20:03 Urine Color Light-yellow (Yellow) Urine Clarity Clear (Clear) Urine pH 5.5 (5.0-9.0) Urine Specific [place] 1.011 (1.001-1.035) Urine Protein Negative (Negative) Urine Ketones Negative (Negative) Urine Blood Negative /uL (Negative) Urine Nitrite Negative (Negative) Urine Bilirubin Negative (Negative) Urine Urobilinogen Normal mg/dL (Negative) Urine Leukocyte Esterase Negative /uL (Negative) Urine RBC 1 /hpf (0 - 3) Urine Microscopic WBC < 1 /HPF (0-3) Urine Squamous Epithelial Cells None seen /hpf (<5) Urine Bacteria None seen /hpf (None Seen) Urine Mucus Few (None Seen) Urine Glucose Normal mg/dL (Normal) Assessment/Plan Assessment/Plan Acute abdominal pain Rule out acute appendicitis Continue IV abx Advance to clear liquid diet Gen surgery recs for GI consult Repeat CT abdomen reviewed and same swelling Plan discussed with: Patient My Orders Orders - FELICITY DU MD Procedure Category Date Status Time Discharge DISCHARGE 02/25/25 Transmitted 15:28 Discontinue Day FLOR 02/25/25 In Process Catheter 18:40 Date of Service: Feb 25, 2025 Billing Provider: FELICITY DU MD Common Visit Codes: [id number] INP/OBS CARE(HIGH) FELICITY DU MD Feb 25, 2025 19:45
[2025-02-26] VITALS (8 sets, daily range): BP systolic 114–142; BP diastolic 80–95; PULSE 77–99; RESP 17–18; TEMP 97.7–100.1; O2SAT 93–98
[2025-02-26] MEDS: OMNIPAQUE 12mg/ml 500ml ORAL SOLUTION PO ONE (11:11)
--- NOTE | 2025-02-26 11:47 | DVHPN2 ---
Progress Note Date Seen: Feb 26, 2025 Resident Creating Document: ALEE GAMEZ RESIDENT Medical Necessity Reason Pt with a Central, PICC or Fol: No Subjective Review of Systems Overnight 100.1 F T-max, LFTs unremarkable. Reports 2 bowel movements tolerating diet Denies abdominal pain Objective vital signs Vital Sign Date Time Temp Pulse Resp B/P (MAP) Pulse Ox O2 Delivery O2 Flow Rate FiO2 02/26/25 09:00 97.7 93 18 117/95 (102) 93 97.7 02/25/25 20:00 Room Air* 0 21 Total Intake and Output 02/25/25 02/25/25 02/26/25 15:00 23:00 07:00 Intake Total 100 ml 700 ml Output Total 400 ml 200 ml Balance -300 ml 500 ml medications Current Medications Medications Dose Ordered Sig/Lauren Route Start Time Stop Time Status Last Admin Dose Admin Piperacillin Sod/ Tazobactam Sod 100 ml @ 25 mls/hr Q8HR IV 02/24/25 06:00 02/26/25 05:40 25 MLS/HR Pantoprazole Sodium 40 mg DAILY IV 02/24/25 10:00 02/26/25 09:11 40 MG Diagnostic Test (Pha) 1 strip Q6HR 02/24/25 00:00 02/26/25 05:40 1 STRIP Insulin Human Regular Q6HR SC 02/24/25 00:00 02/26/25 05:49 2 UNITS Dextrose 50 ml UD PRN IV 02/23/25 19:15 Ondansetron HCl 4 mg Q4HP PRN IV 02/23/25 19:15 Morphine Sulfate 2 mg Q4HPRN PRN IV 02/23/25 19:15 02/25/25 10:09 2 MG Docusate Sodium 100 mg BIDPRN PRN PO 02/25/25 14:15 Examination Overweight female lying in bed, in no acute distress General: Overweight afebrile, palor, mucosae are moist Cardiovascular: Regular S1 and S2. No murmurs, gallops or rubs. No JVD elevation. No pedal edema Respiratory: Normal B/L air entry on room air. Clear lung sounds on auscultation Abdomen: Soft, nontender, nondistended, hypoactive bowel sounds, no rebound tenderness, no organomegaly, no masses Genitourinary: Deferred laboratory and microbiology Laboratory Tests 02/24/25 06:04 Test 02/24/25 06:04 Range/Units Serum Glucose 141 H 74-106 mg/dL Microbiology Date/Time Source Procedure Growth Status 02/25/25 18:45 Urine - Catheterized Urine Culture - Preliminary No growth Resulted Labs and/or images reviewed: Labs reviewed by me, Image(s) reviewed by me Problem List/Assessment/Plan Problem List/Assessment/Plan Abdominal pain Rule out appendicitis Ruled out acute Cystitis Hepatic steatosis Status post cholecystectomy Diabetes mellitus type [address] abdomen with contrast shows Dilated appendix again noted, not significantly changed in size compared to the prior exam when measured at a similar location. There is no periappendiceal stranding, fluid, or other signs of inflammation to confirm acute appendicitis. There is contrast within the lumen of the appendix. Can not completely exclude appendicitis in the appropriate clinical setting given the abnormal diameter of the appendix. Correlate with clinical findings. Hepatic steatosis. Mildly dilated common bile duct, may be seen after cholecystectomy due to reservoir effect. Plan: Patient tolerating diet well. Had 2 bowel movements earlier. Abdomen soft nontender. Recommend continuing conservative management. No evidence of appendicitis as the contrast is entering the appendix. Follow up with blood culture Continue IV fluid, IV antibiotic Urine culture. Follow up with [facility] Protonix 40 mg daily Clear liquid diet Monitor labs We will continue to follow patient Plan discussed with patient and RN Thank you for this consult Plan discussed with patient in which all questions have been answered Case discussed with Dr. Paiz Plan discussed with: Patient ALEE GAMEZ RESIDENT Feb 26, 2025 11:47
[2025-02-26 13:23] LABS: Alanine Aminotransferase 36 U/L (7-40); Albumin 4.1 g/dL (3.2-4.8); Alkaline Phosphatase 76 U/L (46-116); Anion Gap 9 (5-15); BUN/Creatinine Ratio 9.4 (10.0-20.0); Calcium 9.1 mg/dL (8.7-10.4); Carbon Dioxide 27 mmol/L (20-31); Chloride 102 mmol/L (98-107); Potassium 3.7 mmol/L (3.5-5.1); Sodium 138 mmol/L (136-145); Total Protein 6.8 g/dL (5.7-8.2)
[2025-02-26 13:24] LABS: Bilirubin, Total 1.0 mg/dL (0.2-1.0)
[2025-02-26 13:38] LABS: Blood Urea Nitrogen 9 mg/dL (9-23); Glucose 252 mg/dL (74-106)
--- NOTE | 2025-02-26 15:47 | DVHPN2 ---
Subjective Having vomiting with clear liquid diet Reviewed: H&P Changes from previous H/P or p: No Changes Objective Vitals Vital Signs Date Time Temp Pulse Resp B/P (MAP) Pulse Ox O2 Delivery O2 Flow Rate FiO2 02/26/25 13:00 97.7 79 18 114/87 (96) 94 97.7 02/25/25 20:00 Room Air* 0 21 Intake/Output Intake and Output 02/26/25 05:00 Intake Total 800 ml Output Total 1200 ml Balance -400 ml Intake Oral 700 ml IV Total 100 ml Output Urine Total 1200 ml General Appearance: Alert, Oriented X3 HEENT: Atraumatic Cardiovascular: Regular rate, Normal S1, Normal S2 Abdomen: Normal bowel sounds Medications Current Medications Medications Dose Ordered Sig/Lauren Route Start Time Stop Time Status Last Admin Dose Admin Piperacillin Sod/ Tazobactam Sod 100 ml @ 25 mls/hr Q8HR IV 02/24/25 06:00 02/26/25 12:31 25 MLS/HR Pantoprazole Sodium 40 mg DAILY IV 02/24/25 10:00 02/26/25 09:11 40 MG Diagnostic Test (Pha) 1 strip Q6HR 02/24/25 00:00 02/26/25 12:21 1 STRIP Insulin Human Regular Q6HR SC 02/24/25 00:00 02/26/25 12:00 3 UNITS Dextrose 50 ml UD PRN IV 02/23/25 19:15 Ondansetron HCl 4 mg Q4HP PRN IV 02/23/25 19:15 Morphine Sulfate 2 mg Q4HPRN PRN IV 02/23/25 19:15 02/25/25 10:09 2 MG Docusate Sodium 100 mg BIDPRN PRN PO 02/25/25 14:15 Laboratory Results Laboratory Tests 02/24/25 06:04 02/26/25 12:53 Chemistry Test 02/26/25 12:53 Albumin 4.1 g/dL (3.2-4.8) Calcium Level 9.1 mg/dL (8.7-10.4) Total Protein 6.8 g/dL (5.7-8.2) LFT Test 02/26/25 12:53 Alanine Aminotransferase (ALT) 36 U/L (7-40) Alkaline Phosphatase 76 U/L (46-116) Aspartate Amino Transferase (AST) 21 U/L (13-40) Total Bilirubin 1.0 mg/dL (0.2-1.0) Urinalysis Test 02/23/25 20:03 Urine Color Light-yellow (Yellow) Urine Clarity Clear (Clear) Urine pH 5.5 (5.0-9.0) Urine Specific [place] 1.011 (1.001-1.035) Urine Protein Negative (Negative) Urine Ketones Negative (Negative) Urine Blood Negative /uL (Negative) Urine Nitrite Negative (Negative) Urine Bilirubin Negative (Negative) Urine Urobilinogen Normal mg/dL (Negative) Urine Leukocyte Esterase Negative /uL (Negative) Urine RBC 1 /hpf (0 - 3) Urine Microscopic WBC < 1 /HPF (0-3) Urine Squamous Epithelial Cells None seen /hpf (<5) Urine Bacteria None seen /hpf (None Seen) Urine Mucus Few (None Seen) Urine Glucose Normal mg/dL (Normal) Microbiology Microbiology Date/Time Source Procedure Growth Status 02/25/25 18:45 Urine - Catheterized Urine Culture - Preliminary No growth Resulted Assessment/Plan Assessment/Plan Acute abdominal pain Rule out acute appendicitis Continue IV abx Advance to clear liquid diet Gen surgery recs for GI consult Repeat CT abdomen reviewed and same swelling Repeat CT today due to worsening vomiting Plan discussed with: Patient My Orders Orders - FELICITY DU MD Procedure Category Date Status Time Discontinue Day FLOR 02/25/25 In Process Catheter 18:40 Ct Ab Pel With Oral CT 02/26/25 Taken Con Only 11:04 Date of Service: Feb 26, 2025 Billing Provider: FELICITY DU MD Common Visit Codes: [id number] INP/OBS CARE(HIGH) FELICITY DU MD Feb 26, 2025 15:47
--- NOTE | 2025-02-26 16:52 | DVH ---
EXAM: CT CT AB PEL WITH ORAL CON ONLY History: N/V Comparison Study: CT CT AB PEL WO CON-NO ORAL OR IV on DOS: 02/23/25 TECHNIQUE: Multidetector CT of the abdomen and pelvis with oral contrast. Axial, coronal and sagittal multiplanar reformats were obtained from the axial data set by the technologist. Radiation Dose Information: CT Dose: CTDI volume is 6.05 mGy. Dose-length product is 3.92 mGy*cm FINDINGS: Bibasilar ground-glass opacities with inter lobar septal thickening and right basilar consolidation. Mild cardiomegaly with trace pericardial effusion. Mild hepatomegaly. Otherwise, liver, spleen, pancreas and adrenal glands unremarkable. The gallbladder is not visualized. Question cholecystectomy. The common bile duct is within normal limits in size. 1.8 cm right renal lower pole parapelvic cysts. Mild bilateral hydroureteronephrosis with no obstructing calculus noted. Urinary bladder is [id number] distended. Otherwise unremarkable. Prostate is enlarged measuring 5 x 6.1 by 5.9 cm. Mild gaseous distention of the distal esophagus. Mild gastric wall thickening which may be due to inadequate distention. Small bowel loops are unremarkable. Oral contrast is noted within the stomach, small bowel loops, and Large bowel. No evidence of bowel obstruction. Limited evaluation of the lower abdomen due to motion with the appendix incompletely assessed measuring up to 1.6 cm proximally and 1.3 cm distally. Noted within the appendix. Mild wall thickening of the ascending colon. No evidence of intraperitoneal free air or free fluid. No evidence of aortic aneurysm. No significant lymphadenopathy. The soft tissues are unremarkable. No evidence of acute osseous abnormalities. IMPRESSION: Limited evaluation of the lower abdomen due to motion. Redemonstration of contrast filled Distended appendix measuring up to 1.6 cm which is not adequately assessed due to Motion. Mild colitis involving the ascending colon. Mild Gastric wall thickening which may be due to inadequate distention/mild gastritis. Mild bilateral hydroureteronephrosis with no obstructing calculus noted. Enlarged prostate. Recommend correlation with PSA. Ground-glass opacities of the lung bases with right basilar opacity which may be from infectious/inflammatory process
[2025-02-27] VITALS (8 sets, daily range): BP systolic 125–156; BP diastolic 66–93; PULSE 78–107; RESP 16–20; TEMP 98.2–98.9; O2SAT 95–98
[2025-02-27 08:14] LABS: Anion Gap 12 (5-15); Carbon Dioxide 27 mmol/L (20-31)
[2025-02-27 08:15] LABS: Calcium 9.4 mg/dL (8.7-10.4)
[2025-02-27 08:16] LABS: Chloride 104 mmol/L (98-107); Potassium 3.4 mmol/L (3.5-5.1); Sodium 143 mmol/L (136-145)
[2025-02-27 08:22] LABS: BUN/Creatinine Ratio 5.7 (10.0-20.0); Blood Urea Nitrogen < 5 mg/dL (9-23); Glucose 111 mg/dL (74-106)
[2025-02-27 08:26] LABS: Hematocrit 46.0 % (41.0-53.0); Hemoglobin 16.1 g/dL (13.5-17.5); Mean Corpuscular Hemoglobin 32.4 pg (28.0-32.0); Mean Corpuscular Volume 92.4 fL (80.0-100.0); Nucleated Red Blood Cells % 0.0 %
--- NOTE | 2025-02-27 16:25 | DVHPN2 ---
Subjective Having vomiting with clear liquid diet Reviewed: H&P Changes from previous H/P or p: No Changes Objective Vitals Vital Signs Date Time Temp Pulse Resp B/P (MAP) Pulse Ox O2 Delivery O2 Flow Rate FiO2 02/27/25 13:00 98.3 104 20 156/89 (111) 96 98.3 02/27/25 08:00 Room Air* 0 21 Intake/Output Intake and Output 02/27/25 05:00 Intake Total 1900 ml Output Total 600 ml Balance 1300 ml Intake Oral 1400 ml IV Total 300 ml Other 200 ml Output Urine Total 600 ml # Voids 4 General Appearance: Alert, Oriented X3 HEENT: Atraumatic Cardiovascular: Regular rate, Normal S1, Normal S2 Abdomen: Normal bowel sounds Medications Current Medications Medications Dose Ordered Sig/Lauren Route Start Time Stop Time Status Last Admin Dose Admin Piperacillin Sod/ Tazobactam Sod 100 ml @ 25 mls/hr Q8HR IV 02/24/25 06:00 02/27/25 13:36 25 MLS/HR Pantoprazole Sodium 40 mg DAILY IV 02/24/25 10:00 02/27/25 08:59 40 MG Diagnostic Test (Pha) 1 strip Q6HR 02/24/25 00:00 02/27/25 12:08 1 STRIP Insulin Human Regular Q6HR SC 02/24/25 00:00 02/27/25 12:17 3 UNITS Dextrose 50 ml UD PRN IV 02/23/25 19:15 Ondansetron HCl 4 mg Q4HP PRN IV 02/23/25 19:15 Morphine Sulfate 2 mg Q4HPRN PRN IV 02/23/25 19:15 02/25/25 10:09 2 MG Docusate Sodium 100 mg BIDPRN PRN PO 02/25/25 14:15 Laboratory Results Laboratory Tests 02/27/25 05:25 Chemistry Test 02/27/25 05:25 Calcium Level 9.4 mg/dL (8.7-10.4) Urinalysis Test 02/23/25 20:03 Urine Color Light-yellow (Yellow) Urine Clarity Clear (Clear) Urine pH 5.5 (5.0-9.0) Urine Specific [place] 1.011 (1.001-1.035) Urine Protein Negative (Negative) Urine Ketones Negative (Negative) Urine Blood Negative /uL (Negative) Urine Nitrite Negative (Negative) Urine Bilirubin Negative (Negative) Urine Urobilinogen Normal mg/dL (Negative) Urine Leukocyte Esterase Negative /uL (Negative) Urine RBC 1 /hpf (0 - 3) Urine Microscopic WBC < 1 /HPF (0-3) Urine Squamous Epithelial Cells None seen /hpf (<5) Urine Bacteria None seen /hpf (None Seen) Urine Mucus Few (None Seen) Urine Glucose Normal mg/dL (Normal) Microbiology Microbiology Date/Time Source Procedure Growth Status 02/26/25 13:27 Blood Blood Culture - Preliminary NO GROWTH AFTER 24 HOURS OF INCUBATION. Resulted 02/25/25 18:45 Urine - Catheterized Urine Culture - Preliminary Resulted Assessment/Plan Assessment/Plan Acute abdominal pain Rule out acute appendicitis Colitis on new CT scen Continue IV abx Advance to clear liquid diet GI consult Plan discussed with: Patient Date of Service: Feb 27, 2025 Billing Provider: FELICITY DU MD Common Visit Codes: [id number] INP/OBS CARE(HIGH) FELICITY DU MD Feb 27, 2025 16:25
--- NOTE | 2025-02-27 20:10 | DVHPN2 ---
Progress Note - Dictate Date Seen: Feb 27, 2025 Medical Necessity Reason Pt with a Central, PICC or Fol: No Subjective No new complaints Patient is sleeping comfortably Patient did have persistent nausea and vomiting and he was started on a diet vital signs Vital Sign Date Time Temp Pulse Resp B/P (MAP) Pulse Ox O2 Delivery O2 Flow Rate FiO2 02/27/25 17:41 98.4 89 20 155/87 (109) 97 98.4 02/27/25 08:00 Room Air* 0 21 Total Intake and Output 02/26/25 02/26/25 02/27/25 15:00 23:00 07:00 Intake Total 1100 ml 800 ml Output Total 600 ml Balance 1100 ml 200 ml medications Current Medications Medications Dose Ordered Sig/Lauren Route Start Time Stop Time Status Last Admin Dose Admin Piperacillin Sod/ Tazobactam Sod 100 ml @ 25 mls/hr Q8HR IV 02/24/25 06:00 02/27/25 13:36 25 MLS/HR Pantoprazole Sodium 40 mg DAILY IV 02/24/25 10:00 02/27/25 08:59 40 MG Diagnostic Test (Pha) 1 strip Q6HR 02/24/25 00:00 02/27/25 18:00 1 STRIP Insulin Human Regular Q6HR SC 02/24/25 00:00 02/27/25 18:06 3 UNITS Dextrose 50 ml UD PRN IV 02/23/25 19:15 Ondansetron HCl 4 mg Q4HP PRN IV 02/23/25 19:15 Morphine Sulfate 2 mg Q4HPRN PRN IV 02/23/25 19:15 02/27/25 16:48 2 MG Docusate Sodium 100 mg BIDPRN PRN PO 02/25/25 14:15 objective General Appearance: Alert, Oriented X3 HEENT: Atraumatic Cardiovascular: Regular rate, Normal S1, Normal S2 Abdomen: Normal bowel sounds laboratory and microbiology Laboratory Tests 02/27/25 05:25 Test 02/27/25 05:25 Range/Units Serum Glucose 111 #H 74-106 mg/dL Repeat CT ABD PELVIS IMPRESSION: Limited evaluation of the lower abdomen due to motion. Redemonstration of contrast filled Distended appendix measuring up to 1.6 cm which is not adequately assessed due to Motion. Mild colitis involving the ascending colon. Mild Gastric wall thickening which may be due to inadequate distention/mild gastritis. Mild bilateral hydroureteronephrosis with no obstructing calculus noted. Enlarged prostate. Recommend correlation with PSA. Ground-glass opacities of the lung bases with right basilar opacity which may be from infectious/inflammatory process Problems(with codes): (1) Intractable abdominal pain (2) Pneumonia (3) Bronchitis (4) Epigastric abdominal pain Prognosis Plan Continue supportive care No stool studies Patient is on IV antibiotics IV Zosyn Nausea management with Zofran IV Protonix Clear liquid diet No bowel movement recorded Continuing conservative management. No evidence of appendicitis as the contrast is entering the appendix. Follow up with blood culture Continue IV fluid, IV antibiotic Urine culture. Follow up with [facility] Protonix 40 mg daily Clear liquid diet Monitor labs If symptoms persist consider endoscopy We will continue to follow patient Plan discussed with patient and RN Plan discussed with: Patient, Other (Dr Covington) MANUELA JAFFE MD Feb 27, 2025 20:10
[2025-02-28] VITALS (8 sets, daily range): BP systolic 125–155; BP diastolic 62–91; PULSE 50–87; RESP 14–20; TEMP 98.2–98.9; O2SAT 94–98
[2025-02-28 06:31] LABS: Hematocrit 41.4 % (41.0-53.0); Hemoglobin 14.7 g/dL (13.5-17.5); Mean Corpuscular Hemoglobin 32.4 pg (28.0-32.0); Mean Corpuscular Volume 90.9 fL (80.0-100.0); Nucleated Red Blood Cells % 0.0 %
[2025-02-28 06:50] LABS: Anion Gap 9 (5-15); Carbon Dioxide 28 mmol/L (20-31); Chloride 102 mmol/L (98-107); Potassium 3.9 mmol/L (3.5-5.1); Sodium 139 mmol/L (136-145)
[2025-02-28 06:51] LABS: Calcium 9.1 mg/dL (8.7-10.4)
[2025-02-28 07:20] LABS: BUN/Creatinine Ratio 5.1 (10.0-20.0); Blood Urea Nitrogen < 5 mg/dL (9-23); Glucose 134 mg/dL (74-106)
--- NOTE | 2025-02-28 14:03 | DVHPN2 ---
Subjective Patient complaining of periumbilical pain which she describes as a knot type sensation No nausea vomiting Able to tolerate his diet Still complains of slight lower abdominal pain Last bowel movement was black Patient admits to having worsening cough symptoms Coco at bedside translating Reviewed: H&P Changes from previous H/P or p: No Changes Objective Vitals Vital Signs Date Time Temp Pulse Resp B/P (MAP) Pulse Ox O2 Delivery O2 Flow Rate FiO2 02/28/25 13:07 98.4 50 14 125/62 (83) 97 98.4 02/27/25 20:00 Room Air* 0 21 Intake/Output Intake and Output 02/28/25 07:00 Intake Total 2020 ml Output Total 1400 ml Balance 620 ml Intake Oral 1920 ml IV Total 100 ml Output Urine Total 1400 ml # Voids 1 Exam General: NAD, AAOX3 Chest: lung cerrato clear to auscultation Heart: RRR, no murmur Abdomen: Minimal-distended,+ periumbilical tenderness to palpation, +BS Medications Current Medications Medications Dose Ordered Sig/Lauren Route Start Time Stop Time Status Last Admin Dose Admin Piperacillin Sod/ Tazobactam Sod 100 ml @ 25 mls/hr Q8HR IV 02/24/25 06:00 02/28/25 04:59 25 MLS/HR Pantoprazole Sodium 40 mg DAILY IV 02/24/25 10:00 02/28/25 12:23 40 MG Diagnostic Test (Pha) 1 strip Q6HR 02/24/25 00:00 02/28/25 12:23 1 STRIP Insulin Human Regular Q6HR SC 02/24/25 00:00 02/28/25 12:59 3 UNITS Dextrose 50 ml UD PRN IV 02/23/25 19:15 Ondansetron HCl 4 mg Q4HP PRN IV 02/23/25 19:15 Morphine Sulfate 2 mg Q4HPRN PRN IV 02/23/25 19:15 02/27/25 16:48 2 MG Docusate Sodium 100 mg BIDPRN PRN PO 02/25/25 14:15 Laboratory Results Laboratory Tests 02/28/25 05:52 Chemistry Test 02/28/25 05:52 Calcium Level 9.1 mg/dL (8.7-10.4) Urinalysis Test 02/23/25 20:03 Urine Color Light-yellow (Yellow) Urine Clarity Clear (Clear) Urine pH 5.5 (5.0-9.0) Urine Specific [place] 1.011 (1.001-1.035) Urine Protein Negative (Negative) Urine Ketones Negative (Negative) Urine Blood Negative /uL (Negative) Urine Nitrite Negative (Negative) Urine Bilirubin Negative (Negative) Urine Urobilinogen Normal mg/dL (Negative) Urine Leukocyte Esterase Negative /uL (Negative) Urine RBC 1 /hpf (0 - 3) Urine Microscopic WBC < 1 /HPF (0-3) Urine Squamous Epithelial Cells None seen /hpf (<5) Urine Bacteria None seen /hpf (None Seen) Urine Mucus Few (None Seen) Urine Glucose Normal mg/dL (Normal) Microbiology Microbiology Date/Time Source Procedure Growth Status 02/26/25 13:27 Blood Blood Culture - Preliminary NO GROWTH AFTER 48 HOURS OF INCUBATION. Resulted 02/25/25 18:45 Urine - Catheterized Urine Culture - Final Complete Labs and/or images reviewed: Labs reviewed by me, Image(s) reviewed by me Assessment/Plan Assessment/Plan Abdominal pain Cystitis Hepatic steatosis Plan: Discussed with Dr. Paiz IV antibiotic Possible EGD to be considered in 1-2 days if patient continues with abdominal pain Diet as tolerated Plan discussed with: Patient, Other (RN) Date of Service: Feb 28, 2025 Billing Provider: AYO MITCHELL Common Visit Codes: [id number] INP/OBS CARE(HIGH) AYO MITCHELL Feb 28, 2025 14:02
--- NOTE | 2025-02-28 15:58 | DVHPN2 ---
Subjective Still having some pain in lower belly Reviewed: H&P Changes from previous H/P or p: No Changes Objective Vitals Vital Signs Date Time Temp Pulse Resp B/P (MAP) Pulse Ox O2 Delivery O2 Flow Rate FiO2 02/28/25 13:07 98.4 50 14 125/62 (83) 97 98.4 02/28/25 08:00 Room Air* 0 21 Intake/Output Intake and Output 02/28/25 07:00 Intake Total 2020 ml Output Total 1400 ml Balance 620 ml Intake Oral 1920 ml IV Total 100 ml Output Urine Total 1400 ml # Voids 1 General Appearance: Alert, Oriented X3 Lungs: Clear to auscultation Cardiovascular: Regular rate, Normal S1, Normal S2 Abdomen: Normal bowel sounds Medications Current Medications Medications Dose Ordered Sig/Lauren Route Start Time Stop Time Status Last Admin Dose Admin Piperacillin Sod/ Tazobactam Sod 100 ml @ 25 mls/hr Q8HR IV 02/24/25 06:00 02/28/25 14:14 25 MLS/HR Pantoprazole Sodium 40 mg DAILY IV 02/24/25 10:00 02/28/25 12:23 40 MG Diagnostic Test (Pha) 1 strip Q6HR 02/24/25 00:00 02/28/25 12:23 1 STRIP Insulin Human Regular Q6HR SC 02/24/25 00:00 02/28/25 12:59 3 UNITS Dextrose 50 ml UD PRN IV 02/23/25 19:15 Ondansetron HCl 4 mg Q4HP PRN IV 02/23/25 19:15 Morphine Sulfate 2 mg Q4HPRN PRN IV 02/23/25 19:15 02/27/25 16:48 2 MG Docusate Sodium 100 mg BIDPRN PRN PO 02/25/25 14:15 Laboratory Results Laboratory Tests 02/28/25 05:52 Chemistry Test 02/28/25 05:52 Calcium Level 9.1 mg/dL (8.7-10.4) Urinalysis Test 02/23/25 20:03 Urine Color Light-yellow (Yellow) Urine Clarity Clear (Clear) Urine pH 5.5 (5.0-9.0) Urine Specific [place] 1.011 (1.001-1.035) Urine Protein Negative (Negative) Urine Ketones Negative (Negative) Urine Blood Negative /uL (Negative) Urine Nitrite Negative (Negative) Urine Bilirubin Negative (Negative) Urine Urobilinogen Normal mg/dL (Negative) Urine Leukocyte Esterase Negative /uL (Negative) Urine RBC 1 /hpf (0 - 3) Urine Microscopic WBC < 1 /HPF (0-3) Urine Squamous Epithelial Cells None seen /hpf (<5) Urine Bacteria None seen /hpf (None Seen) Urine Mucus Few (None Seen) Urine Glucose Normal mg/dL (Normal) Microbiology Microbiology Date/Time Source Procedure Growth Status 02/26/25 13:27 Blood Blood Culture - Preliminary NO GROWTH AFTER 48 HOURS OF INCUBATION. Resulted 02/25/25 18:45 Urine - Catheterized Urine Culture - Final Complete Assessment/Plan Assessment/Plan Acute abdominal pain Rule out acute appendicitis Colitis on new CT scan Continue IV abx Advance to clear liquid diet GI consult>possible EGD if continues to have pain Plan discussed with: Patient Date of Service: Feb 28, 2025 Billing Provider: FELICITY DU MD Common Visit Codes: [id number] INP/OBS CARE(HIGH) FELICITY DU MD Feb 28, 2025 15:58
[2025-03-01] VITALS (7 sets, daily range): BP systolic 131–149; BP diastolic 69–86; PULSE 82–94; RESP 16–18; TEMP 98.2–99.1; O2SAT 94–97
[2025-03-01 06:45] LABS: Chloride 104 mmol/L (98-107); Sodium 140 mmol/L (136-145)
[2025-03-01 06:46] LABS: Anion Gap 11 (5-15); Calcium 9.1 mg/dL (8.7-10.4); Carbon Dioxide 25 mmol/L (20-31)
[2025-03-01 06:48] LABS: Potassium 3.5 mmol/L (3.5-5.1)
[2025-03-01 06:58] LABS: BUN/Creatinine Ratio 5.8 (10.0-20.0); Blood Urea Nitrogen < 5 mg/dL (9-23); Glucose 125 mg/dL (74-106)
[2025-03-01 07:24] LABS: Hematocrit 40.1 % (41.0-53.0); Hemoglobin 14.4 g/dL (13.5-17.5); Mean Corpuscular Hemoglobin 32.9 pg (28.0-32.0); Mean Corpuscular Volume 91.8 fL (80.0-100.0); Nucleated Red Blood Cells % 0.1 %
--- NOTE | 2025-03-01 09:34 | DVHPN2 ---
Progress Note Date Seen: Mar 01, 2025 Medical Necessity Reason Pt with a Central, PICC or Fol: No Objective vital signs Vital Sign Date Time Temp Pulse Resp B/P (MAP) Pulse Ox O2 Delivery O2 Flow Rate FiO2 03/01/25 08:05 98.8 91 16 146/86 (106) 95 98.8 02/28/25 20:00 Room Air* 0 21 Total Intake and Output 02/28/25 02/28/25 03/01/25 15:00 23:00 07:00 Intake Total 1200 ml Output Total 650 ml 830 ml Balance 550 ml -830 ml medications Current Medications Medications Dose Ordered Sig/Lauren Route Start Time Stop Time Status Last Admin Dose Admin Piperacillin Sod/ Tazobactam Sod 100 ml @ 25 mls/hr Q8HR IV 02/24/25 06:00 03/01/25 06:42 25 MLS/HR Pantoprazole Sodium 40 mg DAILY IV 02/24/25 10:00 02/28/25 12:23 40 MG Diagnostic Test (Pha) 1 strip Q6HR 02/24/25 00:00 02/28/25 18:09 1 STRIP Insulin Human Regular Q6HR SC 02/24/25 00:00 02/28/25 12:59 3 UNITS Dextrose 50 ml UD PRN IV 02/23/25 19:15 Ondansetron HCl 4 mg Q4HP PRN IV 02/23/25 19:15 Morphine Sulfate 2 mg Q4HPRN PRN IV 02/23/25 19:15 02/27/25 16:48 2 MG Docusate Sodium 100 mg BIDPRN PRN PO 02/25/25 14:15 laboratory and microbiology Laboratory Tests 03/01/25 05:47 Test 03/01/25 05:47 Range/Units Serum Glucose 125 H 74-106 mg/dL Problem List/Assessment/Plan Problem List/Assessment/Plan 03/01/25 patient continues to complain of difficulty with bowel movements and pain during attempted evacuation of his bowel, pain is located in mid abdomen, no nausea, no vomiting, his abdomen is slightly distended, no localized [id number], no evidence of peritoneal irritation, will obtain CEA diut to persistent symptoms and persistent appendiceal dilatation. Recommend uppwer and lower GI endoscopy. Plan discussed with: Patient DEBRA VELAZCO MD Mar 01, 2025 09:34
--- NOTE | 2025-03-01 10:44 | DVHPN2 ---
Subjective Still having some pain in lower belly Reviewed: H&P Changes from previous H/P or p: No Changes Objective Vitals Vital Signs Date Time Temp Pulse Resp B/P (MAP) Pulse Ox O2 Delivery O2 Flow Rate FiO2 03/01/25 08:05 98.8 91 16 146/86 (106) 95 98.8 02/28/25 20:00 Room Air* 0 21 Intake/Output Intake and Output 03/01/25 07:00 Intake Total 1200 ml Output Total 1480 ml Balance -280 ml Intake Oral 1200 ml Output Urine Total 1480 ml General Appearance: Alert, Oriented X3 Lungs: Clear to auscultation Cardiovascular: Regular rate, Normal S1, Normal S2 Abdomen: Normal bowel sounds Medications Current Medications Medications Dose Ordered Sig/Lauren Route Start Time Stop Time Status Last Admin Dose Admin Piperacillin Sod/ Tazobactam Sod 100 ml @ 25 mls/hr Q8HR IV 02/24/25 06:00 03/01/25 06:42 25 MLS/HR Pantoprazole Sodium 40 mg DAILY IV 02/24/25 10:00 03/01/25 10:36 40 MG Diagnostic Test (Pha) 1 strip Q6HR 02/24/25 00:00 02/28/25 18:09 1 STRIP Insulin Human Regular Q6HR SC 02/24/25 00:00 02/28/25 12:59 3 UNITS Dextrose 50 ml UD PRN IV 02/23/25 19:15 Ondansetron HCl 4 mg Q4HP PRN IV 02/23/25 19:15 Morphine Sulfate 2 mg Q4HPRN PRN IV 02/23/25 19:15 02/27/25 16:48 2 MG Docusate Sodium 100 mg BIDPRN PRN PO 02/25/25 14:15 Laboratory Results Laboratory Tests 03/01/25 05:47 Chemistry Test 03/01/25 05:47 Calcium Level 9.1 mg/dL (8.7-10.4) Urinalysis Test 02/23/25 20:03 Urine Color Light-yellow (Yellow) Urine Clarity Clear (Clear) Urine pH 5.5 (5.0-9.0) Urine Specific [place] 1.011 (1.001-1.035) Urine Protein Negative (Negative) Urine Ketones Negative (Negative) Urine Blood Negative /uL (Negative) Urine Nitrite Negative (Negative) Urine Bilirubin Negative (Negative) Urine Urobilinogen Normal mg/dL (Negative) Urine Leukocyte Esterase Negative /uL (Negative) Urine RBC 1 /hpf (0 - 3) Urine Microscopic WBC < 1 /HPF (0-3) Urine Squamous Epithelial Cells None seen /hpf (<5) Urine Bacteria None seen /hpf (None Seen) Urine Mucus Few (None Seen) Urine Glucose Normal mg/dL (Normal) Microbiology Microbiology Date/Time Source Procedure Growth Status 02/26/25 13:27 Blood Blood Culture - Preliminary NO GROWTH AFTER 48 HOURS OF INCUBATION. Resulted 02/25/25 18:45 Urine - Catheterized Urine Culture - Final Complete Assessment/Plan Assessment/Plan Acute abdominal pain Rule out acute appendicitis Colitis on new CT scan Continue IV abx Advance to clear liquid diet GI consult>possible EGD if continues to have pain Dr Gann recommending upper and lower endoscopy due to continued pain Plan discussed with: Patient Date of Service: Mar 01, 2025 Billing Provider: FELICITY DU MD Common Visit Codes: [id number] INP/OBS CARE(HIGH) FELICITY DU MD Mar 01, 2025 10:43
--- NOTE | 2025-03-01 16:18 | DVHPN2 ---
Progress Note Date Seen: Mar 01, 2025 Resident Creating Document: GENEVA NARVAEZ RESIDENT Medical Necessity Reason Pt with a Central, PICC or Fol: No Subjective Review of Systems Patient is tolerating clear liquid diet Abdominal pain is mesogastric, N/V improving Objective vital signs Vital Sign Date Time Temp Pulse Resp B/P (MAP) Pulse Ox O2 Delivery O2 Flow Rate FiO2 03/01/25 12:10 98.6 87 17 139/81 (100) 94 98.6 02/28/25 20:00 Room Air* 0 21 Total Intake and Output 02/28/25 02/28/25 03/01/25 15:00 23:00 07:00 Intake Total 1200 ml Output Total 650 ml 830 ml Balance 550 ml -830 ml medications Current Medications Medications Dose Ordered Sig/Lauren Route Start Time Stop Time Status Last Admin Dose Admin Piperacillin Sod/ Tazobactam Sod 100 ml @ 25 mls/hr Q8HR IV 02/24/25 06:00 03/01/25 13:12 25 MLS/HR Pantoprazole Sodium 40 mg DAILY IV 02/24/25 10:00 03/01/25 10:36 40 MG Diagnostic Test (Pha) 1 strip Q6HR 02/24/25 00:00 03/01/25 11:36 1 STRIP Insulin Human Regular Q6HR SC 02/24/25 00:00 02/28/25 12:59 3 UNITS Dextrose 50 ml UD PRN IV 02/23/25 19:15 Ondansetron HCl 4 mg Q4HP PRN IV 02/23/25 19:15 Morphine Sulfate 2 mg Q4HPRN PRN IV 02/23/25 19:15 03/01/25 11:05 2 MG Docusate Sodium 100 mg BIDPRN PRN PO 02/25/25 14:15 Examination General Appearance: Alert, Oriented X3 HEENT: Atraumatic Cardiovascular: Regular rate, Normal S1, Normal S2 Abdomen: Normal bowel sounds laboratory and microbiology Laboratory Tests 03/01/25 05:47 Test 03/01/25 05:47 Range/Units Serum Glucose 125 H 74-106 mg/dL Microbiology Date/Time Source Procedure Growth Status 02/26/25 13:27 Blood Blood Culture - Preliminary NO GROWTH AFTER 72 HOURS OF INCUBATION. Resulted 02/25/25 18:45 Urine - Catheterized Urine Culture - Final Complete Problem List/Assessment/Plan Problem List/Assessment/Plan Abdominal pain Rule out appendicitis Ruled out acute Cystitis Hepatic steatosis Status post cholecystectomy Diabetes mellitus type [address] abdomen with contrast shows Dilated appendix again noted, not significantly changed in size compared to the prior exam when measured at a similar location. There is no periappendiceal stranding, fluid, or other signs of inflammation to confirm acute appendicitis. There is contrast within the lumen of the appendix. Can not completely exclude appendicitis in the appropriate clinical setting given the abnormal diameter of the appendix. Correlate with clinical findings. Hepatic steatosis. Mildly dilated common bile duct, may be seen after cholecystectomy due to reservoir effect. Dr Gann note: 03/01/25 patient continues to complain of difficulty with bowel movements and pain during attempted evacuation of his bowel, pain is located in mid abdomen, no nausea, no vomiting, his abdomen is slightly distended, no localized [id number], no evidence of peritoneal irritation, will obtain CEA diut to persistent symptoms and persistent appendiceal dilatation. Recommend uppwer and lower GI endoscopy. Plan: We will do EGD and colonoscopy tomorrow IV antibiotic per primary team Protonix 40 mg daily Clear liquid diet Continue colonoscopy preparation Monitor labs We will continue to follow patient Plan discussed with patient and RN Thank you for this consult Plan discussed with patient in which all questions have been answered Case discussed with Dr. Paiz Plan discussed with: Patient, Other (rn) GENEVA NARVAEZ RESIDENT Mar 01, 2025 16:18
[2025-03-01] MEDS: GOLYTELY 4L KIT PO ONE (18:09)
[2025-03-01 19:38] LABS: INR 1.09 (0.9-1.15); Partial Thromboplastin Time 32.2 SEC (24.5-34.5); Prothrombin Time 11.5 sec (9.3-11.8)
[2025-03-02] VITALS (11 sets, daily range): BP systolic 131–149; BP diastolic 69–90; PULSE 81–104; RESP 14–22; TEMP 97.8–99.1; O2SAT 94–100
[2025-03-02] MEDS: MAGNESIUM CITRATE SOLUTION 300 ML BTL PO ONE (05:47)
[2025-03-02] MEDS: GOLYTELY 4L KIT PO ONE (05:48)
[2025-03-02 06:48] LABS: Hematocrit 40.5 % (41.0-53.0); Hemoglobin 14.6 g/dL (13.5-17.5); Mean Corpuscular Hemoglobin 33.1 pg (28.0-32.0); Mean Corpuscular Volume 91.6 fL (80.0-100.0); Nucleated Red Blood Cells % 0.0 %
[2025-03-02 07:01] LABS: Chloride 101 mmol/L (98-107); Sodium 140 mmol/L (136-145)
[2025-03-02 07:02] LABS: Anion Gap 13 (5-15); Calcium 9.2 mg/dL (8.7-10.4); Carbon Dioxide 26 mmol/L (20-31)
[2025-03-02 07:15] LABS: BUN/Creatinine Ratio 6.0 (10.0-20.0); Blood Urea Nitrogen < 5 mg/dL (9-23); Glucose 141 mg/dL (74-106); Potassium 3.3 mmol/L (3.5-5.1)
--- NOTE | 2025-03-02 10:56 | DVHPN2 ---
Subjective The patient is seen and examined at bedside. The patient complained of abdominal pain. Waiting for endoscopy and colonoscopy. Reviewed: Care Plan, H&P, Labs, Medications, Previous Orders, Radiology Changes from previous H/P or p: No Changes Objective Vitals Vital Signs Date Time Temp Pulse Resp B/P (MAP) Pulse Ox O2 Delivery O2 Flow Rate FiO2 03/02/25 08:54 98.5 99 16 135/78 (97) 94 98.5 03/02/25 08:00 Room Air* 0 21 Intake/Output Intake and Output 03/02/25 07:00 Intake Total 1444 ml Output Total 700 ml Balance 744 ml Intake Oral 1144 ml IV Total 300 ml Output Urine Total 700 ml # Voids 1 # Bowel Movements 16 General Appearance: Alert, Oriented X3, Cooperative, No acute distress HEENT: Atraumatic, PERRLA, EOMI, Mucous membr. moist/pink Neck: Supple Lungs: Clear to auscultation Cardiovascular: Regular rate, Normal S1, Normal S2, No murmurs, Gallops, Rubs Abdomen: Normal bowel sounds, Soft, No tenderness Neuro: Cranial nerves 3-12 NL Psych/Mental Status: Mental status NL Medications Current Medications Medications Dose Ordered Sig/Lauren Route Start Time Stop Time Status Last Admin Dose Admin Piperacillin Sod/ Tazobactam Sod 100 ml @ 25 mls/hr Q8HR IV 02/24/25 06:00 03/02/25 05:47 25 MLS/HR Pantoprazole Sodium 40 mg DAILY IV 02/24/25 10:00 03/02/25 10:22 40 MG Diagnostic Test (Pha) 1 strip Q6HR 02/24/25 00:00 03/02/25 05:48 1 STRIP Insulin Human Regular Q6HR SC 02/24/25 00:00 03/02/25 00:58 2 UNITS Dextrose 50 ml UD PRN IV 02/23/25 19:15 Ondansetron HCl 4 mg Q4HP PRN IV 02/23/25 19:15 Morphine Sulfate 2 mg Q4HPRN PRN IV 02/23/25 19:15 03/01/25 11:05 2 MG Docusate Sodium 100 mg BIDPRN PRN PO 02/25/25 14:15 Laboratory Results Laboratory Tests 03/02/25 06:07 Chemistry Test 03/02/25 06:07 Calcium Level 9.2 mg/dL (8.7-10.4) Coagulation Test 03/01/25 18:57 Prothrombin Time 11.5 sec (9.3-11.8) Prothrombin Time INR 1.09 (0.9-1.15) Activated Partial Thromboplast Time 32.2 SEC (24.5-34.5) Urinalysis Test 02/23/25 20:03 Urine Color Light-yellow (Yellow) Urine Clarity Clear (Clear) Urine pH 5.5 (5.0-9.0) Urine Specific [place] 1.011 (1.001-1.035) Urine Protein Negative (Negative) Urine Ketones Negative (Negative) Urine Blood Negative /uL (Negative) Urine Nitrite Negative (Negative) Urine Bilirubin Negative (Negative) Urine Urobilinogen Normal mg/dL (Negative) Urine Leukocyte Esterase Negative /uL (Negative) Urine RBC 1 /hpf (0 - 3) Urine Microscopic WBC < 1 /HPF (0-3) Urine Squamous Epithelial Cells None seen /hpf (<5) Urine Bacteria None seen /hpf (None Seen) Urine Mucus Few (None Seen) Urine Glucose Normal mg/dL (Normal) Microbiology Microbiology Date/Time Source Procedure Growth Status 02/26/25 13:27 Blood Blood Culture - Preliminary NO GROWTH AFTER 72 HOURS OF INCUBATION. Resulted 02/25/25 18:45 Urine - Catheterized Urine Culture - Final Complete Labs and/or images reviewed: Labs reviewed by me Assessment/Plan Assessment/Plan Acute abdominal pain Rule out appendicitis Ruled out acute Cystitis Hepatic steatosis Status post cholecystectomy Diabetes mellitus type 2 Hypertension BPH Continuing current management. Continuing with IV antibiotic Rocephin. Continuing with sliding scale insulin. Continuing with hypertensive medication. Waiting for endoscopy and colonoscopy. Appreciate GI and surgery input This medical document was created using an electronic medical record system with [employer] direct computerized dictation system. Although this document has been carefully reviewed, there may still be some phonetic and typographical errors. These areas are purely typographical due to imperfections of the software programs, and do not reflect any compromise in the patient's medical care. Plan discussed with: Patient Date of Service: Mar 02, 2025 Billing Provider: MARJ MABRY MD Common Visit Codes: [id number] INP/OBS CARE(HIGH) MARJ MABRY MD Mar 02, 2025 10:56
--- NOTE | 2025-03-02 11:02 | ECG ---
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
[2025-03-02] MEDS ORDERED: PROPOFOL 10 MG/ML 20 ML IV ONE ×2 (14:03→14:31)
[2025-03-02] MEDS ORDERED: LIDOCAINE 2% (LOCAL ANESTH.) PF 5ml SDV ONE (14:03)
--- NOTE | 2025-03-02 15:00 | DVHOP2 ---
Operative Report DATE OF OPERATION: 03/02/25 PROCEDURE: Upper Endoscopy with biopsy and hot snare polypectomy. PREOPERATIVE INDICATION: The patient is a 69 -year-old male undergoing endoscopy for nausea vomiting and abdominal pain POSTOPERATIVE DIAGNOSES: 1. Patient had a 1.5 cm gastro duodenal polyp seen within the pyloric channel and in the proximal part of the duodenal which was initially biopsied and this was removed completely via hot snare polypectomy and the specimens were retrieved 2. 2 cm sliding-type hiatal hernia with slightly irregular squamocolumnar juncti on no significant erosive esophagitis 3. Minimal gastroduodenitis otherwise normal examination up to the 2nd and 3rd part of the duodenum PROCEDURE PERFORMED BY: Manuela Paiz GI NURSE: Meghana SCOPE: Olympus videoendoscope. ASA CLASS: 3 PREOPERATIVE MEDICATIONS: Mac sedation, Tony Mendoza PROCEDURE IN DETAIL: After obtaining an informed consent, the patient was placed on left lateral decubitus position. The patient was then sedated with the above medications. A bite block was placed between his teeth. The endoscope was then passed through the oropharynx, into the esophagus, and through the stomach and pylorus up to the second and third part of the duodenum. The endoscope was then withdrawn. The 2nd and 3rd part of the duodenal were normal. Duodenal bulb showed duodenitis Patient had a 1.5 cm polyp seen on the duodenal side of the pyloric channel This was ball valving back into the antrum. This was initially biopsied in the hold polyp was removed by hot snare polypectomy On retroflexion and straight on view patient had normal fundus and cardia. There was minimal gastritis. Gastric biopsies and duodenal biopsies were obtained The endoscope was then withdrawn into distal esophagus where the patient had a 2 cm sliding-type hiatal hernia with slightly irregular squamocolumnar junction no significant erosive esophagitis Remaining distal and proximal esophagus and oropharynx were unremarkable The patient tolerated the procedure well without difficulty. COMPLICATIONS : None SPECIMENS: Duodenal biopsies Gastro duodenal polyp Gastric biopsies DISPOSITION: Transfer back to the floor Stable PLAN: 1. Await for biopsy result 2. Will place pt on Protonix 40 mg bid 3. Carafate suspension 1 g p.o. twice a day 4. Start with clear liquid diet advance to full liquid 5. Hold aspirin NSAIDs smoking alcohol 6. Outpatient follow up with me in 4-6 weeks to review results and discuss further management MANUELA PAIZ MD Mar 02, 2025 15:00
--- NOTE | 2025-03-02 15:03 | DVHOP2 ---
Operative Report DATE OF OPERATION: 03/02/25 PROCEDURE: Diagnostic Colonoscopy. PREOPERATIVE INDICATION: The patient is a 69 -year-old male undergoing colonoscopy for colon cancer screening and evaluation of abnormal finding CT abdomen POSTOPERATIVE DIAGNOSES: 1. Trace internal hemorrhoids otherwise essentially complete and normal colonoscopy examination up to the cecum and terminal ileum 2. Mild sigmoid muscular hypertrophy but no clear-cut diverticular disease PROCEDURE PERFORMED BY: Manuela Paiz M.D. SCOPE: Olympus videocolonoscope. ASA CLASS: 3. PREOPERATIVE MEDICATIONS: Mac laith, Tony Mendoza PROCEDURE IN DETAIL: After obtaining an informed consent, the patient was placed on left lateral decubitus position. He was then sedated with the above medications. A rectal examination was performed that was normal. The colonoscope was then passed through the anus into the rectosigmoid and through the descending, transverse, and ascending colon up to the cecum with visualization of the appendiceal orifice, base of the cecum and the ileocecal valve. The colonoscope was then withdrawn. The distal 5-10 cm of the terminal ileum were normal No polyps or masses were seen. There was no colitis or diverticular disease. Patient had mild sigmoid muscular hypertrophy. On retroflexion he had trace internal hemorrhoids The patient tolerated the procedure well without difficulty. WITHDRAWAL TIME: 6 minutes QUALITY OF THE PREP: [place] Bowel Prep score: 9. COMPLICATIONS : None SPECIMENS: None DISPOSITION: Transfer back to the floor Stable PLAN: 1. Repeat colonoscopy in 10 years 2. Resume GI soft diet advance as tolerated 3. Outpatient follow up with me in 2-4 weeks to review results and discuss further management MANUELA PAIZ MD Mar 02, 2025 15:03
[2025-03-02] MEDS: PANTOPRAZOLE 40 MG TAB PO SCH (17:42)
[2025-03-02] MEDS: SUCRALFATE 1 GM/10 ML ORAL SUSP PO SCH (17:42)
[2025-03-02] MEDS: ALBUTEROL SULF 2.5 MG/0.5ML(0.5%) NEB SOLN NEB PRN (18:13)
[2025-03-02] MEDS: IPRATROPIUM BROM 0.5 MG/2.5ML INH SOL NEB PRN (18:13)
[2025-03-03] VITALS (8 sets, daily range): BP systolic 128–149; BP diastolic 75–81; PULSE 86–104; RESP 17–20; TEMP 98.2–98.9; O2SAT 94–97
[2025-03-03 07:09] LABS: Hematocrit 38.9 % (41.0-53.0); Hemoglobin 13.8 g/dL (13.5-17.5); Mean Corpuscular Hemoglobin 32.2 pg (28.0-32.0); Mean Corpuscular Volume 90.9 fL (80.0-100.0); Nucleated Red Blood Cells % 0.0 %
[2025-03-03 07:15] LABS: Chloride 104 mmol/L (98-107); Sodium 140 mmol/L (136-145)
[2025-03-03 07:16] LABS: Anion Gap 13 (5-15); Calcium 9.0 mg/dL (8.7-10.4); Carbon Dioxide 23 mmol/L (20-31)
[2025-03-03 07:26] LABS: BUN/Creatinine Ratio 6.4 (10.0-20.0); Blood Urea Nitrogen < 5 mg/dL (9-23); Glucose 124 mg/dL (74-106); Potassium 3.2 mmol/L (3.5-5.1)
--- NOTE | 2025-03-03 10:51 | DVHPN2 ---
Progress Note Date Seen: Mar 03, 2025 Resident Creating Document: GENEVA NARVAEZ RESIDENT Medical Necessity Reason Pt with a Central, PICC or Fol: No Subjective Review of Systems Patient is tolerating diet No acute complaints Objective vital signs Vital Sign Date Time Temp Pulse Resp B/P (MAP) Pulse Ox O2 Delivery O2 Flow Rate FiO2 03/03/25 09:00 98.9 96 17 128/75 (92) 96 98.9 03/03/25 07:28 Nasal Cannula* 3 32 Total Intake and Output 03/02/25 03/02/25 03/03/25 15:00 23:00 07:00 Intake Total 100 ml 1240 ml 700 ml Output Total 800 ml Balance 100 ml 1240 ml -100 ml medications Current Medications Medications Dose Ordered Sig/Lauren Route Start Time Stop Time Status Last Admin Dose Admin Piperacillin Sod/ Tazobactam Sod 100 ml @ 25 mls/hr Q8HR IV 02/24/25 06:00 03/03/25 05:57 25 MLS/HR Diagnostic Test (Pha) 1 strip Q6HR 02/24/25 00:00 03/03/25 05:57 1 STRIP Insulin Human Regular Q6HR SC 02/24/25 00:00 03/03/25 00:44 3 UNITS Dextrose 50 ml UD PRN IV 02/23/25 19:15 Ondansetron HCl 4 mg Q4HP PRN IV 02/23/25 19:15 Morphine Sulfate 2 mg Q4HPRN PRN IV 02/23/25 19:15 03/01/25 11:05 2 MG Docusate Sodium 100 mg BIDPRN PRN PO 02/25/25 14:15 Sucralfate 1 gm QID@0600,1130,1700,2200 PO 03/02/25 17:00 03/03/25 05:57 1 GM Pantoprazole Sodium 40 mg BID@0600,1700 PO 03/02/25 17:00 03/03/25 05:57 40 MG Albuterol 2.5 mg Q6HPRN PRN NEB 03/02/25 17:00 03/03/25 07:27 2.5 MG Ipratropium [place] 0.5 mg Q6HPRN PRN NEB 03/02/25 17:00 03/03/25 07:27 0.5 MG Examination General Appearance: Alert, Oriented X3 HEENT: Atraumatic Cardiovascular: Regular rate, Normal S1, Normal S2 Abdomen: Normal bowel sounds laboratory and microbiology Laboratory Tests 03/03/25 05:40 Test 03/03/25 05:40 Range/Units Serum Glucose 124 H 74-106 mg/dL Microbiology Date/Time Source Procedure Growth Status 02/26/25 13:27 Blood Blood Culture - Preliminary NO GROWTH AFTER 72 HOURS OF INCUBATION. Resulted 02/25/25 18:45 Urine - Catheterized Urine Culture - Final Complete Problem List/Assessment/Plan Problem List/Assessment/Plan #1.5 cm gastro duodenal polyp seen within the pyloric channel and in the proximal part of the duodenal which was initially biopsied and this was removed completely via hot snare polypectomy and the specimens were retrieved #2. 2 cm sliding-type hiatal hernia with slightly irregular squamocolumnar junction no significant erosive esophagitis # Minimal gastroduodenitis # Trace internal hemorrhoids #Mild sigmoid muscular hypertrophy but no clear-cut diverticular disease Abdominal pain Rule out appendicitis Ruled out acute Cystitis Hepatic steatosis Status post cholecystectomy Diabetes mellitus type [address] abdomen with contrast shows Dilated appendix again noted, not significantly changed in size compared to the prior exam when measured at a similar location. There is no periappendiceal stranding, fluid, or other signs of inflammation to confirm acute appendicitis. There is contrast within the lumen of the appendix. Can not completely exclude appendicitis in the appropriate clinical setting given the abnormal diameter of the appendix. Correlate with clinical findings. Hepatic steatosis. Mildly dilated common bile duct, may be seen after cholecystectomy due to reservoir effect. Dr Gann note: 03/01/25 patient continues to complain of difficulty with bowel movements and pain during attempted evacuation of his bowel, pain is located in mid abdomen, no nausea, no vomiting, his abdomen is slightly distended, no localized [id number], no evidence of peritoneal irritation, will obtain CEA diut to persistent symptoms and persistent appendiceal dilatation. Recommend uppwer and lower GI endoscopy. Plan: Advance diet to soft mechanical diet Await for biopsy result Will place pt on Protonix 40 mg bid Carafate suspension 1 g p.o. twice a day Hold aspirin NSAIDs smoking alcohol Outpatient follow up with me in 4-6 weeks to review results and discuss further management IV antibiotic per primary team Protonix 40 mg daily Clear liquid diet Continue colonoscopy preparation Monitor labs We will continue to follow patient Plan discussed with patient and RN Thank you for this consult Plan discussed with patient in which all questions have been answered Case discussed with Dr. Paiz Plan discussed with: Patient, Other (rn) GENEVA NARVAEZ RESIDENT Mar 03, 2025 10:51
--- NOTE | 2025-03-03 11:59 | DVHDS2 ---
Discharge Summary Date of Admission Feb 23, 2025 at 19:08 Date of Discharge: Mar 03, 2025 Admitting Diagnosis Acute abdominal pain Rule out appendicitis Ruled out acute Cystitis Hepatic steatosis Status post cholecystectomy Diabetes mellitus type 2 Hypertension BPH Labs/Diagnostic Data: Laboratory Results Test 03/03/25 11:31 03/03/25 05:40 03/01/25 18:57 03/01/25 05:47 POC Glucose 269 mg/dl (70-106) White Blood Count 10.9 10^3/uL (4.4-10.8) Red Blood Count 4.27 10^6/uL (4.5-5.90) Hemoglobin 13.8 g/dL (13.5-17.5) Hematocrit 38.9 % (41.0-53.0) Mean Corpuscular Volume 90.9 fL (80.0-100.0) Mean Corpuscular Hemoglobin 32.2 pg (28.0-32.0) Mean Corpuscular Hemoglobin Concent 35.4 g/dL (32.0-36.0) Red Cell Distribution Width 13.1 % (11.8-14.3) Platelet Count 220 10^3/uL (140-450) Mean Platelet Volume 9.7 fL (6.9-10.8) Neutrophils (%) (Auto) 69.0 % (37.0-80.0) Lymphocytes (%) (Auto) 18.4 % (10.0-50.0) Monocytes (%) (Auto) 8.1 % (0.0-12.0) Eosinophils (%) (Auto) 4.0 % (0.0-7.0) Basophils (%) (Auto) 0.5 % (0.0-2.0) Neutrophils # (Auto) 7.5 10 ^3/uL (1.6-8.6) Lymphocytes # (Auto) 2.0 10 ^3/uL (0.4-5.4) Monocytes # (Auto) 0.9 10 ^3/uL (0-1.3) Eosinophils # (Auto) 0.4 10 ^3/uL (0-0.8) Basophils # (Auto) 0.1 10 ^3/uL (0-0.2) Nucleated Red Blood Cells 0.0 % Sodium Level 140 mmol/L (136-145) Potassium Level 3.2 mmol/L (3.5-5.1) Chloride Level 104 mmol/L (98-107) Carbon Dioxide Level 23 mmol/L (20-31) Anion Gap 13 (5-15) Blood Urea Nitrogen < 5 mg/dL (9-23) Creatinine 0.78 mg/dL (0.700-1.30) Glomerular Filtration Rate Calc 98 mL/min (>90) BUN/Creatinine Ratio 6.4 (10.0-20.0) Serum Glucose 124 mg/dL (74-106) Calcium Level 9.0 mg/dL (8.7-10.4) Prothrombin Time 11.5 sec (9.3-11.8) Prothrombin Time INR 1.09 (0.9-1.15) Activated Partial Thromboplast Time 32.2 SEC (24.5-34.5) Carcinoembryonic Antigen 1.06 ng/mL (<=5.0) Test 02/26/25 12:53 02/23/25 20:03 02/23/25 15:38 Total Bilirubin 1.0 mg/dL (0.2-1.0) Aspartate Amino Transferase (AST) 21 U/L (13-40) Alanine Aminotransferase (ALT) 36 U/L (7-40) Alkaline Phosphatase 76 U/L (46-116) Total Protein 6.8 g/dL (5.7-8.2) Albumin 4.1 g/dL (3.2-4.8) Urine Color Light-yellow (Yellow) Urine Clarity Clear (Clear) Urine pH 5.5 (5.0-9.0) Urine Specific [place] 1.011 (1.001-1.035) Urine Protein Negative (Negative) Urine Ketones Negative (Negative) Urine Blood Negative /uL (Negative) Urine Nitrite Negative (Negative) Urine Bilirubin Negative (Negative) Urine Urobilinogen Normal mg/dL (Negative) Urine Leukocyte Esterase Negative /uL (Negative) Urine RBC 1 /hpf (0 - 3) Urine Microscopic WBC < 1 /HPF (0-3) Urine Squamous Epithelial Cells None seen /hpf (<5) Urine Bacteria None seen /hpf (None Seen) Urine Mucus Few (None Seen) Urine Glucose Normal mg/dL (Normal) Lipase 39 U/L (12-53) Other Laboratory Tests 03/03/25 05:40 Brief Hx & Hospital Course: 69-year-old male presents for evaluation of abdominal pain. Patient reports onset of pain two weeks ago. He states over the past two days the pain has been diffuse more constant with associated nausea and vomiting. No fever or chills. No other acute complaints. CT scan abdomen and pelvis showed: Prominent/dilated appendix measuring up to 11 mm. No significant wall thickening or surrounding inflammatory changes are noted. While this could be within normal limits for the patient, given the dilatation, early acute appendicitis is not completely excluded. Recommend clinical correlation. The patient WBC is normal. Surgery was consult for possible appendicitis. However, Dr Gann did not think it is the appendix that cause problem. No emergent surgery. He recommend endoscopy and colonoscopy. GI was consult. Patient subsequently has colonoscopy which showed: Trace internal hemorrhoids otherwise essentially complete and normal colonoscopy examination up to the cecum and terminal ileum. Mild sigmoid muscular hypertrophy but no clear-cut diverticular disease. His EGD showed: Patient had a 1.5 cm gastro duodenal polyp seen within the pyloric channel and in the proximal part of the duodenal which was initially biopsied and this was removed completely via hot snare polypectomy and the specimens were retrieved. 2 cm sliding-type hiatal hernia with slightly irregular squamocolumnar junction no significant erosive esophagitis. Minimal gastroduodenitis otherwise normal examination up to the 2nd and 3rd part of the duodenum . Dr Paiz recommend protonix and carafate. Today, his pain improved. Patient able to tolerate diet. I am going to discharge him home. Advise him to follow up with GI specialist, dr Paiz, for biopsy follow up. Follow up with PCP per schedule. Activity as tolerate. Diet per home diet. PHYSICAL EXAMINATION: General Appearance: Alert, Oriented X3, Cooperative, No acute distress HEENT: Atraumatic, PERRLA, EOMI, Mucous membr. moist/pink Neck: Supple Lungs: Clear to auscultation Cardiovascular: Regular rate, Normal S1, Normal S2, No murmurs, Gallops, Rubs Abdomen: Normal bowel sounds, Soft, No tenderness Neuro: Cranial nerves 3-12 NL Psych/Mental Status: Mental status NL Condition at Discharge: Stable Final Diagnosis/Problems List Acute abdominal pain Rule out appendicitis Ruled out acute Cystitis Hepatic steatosis Status post cholecystectomy Diabetes mellitus type 2 Hypertension BPH Discharge Disposition: Home Discharge Instruct/Medications Diet: Regular Activity: No Restrictions, As Tolerated Follow Up/Referral: PCp in 7daysq Medications: ciprofloxcain Scheduled Albuterol Sulfate (Ventolin Mdi), 90 MCG IN TID Amoxicillin & Pot Clavulanate (Augmentin Tablet), 875 MG PO BID Aspirin (Aspirin Low Dose), 81 MG PO DAILY Atorvastatin Calcium (Atorvastatin Calcium), 1 TAB PO HS Ciprofloxacin Hcl (Ciprofloxacin Hcl), 1 TAB PO BID Empagliflozin (Jardiance), 25 MG PO QAM Guaifenesin (Mucinex), 1 TAB PO BID Hctz (Hydrochlorothiazide), 12.5 MG PO DAILY Insulin NPH Isophane & Reg (Hu (Novolin 70/30 (70-30) 100 Unit/ml), 20 INJ SC BIDWM Losartan Potassium (Losartan Potassium), 100 MG PO DAILY Metformin Hydrochloride (Metformin Hcl), 1,000 MG PO DAILY Pantoprazole Sodium Sesquihydr (Protonix), 40 MG PO DAILY, (Reported) Sucralfate (Carafate), 1 GM PO BID Tamsulosin Hcl (Tamsulosin Hcl), 0.4 MG PO QPM Scheduled PRN Promethazine-Dm (Promethazine Dm 6.25-15 mg/5Ml), 5 ML PO TIDPRN PRN Miscellaneous Medications Insulin Glargine (Lantus Solostar), 100 UNIT SC, (Reported) Sitagliptin Phosphate (Januvia), 1 TAB PO, (Reported) Discharge Statement: "Patient was advised to return to the ER or call 911 if any headaches, dizziness, shortness of breath, chest pain, abdominal pain, bleeding, fevers, or worsening of medical condition. Patient was counseled about treatment plan, medications, possible side effects, patientverbalized understanding. All questions were answered to the best of my ability. This discharge took greater then 30 minutes in planning, reviewing documentation, counseling the patient, and discussing with other team members." ASSESSMENT ASSESSMENT Assessment acute appendicitis acute cystitis with hematuria Date of Service: Mar 03, 2025 Billing Provider: MARJ MABRY MD Common Visit Codes: [id number] DISCH DAY >30min MARJ MABRY MD Mar 03, 2025 11:59
[2025-03-03] MEDS ORDERED: SUCR1TAB31 PO (12:00)
[2025-03-03] MEDS: POTASSIUM CHL 20 Meq TABLET PO ONE (12:02)
== END 2025-03-03 15:35 | disposition home or self-care (01) | DRG 241 ==
LOC: ER 14:37 → OVERFLOW 19:08 → WEST WING 02-24 03:25
PROVIDERS: ADMIT Internal Medicine; ATTEND Internal Medicine
PROC: 0DB98ZZ Excision of Duodenum, Via Natural or Artificial Opening Endoscopic (ICD-10-PCS; 2025-03-02)
PROC: 0DB68ZZ Excision of Stomach, Via Natural or Artificial Opening Endoscopic (ICD-10-PCS; 2025-03-02)
PROC: 0DJD8ZZ Inspection of Lower Intestinal Tract, Via Natural or Artificial Opening Endoscopic (ICD-10-PCS; 2025-03-02)
PROC: 0DB98ZX Excision of Duodenum, Via Natural or Artificial Opening Endoscopic, Diagnostic (ICD-10-PCS; principal; 2025-03-02 14:16)
PROC: 0DB68ZX Excision of Stomach, Via Natural or Artificial Opening Endoscopic, Diagnostic (ICD-10-PCS; 2025-03-02 14:16)
DX: K29.90 Gastroduodenitis, unspecified, without bleeding (principal); K83.8 Other specified diseases of biliary tract; K76.0 Fatty (change of) liver, not elsewhere classified; I10 Essential (primary) hypertension; E11.9 Type 2 diabetes mellitus without complications; J45.909 Unspecified asthma, uncomplicated; K52.9 Noninfective gastroenteritis and colitis, unspecified; K44.9 Diaphragmatic hernia without obstruction or gangrene; N40.0 Benign prostatic hyperplasia without lower urinary tract symptoms; K31.7 Polyp of stomach and duodenum; E78.5 Hyperlipidemia, unspecified; F41.9 Anxiety disorder, unspecified; K64.8 Other hemorrhoids; M62.89 Other specified disorders of muscle; Z90.49 Acquired absence of other specified parts of digestive tract; Z82.49 Family history of ischemic heart disease and other diseases of the circulatory system
CPT/HCPCS: 36415; 43239; 43251; 45378; 71045; 74176; 74177; 80048; 80053; 81001; 82378; 82962; 83690; 85025; 85610; 85730; 86850; 86900; 86901; 87040; 87086; 93005; 94640; G0378; J1815; J2003; J2470; J2543; J2704